=== PATIENT | female | born 1975 | race Two or more races ===

== ENCOUNTER 2019-05-28 14:28 | Inpatient (IN) | payer MEDICAID, OTHER ==
[~2019-05-28] VITALS: Ht 170.2 cm; Wt 103.3 kg
[2019-05-28] MEDS ORDERED: SODIUM CHLORIDE 0.9% 1,000 ML IV ONE (14:50)
[2019-05-28] MEDS ORDERED: HYDROmorphone HCL 2 MG/ML VL IV ONE (15:00)
[2019-05-28] MEDS ORDERED: ONDANSETRON HCL 4 MG/2 ML VIAL IV ONE (15:00)
[2019-05-28 16:02] LABS: Basophils # (auto) 0.1 uL; Basophils % (auto) 0.7 % (0.0-2.0); Eosinophils # (auto) 0.1 uL; Eosinophils % (auto) 1.4 % (0.0-7.0); Hematocrit 46.1 % (36.0-46.0); Hemoglobin 15.2 g/dL (12.2-16.2); Lymphocytes # (auto) 2.7 uL; Mean Corpuscular Hemoglobin 30.5 pg (28.0-32.0); Mean Corpuscular Hgb Conc. 33.1 g/dL (32.0-36.0); Mean Corpuscular Volume 92.2 fL (80.0-100.0); Monocytes # (auto) 0.5 uL; Monocytes % (auto) 5.1 % (0.0-12.0); Neutrophils % (auto) 63.8 % (37.0-80.0); Nucleated Red Blood Cells % 0.1 %; Platelet Count (auto) 233 10^3/uL (140-450); Red Cell Distribution Width 15.7 % (11.8-14.3); White Blood Cell 9.5 10^3/uL (4.4-10.8)
[2019-05-28 16:16] LABS: Albumin 2.9 g/dL (3.4-5.0); Anion Gap 9 (5-15); Blood Urea Nitrogen 8 mg/dL (7-18); Calcium 8.8 mg/dL (8.5-10.1); Carbon Dioxide 26 mmol/L (21-32); Chloride 102 mmol/L (98-107); Glucose 262 mg/dL (74-106); Magnesium 1.4 mg/dL (1.6-2.6); Sodium 137 mmol/L (136-145)
[2019-05-28 16:18] LABS: Alanine Aminotransferase 62 U/L (13-56); Aspartate Aminotransferase 30 U/L (15-37); BUN/Creatinine Ratio 11.9; GFR African American 122 mL/min; GFR Non-African American 101 mL/min
[2019-05-28 16:36] LABS: Alkaline Phosphatase 92 U/L (45-117); Bilirubin, Total 0.5 mg/dL (0.2-1.0); Total Protein 7.3 g/dL (6.4-8.2)
[2019-05-28] MEDS ORDERED: traMADol HCL 50 MG TAB PO PRN (18:30)
[2019-05-28] MEDS ORDERED: DEXTROSE (50%) 50ML SYRG IV PRN (18:30)
[2019-05-28] MEDS ORDERED: LACTULOSE 20Gm/30ML SOLN PO PRN (18:30)
[2019-05-28] MEDS ORDERED: ACETAMINOPHEN 500 MG TAB PO PRN (18:30)
[2019-05-28] MEDS ORDERED: NITROGLYCERIN 0.4 MG SL TAB SL PRN (18:30)
[2019-05-28] MEDS: SODIUM CHLORIDE 0.9% 1,000 ML IV SCH (18:50)
[2019-05-28 21:00] VITALS: BP 95/48
[2019-05-28] MEDS: PROMETHAZINE HCL 25 MG/ML 1ML IV PRN (21:09)
[2019-05-28] MEDS: ATORVASTATIN 20 MG TAB PO SCH (21:58)
[2019-05-28] MEDS: ACCU-CHEK COMFORT CURVE STRIP VI SCH (21:59)
[2019-05-28] MEDS: InsuLIN REG 1unit/0.01ml Soln (100units/ml) SC SCH (21:59)
[2019-05-28] MEDS: FAMOTIDINE 20 MG TAB PO SCH (21:59)
[2019-05-28 22:00] VITALS: BP 95/48
[2019-05-28] MEDS ORDERED: METOPROLOL TARTRATE 25 MG TAB PO SCH (22:00)
[2019-05-29] MEDS: TEMAZEPAM 15 MG CAP PO PRN (00:01)
[2019-05-29] MEDS: SODIUM CHLORIDE 0.9% 1,000 ML IV SCH ×2 (02:13→20:47)
[2019-05-29 05:00] VITALS: BP 103/60
[2019-05-29] MEDS: ACCU-CHEK COMFORT CURVE STRIP VI SCH ×4 (06:35→21:46)
[2019-05-29] MEDS: InsuLIN REG 1unit/0.01ml Soln (100units/ml) SC SCH ×3 (06:36→22:00)
[2019-05-29 06:50] LABS: Cholesterol 137 mg/dL (< 200); HDL Cholesterol 44 mg/dL (40-59); LDL Cholesterol 80 mg/dL (< 100); Triglycerides 99 mg/dL (< 150)
[2019-05-29] MEDS ORDERED: ADENOSINE 84 MG in GIVE UN-DILUTED 0 ML IV STA (08:31)
[2019-05-29 09:19] VITALS: BP 104/68
[2019-05-29] MEDS: METOPROLOL TARTRATE 25 MG TAB PO SCH ×2 (10:00→21:46)
[2019-05-29] MEDS: NITROGLYCERIN 0.2MG/HR TOPICAL PATCH TD SCH (10:06)
[2019-05-29] MEDS: FAMOTIDINE 20 MG TAB PO SCH (10:06)
[2019-05-29] MEDS: PROMETHAZINE HCL 25 MG/ML 1ML IV PRN (10:06)
[2019-05-29] MEDS: ENOXAPARIN SOD 40 MG/0.4 ML SYRINGE SC SCH (10:11)
[2019-05-29] MEDS: ASPirin 81 mg TAB PO SCH (10:12)
[2019-05-29] MEDS ORDERED: PANTOPRAZOLE 40 MG/10 ML VIAL INJ IV ONE (12:15)
[2019-05-29] MEDS ORDERED: DEXTROSE (50%) 50ML SYRG IV PRN (12:15)
[2019-05-29] MEDS: MAGNESIUM SULFATE 1GM/100ML 100 ML IV SCH ×2 (12:24→14:28)
[2019-05-29 13:00] VITALS: BP 146/111
[2019-05-29] MEDS ORDERED: MAGNESIUM SULFATE 1GM/100ML 100 ML IV ONE (14:27)
[2019-05-29] MEDS: ONDANSETRON HCL 4 MG/2 ML VIAL IV PRN ×2 (15:11→23:15)
[2019-05-29] MEDS: HYDROmorphone HCL 2 MG/ML VL IV PRN ×2 (15:11→23:14)
[2019-05-29 16:44] VITALS: BP 88/53
[2019-05-29 16:51] LABS: Alcohol, Urine < 3.0 mg/dL (0-5); Amphetamine Screen, Urine NEGATIVE (NEGATIVE); Barbiturate Scree,Urine NEGATIVE (NEGATIVE); Benzodiazephine Screen, Urine NEGATIVE (NEGATIVE); Cannabinoid Screen, Urine NEGATIVE (NEGATIVE); Cocaine Screen, Urine NEGATIVE (NEGATIVE); Opiate Scree,Urine NEGATIVE (NEGATIVE); Phencyclidine Screen, Urine NEGATIVE (NEGATIVE)
[2019-05-29 20:20] VITALS: BP 119/69
[2019-05-29] MEDS: ATORVASTATIN 20 MG TAB PO SCH (21:45)
[2019-05-29 22:00] VITALS: BP 119/69
[2019-05-30 05:00] VITALS: BP 94/74
[2019-05-30 06:08] LABS: Basophils # (auto) 0.1 uL; Basophils % (auto) 0.6 % (0.0-2.0); Eosinophils # (auto) 0.2 uL; Eosinophils % (auto) 2.5 % (0.0-7.0); Hematocrit 42.6 % (36.0-46.0); Hemoglobin 14.3 g/dL (12.2-16.2); Lymphocytes # (auto) 3.8 uL; Lymphocytes % (auto) 42.8 % (10.0-50.0); Mean Corpuscular Hemoglobin 31.1 pg (28.0-32.0); Mean Corpuscular Hgb Conc. 33.6 g/dL (32.0-36.0); Mean Corpuscular Volume 92.3 fL (80.0-100.0); Monocytes # (auto) 0.5 uL; Monocytes % (auto) 5.1 % (0.0-12.0); Neutrophils # (auto) 4.4 uL; Nucleated Red Blood Cells % 0.1 %; Platelet Count (auto) 239 10^3/uL (140-450); Red Blood Cells 4.62 10^6/uL (4.0-5.20); Red Cell Distribution Width 15.8 % (11.8-14.3); White Blood Cell 8.9 10^3/uL (4.4-10.8)
[2019-05-30] MEDS: ACCU-CHEK COMFORT CURVE STRIP VI SCH ×4 (06:14→21:17)
[2019-05-30] MEDS: InsuLIN REG 1unit/0.01ml Soln (100units/ml) SC SCH ×4 (06:14→22:31)
[2019-05-30 06:17] LABS: Calcium 8.9 mg/dL (8.5-10.1); Potassium 3.4 mmol/L (3.5-5.1)
[2019-05-30 06:19] LABS: BUN/Creatinine Ratio 10.6
[2019-05-30 06:22] LABS: Bilirubin, Total 0.8 mg/dL (0.2-1.0); Total Protein 7.3 g/dL (6.4-8.2)
[2019-05-30 08:12] VITALS: BP 124/67
[2019-05-30 09:40] VITALS: BP 124/67
[2019-05-30] MEDS: NITROGLYCERIN 0.2MG/HR TOPICAL PATCH TD SCH (10:00)
[2019-05-30] MEDS ORDERED: POTASSIUM CHLORIDE 20 MEQ, LIDOCAINE 1% (LOCAL ANESTH.) 2 ML in SODIUM CHL 0.9% 100 ML IV ONE (10:00)
[2019-05-30] MEDS: PANTOPRAZOLE 40 MG/10 ML VIAL INJ IV SCH (10:53)
[2019-05-30] MEDS: ASPirin 81 mg TAB PO SCH (10:53)
[2019-05-30] MEDS: ENOXAPARIN SOD 40 MG/0.4 ML SYRINGE SC SCH (10:54)
[2019-05-30] MEDS: METOPROLOL TARTRATE 25 MG TAB PO SCH ×2 (10:54→22:31)
[2019-05-30] MEDS: HYDROmorphone HCL 2 MG/ML VL IV PRN ×2 (10:57→17:46)
[2019-05-30] MEDS: SODIUM CHLORIDE 0.9% 1,000 ML IV SCH ×2 (12:32→23:39)
[2019-05-30 14:53] VITALS: BP 139/78
[2019-05-30 16:46] VITALS: BP 112/86
[2019-05-30] MEDS: SUCRALFATE 1 GM/10 ML ORAL SUSP PO SCH ×2 (17:06→22:30)
[2019-05-30] MEDS: ONDANSETRON HCL 4 MG/2 ML VIAL IV PRN (17:46)
[2019-05-30 20:15] VITALS: BP 117/77
[2019-05-30] MEDS: METOCLOPRAMIDE HCL 5MG/ml INJ 2ml VIAL IV SCH (22:00)
[2019-05-30] MEDS: ATORVASTATIN 20 MG TAB PO SCH (22:30)
[2019-05-31 05:30] VITALS: BP 121/69
[2019-05-31] MEDS: METOCLOPRAMIDE HCL 5MG/ml INJ 2ml VIAL IV SCH ×3 (06:00→22:00)
[2019-05-31] MEDS: ACCU-CHEK COMFORT CURVE STRIP VI SCH ×4 (06:37→22:00)
[2019-05-31 06:38] LABS: Basophils # (auto) 0 uL; Basophils % (auto) 0.6 % (0.0-2.0); Eosinophils # (auto) 0.2 uL; Eosinophils % (auto) 3.2 % (0.0-7.0); Lymphocytes # (auto) 2.6 uL; Lymphocytes % (auto) 39.2 % (10.0-50.0); Mean Corpuscular Hemoglobin 30.8 pg (28.0-32.0); Mean Corpuscular Hgb Conc. 33.3 g/dL (32.0-36.0); Mean Corpuscular Volume 92.6 fL (80.0-100.0); Monocytes # (auto) 0.4 uL; Monocytes % (auto) 6.6 % (0.0-12.0); Neutrophils # (auto) 3.3 uL; Neutrophils % (auto) 50.4 % (37.0-80.0); Nucleated Red Blood Cells % 0.1 %; Platelet Count (auto) 184 10^3/uL (140-450); Red Blood Cells 4.21 10^6/uL (4.0-5.20); Red Cell Distribution Width 15.4 % (11.8-14.3); White Blood Cell 6.6 10^3/uL (4.4-10.8)
[2019-05-31] MEDS: InsuLIN REG 1unit/0.01ml Soln (100units/ml) SC SCH ×4 (06:38→22:13)
[2019-05-31] MEDS: SUCRALFATE 1 GM/10 ML ORAL SUSP PO SCH ×4 (06:42→22:00)
[2019-05-31 06:54] LABS: Potassium 3.5 mmol/L (3.5-5.1)
[2019-05-31 07:01] LABS: Albumin 2.3 g/dL (3.4-5.0); BUN/Creatinine Ratio 8.2; Bilirubin, Total 0.7 mg/dL (0.2-1.0); Calcium 8.6 mg/dL (8.5-10.1); Total Protein 6.1 g/dL (6.4-8.2)
[2019-05-31 08:15] VITALS: BP 119/79
[2019-05-31 09:00] VITALS: BP 119/79
[2019-05-31] MEDS: ASPirin 81 mg TAB PO SCH (09:34)
[2019-05-31] MEDS: PANTOPRAZOLE 40 MG/10 ML VIAL INJ IV SCH (09:34)
[2019-05-31] MEDS: METOPROLOL TARTRATE 25 MG TAB PO SCH ×2 (09:35→22:13)
[2019-05-31] MEDS: HYDROmorphone HCL 2 MG/ML VL IV PRN ×2 (09:35→18:13)
[2019-05-31] MEDS: ENOXAPARIN SOD 40 MG/0.4 ML SYRINGE SC SCH (09:35)
[2019-05-31] MEDS: NITROGLYCERIN 0.2MG/HR TOPICAL PATCH TD SCH (10:00)
[2019-05-31 13:00] VITALS: BP 116/79
[2019-05-31] MEDS: SODIUM CHLORIDE 0.9% 1,000 ML IV SCH (13:23)
[2019-05-31] MEDS ORDERED: LORazepam 0.5 MG TAB PO PRN (13:45)
[2019-05-31] MEDS: ONDANSETRON HCL 4 MG/2 ML VIAL IV PRN (19:25)
[2019-05-31 22:00] VITALS: BP 109/69
[2019-05-31] MEDS: ATORVASTATIN 20 MG TAB PO SCH (22:00)
[2019-05-31] MEDS: TEMAZEPAM 15 MG CAP PO PRN (22:01)
[2019-06-01] MEDS: SODIUM CHLORIDE 0.9% 1,000 ML IV SCH ×2 (02:19→15:39)
[2019-06-01 05:37] LABS: Potassium 3.7 mmol/L (3.5-5.1)
[2019-06-01 05:47] LABS: BUN/Creatinine Ratio 4.9; Calcium 8.9 mg/dL (8.5-10.1)
[2019-06-01] MEDS: METOCLOPRAMIDE HCL 5MG/ml INJ 2ml VIAL IV SCH ×3 (05:59→22:00)
[2019-06-01] MEDS: ACCU-CHEK COMFORT CURVE STRIP VI SCH ×4 (05:59→22:00)
[2019-06-01 06:00] VITALS: BP 121/74
[2019-06-01] MEDS: InsuLIN REG 1unit/0.01ml Soln (100units/ml) SC SCH ×4 (06:10→22:00)
[2019-06-01] MEDS: SUCRALFATE 1 GM/10 ML ORAL SUSP PO SCH ×4 (06:10→21:55)
[2019-06-01] MEDS ORDERED: LIDOCAINE VISCOUS 2% 15ML UD ONE (08:35)
[2019-06-01] MEDS ORDERED: SODIUM CHLORIDE LOCK 10 ML ONE (08:35)
[2019-06-01] MEDS ORDERED: MIDAZOLAM HCL 5 MG/ML-1ML VIAL ONE (08:36)
[2019-06-01] MEDS ORDERED: diphenhdrAMINE HCL 50 MG/1 ML VL ONE (08:36)
[2019-06-01] MEDS ORDERED: fentaNYL CITRATE 100 MCG/2 ML VL ONE (08:36)
[2019-06-01] MEDS: PANTOPRAZOLE 40 MG/10 ML VIAL INJ IV SCH (09:07)
[2019-06-01] MEDS: METOPROLOL TARTRATE 25 MG TAB PO SCH ×2 (09:07→21:56)
[2019-06-01 09:45] VITALS: BP 148/96
[2019-06-01] MEDS: NITROGLYCERIN 0.2MG/HR TOPICAL PATCH TD SCH (10:00)
[2019-06-01] MEDS: ASPirin 81 mg TAB PO SCH (10:00)
[2019-06-01] MEDS: ENOXAPARIN SOD 40 MG/0.4 ML SYRINGE SC SCH (10:00)
[2019-06-01 10:36] LABS: INR 1.01 (0.9-1.15); Partial Thromboplastin Time 26.4 sec (23.64-32.05)
[2019-06-01 13:00] VITALS: BP 117/80
[2019-06-01 16:49] VITALS: BP 122/90
[2019-06-01] MEDS: HYDROmorphone HCL 2 MG/ML VL IV PRN (19:00)
[2019-06-01] MEDS: ATORVASTATIN 20 MG TAB PO SCH (21:56)
[2019-06-01 22:00] VITALS: BP 125/54
[2019-06-02 05:00] VITALS: BP 116/68
[2019-06-02] MEDS: SODIUM CHLORIDE 0.9% 1,000 ML IV SCH (06:41)
[2019-06-02] MEDS: SUCRALFATE 1 GM/10 ML ORAL SUSP PO SCH ×2 (06:42→10:03)
[2019-06-02] MEDS: METOCLOPRAMIDE HCL 5MG/ml INJ 2ml VIAL IV SCH ×3 (06:42→22:00)
[2019-06-02] MEDS: ACCU-CHEK COMFORT CURVE STRIP VI SCH ×4 (06:43→22:27)
[2019-06-02] MEDS: InsuLIN REG 1unit/0.01ml Soln (100units/ml) SC SCH ×4 (06:43→22:28)
[2019-06-02 09:00] VITALS: BP 110/62
[2019-06-02] MEDS: PANTOPRAZOLE 40 MG/10 ML VIAL INJ IV SCH (10:03)
[2019-06-02] MEDS: NITROGLYCERIN 0.2MG/HR TOPICAL PATCH TD SCH (10:04)
[2019-06-02] MEDS: HYDROmorphone HCL 2 MG/ML VL IV PRN ×2 (10:06→23:01)
[2019-06-02] MEDS: METOPROLOL TARTRATE 25 MG TAB PO SCH ×2 (10:06→22:26)
[2019-06-02] MEDS: ENOXAPARIN SOD 40 MG/0.4 ML SYRINGE SC SCH (10:06)
[2019-06-02] MEDS: ASPirin 81 mg TAB PO SCH (10:06)
[2019-06-02 13:25] VITALS: BP 99/47
[2019-06-02 17:00] VITALS: BP 97/50
[2019-06-02 21:53] VITALS: BP 113/70
[2019-06-02] MEDS: ATORVASTATIN 20 MG TAB PO SCH (22:25)
[2019-06-02] MEDS: PANTOPRAZOLE 40 MG TAB PO SCH (22:27)
[2019-06-03 05:00] VITALS: BP 109/56
[2019-06-03] MEDS: METOCLOPRAMIDE HCL 5MG/ml INJ 2ml VIAL IV SCH (06:00)
[2019-06-03] MEDS: ACCU-CHEK COMFORT CURVE STRIP VI SCH ×2 (06:09→11:30)
[2019-06-03] MEDS: InsuLIN REG 1unit/0.01ml Soln (100units/ml) SC SCH ×2 (06:21→11:30)
[2019-06-03 06:56] LABS: Basophils # (auto) 0 uL; Basophils % (auto) 0.3 % (0.0-2.0); Eosinophils # (auto) 0.3 uL; Eosinophils % (auto) 3.6 % (0.0-7.0); Hematocrit 38.8 % (36.0-46.0); Hemoglobin 13.2 g/dL (12.2-16.2); Lymphocytes % (auto) 28.6 % (10.0-50.0); Mean Corpuscular Hemoglobin 31.3 pg (28.0-32.0); Mean Corpuscular Hgb Conc. 34.1 g/dL (32.0-36.0); Monocytes # (auto) 0.4 uL; Monocytes % (auto) 5.1 % (0.0-12.0); Neutrophils # (auto) 4.5 uL; Neutrophils % (auto) 62.4 % (37.0-80.0); Nucleated Red Blood Cells % 0.1 %; Platelet Count (auto) 198 10^3/uL (140-450); Red Blood Cells 4.22 10^6/uL (4.0-5.20); Red Cell Distribution Width 15.5 % (11.8-14.3); White Blood Cell 7.1 10^3/uL (4.4-10.8)
[2019-06-03] MEDS: SUCRALFATE 1 GM/10 ML ORAL SUSP PO SCH ×2 (07:00→11:30)
[2019-06-03 07:13] LABS: Albumin 2.3 g/dL (3.4-5.0); Calcium 8.6 mg/dL (8.5-10.1); Potassium 3.7 mmol/L (3.5-5.1)
[2019-06-03 07:17] LABS: BUN/Creatinine Ratio 5.6; Bilirubin, Total 0.4 mg/dL (0.2-1.0); Total Protein 6.2 g/dL (6.4-8.2)
[2019-06-03 08:00] VITALS: BP 123/62
[2019-06-03 09:00] VITALS: BP 107/62
[2019-06-03] MEDS ORDERED: SODIUM CHLORIDE LOCK 10 ML ONE (09:12)
[2019-06-03] MEDS ORDERED: diphenhdrAMINE HCL 50 MG/1 ML VL ONE (09:13)
[2019-06-03] MEDS ORDERED: FLUMAZENIL 0.1 MG/ML INJ 10ML MDV IV ONE (09:13)
[2019-06-03] MEDS ORDERED: NALOXONE HCL 0.4 MG/ML VIAL ONE (09:13)
[2019-06-03] MEDS ORDERED: LIDOCAINE VISCOUS 2% 15ML UD ONE (09:13)
[2019-06-03] MEDS: NITROGLYCERIN 0.2MG/HR TOPICAL PATCH TD SCH (10:00)
[2019-06-03] MEDS: ASPirin 81 mg TAB PO SCH (10:00)
[2019-06-03] MEDS: METOPROLOL TARTRATE 25 MG TAB PO SCH (10:00)
[2019-06-03] MEDS: ENOXAPARIN SOD 40 MG/0.4 ML SYRINGE SC SCH (10:00)
[2019-06-03] MEDS: PANTOPRAZOLE 40 MG TAB PO SCH (10:00)
[2019-06-03] MEDS: SODIUM CHLORIDE 0.9% 1,000 ML IV SCH (10:53)
[2019-06-03] MEDS: MIDAZOLAM HCL 5 MG/ML-1ML VIAL ONE ×2 (13:36→13:39)
[2019-06-03] MEDS: fentaNYL CITRATE 100 MCG/2 ML VL ONE ×2 (13:36→13:39)
[2019-06-03 14:16] VITALS: BP 107/62
[2019-06-03 14:18] VITALS: BP 124/74
== END 2019-06-03 15:25 | disposition home or self-care (01) | DRG 241 ==
LOC: ER 14:41 → TELE 14:42 → TELE-EAST 20:18
PROVIDERS: ADMIT Internal Medicine; ATTEND Internal Medicine
PROC: 0DB78ZX Excision of Stomach, Pylorus, Via Natural or Artificial Opening Endoscopic, Diagnostic (ICD-10-PCS; principal; 2019-06-03 13:32)
DX: K29.70 Gastritis, unspecified, without bleeding (principal); E43 Unspecified severe protein-calorie malnutrition; K31.84 Gastroparesis; E11.43 Type 2 diabetes mellitus with diabetic autonomic (poly)neuropathy; E66.01 Morbid (severe) obesity due to excess calories; E83.42 Hypomagnesemia; R07.89 Other chest pain; I10 Essential (primary) hypertension; Z88.6 Allergy status to analgesic agent; Z83.3 Family history of diabetes mellitus; Z90.49 Acquired absence of other specified parts of digestive tract; Z91.19 Patient's noncompliance with other medical treatment and regimen; Z68.35 Body mass index [BMI] 35.0-35.9, adult
CPT/HCPCS: 36415; 43239; 71045; 76705; 78452; 80048; 80053; 80061; 80307; 82550; 82962; 83036; 83690; 83735; 83880; 84484; 84702; 85025; 85379; 85610; 85652; 85730; 86141; 87081; 93017; 96361; 96365; 96375; C9113; G0378; J0153; J1815; J2001; J2250; J2405

== ENCOUNTER 2019-06-12 12:36 | Emergency (ER) | payer MEDICAID ==
[~2019-06-12] VITALS: Ht 170.2 cm; Wt 90.7 kg
[2019-06-12 14:05] LABS: Basophils # (auto) 0.1 uL; Basophils % (auto) 0.8 % (0.0-2.0); Eosinophils # (auto) 0.2 uL; Eosinophils % (auto) 1.9 % (0.0-7.0); Hematocrit 45.4 % (36.0-46.0); Hemoglobin 15.3 g/dL (12.2-16.2); Lymphocytes # (auto) 3.3 uL; Mean Corpuscular Hemoglobin 31.2 pg (28.0-32.0); Mean Corpuscular Hgb Conc. 33.6 g/dL (32.0-36.0); Mean Corpuscular Volume 92.7 fL (80.0-100.0); Monocytes # (auto) 0.7 uL; Monocytes % (auto) 5.4 % (0.0-12.0); Neutrophils % (auto) 64.9 % (37.0-80.0); Platelet Count (auto) 357 10^3/uL (140-450); Red Cell Distribution Width 15.4 % (11.8-14.3); White Blood Cell 12.4 10^3/uL (4.4-10.8)
[2019-06-12 14:23] LABS: Albumin 3.5 g/dL (3.4-5.0); Potassium 3.8 mmol/L (3.5-5.1)
[2019-06-12 14:26] LABS: BUN/Creatinine Ratio 13.4; Bilirubin, Total 0.6 mg/dL (0.2-1.0); Total Protein 8.8 g/dL (6.4-8.2)
[2019-06-12] MEDS ORDERED: SODIUM CHLORIDE 0.9% 1,000 ML IV ONE (20:30)
[2019-06-12] MEDS ORDERED: ONDANSETRON HCL 4 MG/2 ML VIAL IV ONE (20:30)
[2019-06-12] MEDS ORDERED: KETOROLAC TROMETH 15 mg/ml 1ML VL IV ONE (20:45)
[2019-06-12] MEDS ORDERED: LORazepam 2MG/ML-1ML VIAL IV ONE (23:30)
[2019-06-13 00:58] VITALS: BP 153/101
[2019-06-13] MEDS ORDERED: SODIUM CHLORIDE 0.9% 1,000 ML IV ONE (01:00)
== END 2019-06-13 02:49 | disposition home or self-care (01) ==
LOC: ER 12:36
DX: K29.00 Acute gastritis without bleeding (principal); E11.9 Type 2 diabetes mellitus without complications; I10 Essential (primary) hypertension; Z88.5 Allergy status to narcotic agent
CPT/HCPCS: 36415; 74176; 80053; 82010; 82962; 85025; 96361; 96374; 96375; 99284; J1885; J2060; J2405

== ENCOUNTER 2021-10-02 22:35 | Inpatient (IN) | payer MEDICAID ==
[~2021-10-02] VITALS: Ht 170.2 cm; Wt 103.4 kg
[2021-10-02 23:36] LABS: Basophils # (auto) 0.3 10 ^3/uL (0-0.2); Basophils % (auto) 2.4 % (0.0-2.0); Eosinophils # (auto) 0 10 ^3/uL (0-0.8); Eosinophils % (auto) 0.2 % (0.0-7.0); Hematocrit 47.5 % (36.0-46.0); Hemoglobin 15.7 g/dL (12.2-16.2); Lymphocytes # (auto) 1.7 10 ^3/uL (0.4-5.4); Lymphocytes % (auto) 14.6 % (10.0-50.0); Mean Corpuscular Hemoglobin 30.8 pg (28.0-32.0); Mean Corpuscular Hgb Conc. 33.1 g/dL (32.0-36.0); Mean Corpuscular Volume 93.2 fL (80.0-100.0); Monocytes # (auto) 0.5 10 ^3/uL (0-1.3); Monocytes % (auto) 4.2 % (0.0-12.0); Neutrophils # (auto) 9.2 10 ^3/uL (1.6-8.6); Neutrophils % (auto) 78.6 % (37.0-80.0); Nucleated Red Blood Cells % 0.1 %; Red Cell Distribution Width 13.3 % (11.8-14.3); White Blood Cell 11.7 10^3/uL (4.4-10.8)
[2021-10-02 23:55] LABS: Albumin 3.6 g/dL (3.4-5.0); Calcium 9.7 mg/dL (8.5-10.1); Potassium 4.3 mmol/L (3.5-5.1)
[2021-10-02 23:58] LABS: BUN/Creatinine Ratio 32.4; Bilirubin, Total 0.8 mg/dL (0.2-1.0); Total Protein 8.7 g/dL (6.4-8.2)
[2021-10-03] MEDS ORDERED: ONDANSETRON HCL 4 MG/2 ML VIAL IV ONE (02:00)
[2021-10-03] MEDS ORDERED: DEXTROSE (50%) 50ML SYRG IV PRN ×2 (02:00→11:30)
[2021-10-03] MEDS ORDERED: SODIUM CHLORIDE 0.9% 2,000 ML IV ONE (02:00)
[2021-10-03] MEDS: ACCU-CHEK COMFORT CURVE STRIP VI SCH ×6 (04:25→23:57)
[2021-10-03] MEDS: InsuLIN REG 1unit/0.01ml Soln (100units/ml) SC SCH ×6 (04:30→23:57)
[2021-10-03] MEDS ORDERED: ACETAMINOPHEN 325 MG TAB PO ONE (05:00)
[2021-10-03] MEDS ORDERED: METOCLOPRAMIDE HCL 5MG/ml INJ 2ml VIAL IV ONE ×2 (06:30→10:15)
[2021-10-03 06:54] LABS: Calcium 9.9 mg/dL (8.5-10.1); Potassium 4.2 mmol/L (3.5-5.1)
[2021-10-03 06:58] LABS: BUN/Creatinine Ratio 33.6
[2021-10-03] MEDS ORDERED: SODIUM CHLORIDE 0.9% 1,000 ML IV ONE (08:15)
[2021-10-03] MEDS ORDERED: InsuLIN REG 1unit/0.01ml Soln (100units/ml) IV ONE (10:30)
[2021-10-03] MEDS ORDERED: LACTATED RINGER'S 1,000 ML IV ONE ×2 (11:15→11:30)
[2021-10-03] MEDS ORDERED: ONDANSETRON HCL 4 MG/2 ML VIAL IV PRN (11:30)
[2021-10-03] MEDS ORDERED: INSULIN LANTUS (GLARGINE) 1 /0.01ml (100units/ml) SC ONE (11:30)
[2021-10-03] MEDS ORDERED: DOCUSATE SOD 100 MG CAP PO PRN (11:30)
[2021-10-03] MEDS ORDERED: METOCLOPRAMIDE HCL 5MG/ml INJ 2ml VIAL IV PRN (11:30)
[2021-10-03] MEDS ORDERED: HYDROcodone-ACET 5/325MG TAB PO PRN (11:30)
[2021-10-03] MEDS ORDERED: ACETAMINOPHEN 325 MG TAB PO PRN (11:30)
[2021-10-03 15:06] LABS: BUN/Creatinine Ratio 40.8; Calcium 8.9 mg/dL (8.5-10.1); Potassium 3.8 mmol/L (3.5-5.1)
[2021-10-03 18:49] LABS: BUN/Creatinine Ratio 35.5
[2021-10-03 22:39] LABS: BUN/Creatinine Ratio 30.4; Calcium 8.6 mg/dL (8.5-10.1); Potassium 3.8 mmol/L (3.5-5.1)
[2021-10-04 00:35] VITALS: BP 166/84
[2021-10-04] MEDS ORDERED: dilTIAZem 25 MG/5 ML VIAL IV ONE (01:00)
[2021-10-04] MEDS ORDERED: PIOG1TAB37 PO (01:09)
[2021-10-04] MEDS ORDERED: ATOR-47 PO (01:09)
[2021-10-04] MEDS ORDERED: GLIP5TAB12 PO (01:09)
[2021-10-04] MEDS ORDERED: FURO40TA4 PO (01:09)
[2021-10-04 02:09] LABS: BUN/Creatinine Ratio 29.2; Calcium 9.1 mg/dL (8.5-10.1); Potassium 3.6 mmol/L (3.5-5.1)
[2021-10-04] MEDS: InsuLIN REG 1unit/0.01ml Soln (100units/ml) SC SCH ×4 (04:00→17:19)
[2021-10-04] MEDS: ACCU-CHEK COMFORT CURVE STRIP VI SCH ×5 (04:00→16:59)
[2021-10-04 05:00] VITALS: BP 135/71
[2021-10-04 06:29] LABS: BUN/Creatinine Ratio 32.7; Potassium 3.5 mmol/L (3.5-5.1)
[2021-10-04 09:00] VITALS: BP 134/92
[2021-10-04] MEDS ORDERED: PANTOPRAZOLE 40 MG/10 ML VIAL INJ IV ONE (10:45)
[2021-10-04 13:00] VITALS: BP 147/101
[2021-10-04] MEDS ORDERED: SODIUM CHLORIDE 0.9% 1,000 ML IV SCH (14:45)
[2021-10-04] MEDS ORDERED: DEXTROSE (50%) 50ML SYRG IV PRN (14:45)
[2021-10-04] MEDS ORDERED: LABETALOL HCL 5 MG/ML 4ML SYRINGE IV PRN (14:45)
[2021-10-04] MEDS ORDERED: CHOL20007 PO (16:05)
[2021-10-04] MEDS ORDERED: METF-490 PO (16:05)
[2021-10-04] MEDS ORDERED: INSU300I SC (16:05)
[2021-10-04] MEDS ORDERED: SERT25TA14 PO (16:05)
[2021-10-04] MEDS ORDERED: MONT-8 PO (16:05)
[2021-10-04] MEDS ORDERED: POLY33504 PO (16:05)
[2021-10-04] MEDS ORDERED: SEMA14TA PO (16:05)
[2021-10-04] MEDS ORDERED: SERT50TA19 PO (16:05)
[2021-10-04] MEDS ORDERED: SITA100T7 PO (16:05)
[2021-10-04] MEDS ORDERED: ASPI-543 PO (16:05)
[2021-10-04] MEDS: SUCRALFATE 1 GM TAB PO SCH ×2 (16:59→22:00)
[2021-10-04 17:00] VITALS: BP 163/97
[2021-10-04] MEDS: METOCLOPRAMIDE HCL 5MG/ml INJ 2ml VIAL IV SCH (17:01)
[2021-10-04 22:00] VITALS: BP 152/90
[2021-10-04] MEDS ORDERED: INSULIN LANTUS (GLARGINE) 1 /0.01ml (100units/ml) SC SCH (22:00)
[2021-10-04] MEDS ORDERED: PANTOPRAZOLE 40 MG TAB PO SCH (22:00)
[2021-10-04] MEDS: KETOROLAC TROMETH 30 MG/ML 1ML VIAL IV PRN (22:50)
[2021-10-04] MEDS: PANTOPRAZOLE 40 MG/10 ML VIAL INJ IV SCH (23:34)
[2021-10-05] MEDS: METOCLOPRAMIDE HCL 5MG/ml INJ 2ml VIAL IV SCH ×4 (01:48→17:43)
[2021-10-05 05:00] VITALS: BP 105/70
[2021-10-05] MEDS: ACCU-CHEK COMFORT CURVE STRIP VI SCH ×4 (06:00→17:43)
[2021-10-05] MEDS: InsuLIN REG 1unit/0.01ml Soln (100units/ml) SC SCH ×4 (06:00→18:08)
[2021-10-05 06:38] LABS: Albumin 2.6 g/dL (3.4-5.0); Calcium 8.4 mg/dL (8.5-10.1)
[2021-10-05 06:41] LABS: BUN/Creatinine Ratio 27.6; Bilirubin, Total 0.8 mg/dL (0.2-1.0); Total Protein 6.5 g/dL (6.4-8.2)
[2021-10-05 06:47] LABS: Basophils # (auto) 0.1 10 ^3/uL (0-0.2); Basophils % (auto) 0.9 % (0.0-2.0); Eosinophils # (auto) 0.1 10 ^3/uL (0-0.8); Eosinophils % (auto) 0.9 % (0.0-7.0); Hematocrit 40.9 % (36.0-46.0); Hemoglobin 13.8 g/dL (12.2-16.2); Lymphocytes # (auto) 3.8 10 ^3/uL (0.4-5.4); Lymphocytes % (auto) 45.9 % (10.0-50.0); Mean Corpuscular Hemoglobin 31.3 pg (28.0-32.0); Mean Corpuscular Hgb Conc. 33.8 g/dL (32.0-36.0); Mean Corpuscular Volume 92.8 fL (80.0-100.0); Monocytes # (auto) 0.6 10 ^3/uL (0-1.3); Monocytes % (auto) 6.9 % (0.0-12.0); Neutrophils # (auto) 3.8 10 ^3/uL (1.6-8.6); Neutrophils % (auto) 45.4 % (37.0-80.0); Nucleated Red Blood Cells % 0.1 %; Red Blood Cells 4.41 10^6/uL (4.0-5.20); Red Cell Distribution Width 12.9 % (11.8-14.3); White Blood Cell 8.3 10^3/uL (4.4-10.8)
[2021-10-05] MEDS: KETOROLAC TROMETH 30 MG/ML 1ML VIAL IV PRN (06:58)
[2021-10-05] MEDS: SUCRALFATE 1 GM TAB PO SCH ×4 (07:00→21:20)
[2021-10-05 09:00] VITALS: BP 128/77
[2021-10-05] MEDS: PANTOPRAZOLE 40 MG/10 ML VIAL INJ IV SCH ×2 (09:43→21:28)
[2021-10-05] MEDS: LISINOPRIL 20 MG TAB PO SCH (09:43)
[2021-10-05] MEDS: POTASSIUM CHL 20MEQ/100ML 100 ML IV SCH ×2 (12:38→14:49)
[2021-10-05 13:00] VITALS: BP 109/58
[2021-10-05] MEDS: SODIUM CHLORIDE 0.9% 1,000 ML IV SCH (14:50)
[2021-10-05 16:45] VITALS: BP 114/73
[2021-10-05 22:00] VITALS: BP 127/78
[2021-10-05] MEDS ORDERED: INSULIN LANTUS (GLARGINE) 1 /0.01ml (100units/ml) SC SCH (22:00)
[2021-10-05 23:14] LABS: Urine Bacteria NONE SEEN /hpf (None Seen); Urine Blood Negative /uL (Negative); Urine Hyaline Cast FEW /lpf (0 - 2); Urine Specific Gravity 1.026 (1.001-1.035); Urine WBC 5 /hpf (0 - 5)
[2021-10-06] MEDS: ACCU-CHEK COMFORT CURVE STRIP VI SCH ×4 (00:53→17:19)
[2021-10-06] MEDS: METOCLOPRAMIDE HCL 5MG/ml INJ 2ml VIAL IV SCH ×4 (00:53→17:18)
[2021-10-06] MEDS: InsuLIN REG 1unit/0.01ml Soln (100units/ml) SC SCH ×4 (01:10→18:14)
[2021-10-06 05:00] VITALS: BP 112/64
[2021-10-06 05:43] LABS: Potassium 3.8 mmol/L (3.5-5.1)
[2021-10-06 05:51] LABS: BUN/Creatinine Ratio 21.7; Calcium 8.5 mg/dL (8.5-10.1); Magnesium 2.3 mg/dL (1.6-2.6)
[2021-10-06] MEDS: SODIUM CHLORIDE 0.9% 1,000 ML IV SCH (06:40)
[2021-10-06] MEDS: SUCRALFATE 1 GM TAB PO SCH ×3 (07:23→17:18)
[2021-10-06 09:05] VITALS: BP 120/70
[2021-10-06] MEDS: LISINOPRIL 20 MG TAB PO SCH (09:38)
[2021-10-06] MEDS: PANTOPRAZOLE 40 MG/10 ML VIAL INJ IV SCH (09:38)
[2021-10-06 12:49] VITALS: BP 120/74
[2021-10-06] MEDS ORDERED: METO5TAB67 PO (13:23)
[2021-10-06] MEDS ORDERED: PANT40TA2 PO (13:23)
[2021-10-06] MEDS ORDERED: SUCR1TAB22 PO (13:23)
[2021-10-06 16:45] VITALS: BP 112/72
[2021-10-06 17:20] VITALS: BP 120/70
== END 2021-10-06 18:54 | disposition home or self-care (01) | DRG 241 ==
LOC: ER 22:35 → TELE 10-03 11:27 → TELE-WESTW 10-03 22:50
PROVIDERS: ADMIT Internal Medicine; ATTEND Internal Medicine
DX: K29.70 Gastritis, unspecified, without bleeding (principal); N17.0 Acute kidney failure with tubular necrosis; N18.9 Chronic kidney disease, unspecified; E11.21 Type 2 diabetes mellitus with diabetic nephropathy; E11.22 Type 2 diabetes mellitus with diabetic chronic kidney disease; E87.6 Hypokalemia; E11.43 Type 2 diabetes mellitus with diabetic autonomic (poly)neuropathy; K31.84 Gastroparesis; E78.5 Hyperlipidemia, unspecified; Z20.822 Contact with and (suspected) exposure to COVID-19; E66.9 Obesity, unspecified; I12.9 Hypertensive chronic kidney disease with stage 1 through stage 4 chronic kidney disease, or unspecified chronic kidney disease; Z79.899 Other long term (current) drug therapy; Z83.3 Family history of diabetes mellitus; Z87.891 Personal history of nicotine dependence; Z90.49 Acquired absence of other specified parts of digestive tract; Z79.84 Long term (current) use of oral hypoglycemic drugs; Z79.4 Long term (current) use of insulin
CPT/HCPCS: 36415; 74176; 76775; 80048; 80053; 80061; 81001; 82010; 82150; 82306; 82962; 83036; 83605; 83690; 83735; 84443; 84702; 85025; 93005; 96361; 96372; 96374; 96375; C9113; G0378; J1815; J1885; J2405; J3480; J3490

== ENCOUNTER 2023-05-20 11:57 | Inpatient (IN) | payer MEDICAID ==
[~2023-05-20] VITALS: Ht 170.2 cm; Wt 110.0 kg
[~2023-05-20 11:57] MED LIST: ASPI-543 PO; ATOR-47 PO; CHOL20007 PO; FURO40TA4 PO; GLIP5TAB12 PO; INSU300I SC; METF-490 PO; METO-281 PO; METO5TAB67 PO; MONT-8 PO; PANT40TA2 PO; PIOG1TAB37 PO; POLY33504 PO; SEMA14TA2 PO; SERT25TA28 PO; SITA100T7 PO; SUCR1TAB22 PO; ZOFR4T PO
[2023-05-20 13:38] LABS: Basophils # (auto) 0.1 10 ^3/uL (0-0.2); Basophils % (auto) 0.9 % (0.0-2.0); Eosinophils # (auto) 0 10 ^3/uL (0-0.8); Eosinophils % (auto) 0.1 % (0.0-7.0); Hematocrit 50.6 % (36.0-46.0); Hemoglobin 16.5 g/dL (12.2-16.2); Lymphocytes # (auto) 1.7 10 ^3/uL (0.4-5.4); Lymphocytes % (auto) 10.1 % (10.0-50.0); Mean Corpuscular Hemoglobin 29.7 pg (28.0-32.0); Mean Corpuscular Hgb Conc. 32.6 g/dL (32.0-36.0); Mean Corpuscular Volume 91.1 fL (80.0-100.0); Monocytes # (auto) 0.5 10 ^3/uL (0-1.3); Monocytes % (auto) 2.9 % (0.0-12.0); Neutrophils # (auto) 14.6 10 ^3/uL (1.6-8.6); Red Blood Cells 5.55 10^6/uL (4.0-5.20); Red Cell Distribution Width 13.1 % (11.8-14.3)
[2023-05-20] MEDS: MORPHINE SULFATE 4 MG/ML SYR/VIAL IV ONE (13:45)
[2023-05-20] MEDS: SODIUM CHLORIDE 0.9% 1,000 ML IVB ONE (13:45)
[2023-05-20 13:57] LABS: Alanine Aminotransferase 16 U/L (7-40); Albumin 4.4 g/dL (3.2-4.8); Alkaline Phosphatase 120 U/L (46-116); Anion Gap 19 (5-15); Aspartate Aminotransferase 15 U/L (13-40); Bilirubin, Total 0.5 mg/dL (0.2-1.0); Blood Urea Nitrogen 17 mg/dL (9-23); Calcium 10.4 mg/dL (8.5-10.1); Carbon Dioxide 21 mmol/L (20-30); Chloride 94 mmol/L (98-107); Potassium 4.9 mmol/L (3.5-5.1); Sodium 134 mmol/L (136-145)
[2023-05-20 14:06] LABS: Glucose 531 mg/dL (74-106)
[2023-05-20] MEDS: SODIUM CHLORIDE 0.9% 1,000 ML IV ONE ×2 (15:00→18:32)
[2023-05-20] MEDS ORDERED: DEXTROSE (50%) 50ML SYRG IV PRN ×2 (16:45→18:15)
[2023-05-20] MEDS ORDERED: NITROGLYCERIN 0.4 MG SL TAB SL PRN (16:45)
[2023-05-20] MEDS ORDERED: DOCUSATE SOD 100 MG CAP PO PRN (16:45)
[2023-05-20] MEDS ORDERED: ATOR20TA50 PO (17:02)
[2023-05-20] MEDS ORDERED: METO-517 PO (17:02)
[2023-05-20] MEDS: ACCU-CHEK COMFORT CURVE STRIP VI SCH ×2 (17:09→19:49)
[2023-05-20] MEDS: PROCHLORPERAZINE EDISYLATE 5 MG/ML 2ML VIAL IV ONE (17:19)
[2023-05-20] MEDS: PANTOPRAZOLE 40 MG/10 ML VIAL INJ IV ONE (17:20)
[2023-05-20 17:42] LABS: Chloride 95 mmol/L (98-107); Potassium 5.1 mmol/L (3.5-5.1); Sodium 136 mmol/L (136-145)
[2023-05-20 17:43] LABS: Anion Gap 19 (5-15); Carbon Dioxide 22 mmol/L (20-30)
[2023-05-20 17:44] LABS: Calcium 10.2 mg/dL (8.5-10.1)
[2023-05-20 17:48] LABS: BUN/Creatinine Ratio 15.6 (10.0-20.0); Blood Urea Nitrogen 19 mg/dL (9-23)
[2023-05-20 17:52] LABS: Glucose 558 mg/dL (74-106)
[2023-05-20] MEDS: cefTRIAXone 1GM/50ML D5W 50 ML IV ONE (18:30)
[2023-05-20 18:34] LABS: Phosphorus 5.3 mg/dL (2.4-5.1)
[2023-05-20 18:47] LABS: Base Excess -7.6 mmol/L (-2.0-2.0)
[2023-05-20] MEDS: InsuLIN REG 1unit/0.01ml Soln (100units/ml) IV ONE (19:46)
[2023-05-20] MEDS: INSULIN LANTUS (GLARGINE) 1 /0.01ml (100units/ml) SC ONE (19:47)
[2023-05-20] MEDS: INSULIN DRIP 100 UNIT/100ML 100 ML IV SCH (19:49)
[2023-05-20] MEDS: SODIUM CHLORIDE 0.9% 1,000 ML IV SCH (19:57)
[2023-05-20 20:00] VITALS: PULSE 129; RESP 26; O2SAT 97
[2023-05-20] MEDS ORDERED: InsuLIN REG 1unit/0.01ml Soln (100units/ml) SC SCH (20:00)
[2023-05-20 20:35] LABS: COVID19 ANTIGEN SOFIA FIA NEGATIVE (NEGATIVE)
[2023-05-20] MEDS: ONDANSETRON HCL 4 MG/2 ML VIAL IV PRN (21:57)
[2023-05-20] MEDS: ATORVASTATIN 20 MG TAB PO SCH (22:00)
[2023-05-20 22:58] LABS: Chloride 103 mmol/L (98-107); Potassium 3.9 mmol/L (3.5-5.1); Sodium 139 mmol/L (136-145)
[2023-05-20 22:59] LABS: Anion Gap 16 (5-15); Carbon Dioxide 20 mmol/L (20-30)
[2023-05-20 23:00] LABS: Calcium 9.1 mg/dL (8.7-10.4)
[2023-05-20 23:04] LABS: Blood Urea Nitrogen 14 mg/dL (9-23); Glucose 379 mg/dL (74-106)
[2023-05-20 23:52] LABS: BUN/Creatinine Ratio 12.7 (10.0-20.0)
[2023-05-20] MEDS: traMADol HCL 50 MG TAB PO ONE (23:57)
[2023-05-21] MEDS: D5W/SOD CHLO 0.9% 1,000 ML IV SCH (03:35)
[2023-05-21 04:05] LABS: Urine Bacteria FEW /hpf (None Seen); Urine Blood Negative /uL (Negative); Urine Clarity Clear (Clear); Urine Color Yellow (Yellow); Urine Hyaline Cast FEW /lpf (0 - 2); Urine Protein, UAD 2+ (Negative); Urine Specific Gravity 1.031 (1.001-1.035); Urine Urobilinogen Normal (Negative); Urine WBC 2 /hpf (0 - 5); Urine pH 5.5 (5.0-8.0)
[2023-05-21 04:13] LABS: Amphetamine Screen, Urine Neg (NEGATIVE); Barbiturate Scree,Urine Neg (NEGATIVE); Benzodiazephine Screen, Urine Neg (NEGATIVE); Cocaine Screen, Urine Neg (NEGATIVE)
[2023-05-21 04:14] LABS: Cannabinoid Screen, Urine Neg (NEGATIVE); Opiate Scree,Urine Neg (NEGATIVE); Phencyclidine Screen, Urine Neg (NEGATIVE)
[2023-05-21 05:33] LABS: Alanine Aminotransferase 13 U/L (7-40); Albumin 3.4 g/dL (3.2-4.8); Alkaline Phosphatase 86 U/L (46-116); Anion Gap 8 (5-15); Aspartate Aminotransferase < 8 U/L (13-40); BUN/Creatinine Ratio 25.6 (10.0-20.0); Bilirubin, Total 0.5 mg/dL (0.2-1.0); Blood Urea Nitrogen 22 mg/dL (9-23); Calcium 8.4 mg/dL (8.7-10.4); Carbon Dioxide 26 mmol/L (20-30); Chloride 107 mmol/L (98-107); Glucose 262 mg/dL (74-106); Potassium 3.6 mmol/L (3.5-5.1); Sodium 141 mmol/L (136-145); Total Protein 6.2 g/dL (5.7-8.2)
[2023-05-21 05:41] LABS: Basophils # (auto) 0.1 10 ^3/uL (0-0.2); Basophils % (auto) 0.6 % (0.0-2.0); Eosinophils # (auto) 0 10 ^3/uL (0-0.8); Eosinophils % (auto) 0.1 % (0.0-7.0); Hematocrit 40.9 % (36.0-46.0); Hemoglobin 13.6 g/dL (12.2-16.2); Lymphocytes # (auto) 2.7 10 ^3/uL (0.4-5.4); Lymphocytes % (auto) 17.7 % (10.0-50.0); Mean Corpuscular Hemoglobin 29.9 pg (28.0-32.0); Mean Corpuscular Hgb Conc. 33.2 g/dL (32.0-36.0); Mean Corpuscular Volume 90.1 fL (80.0-100.0); Monocytes # (auto) 1.3 10 ^3/uL (0-1.3); Monocytes % (auto) 8.7 % (0.0-12.0); Neutrophils # (auto) 11.2 10 ^3/uL (1.6-8.6); Neutrophils % (auto) 72.9 % (37.0-80.0); Red Blood Cells 4.54 10^6/uL (4.0-5.20); Red Cell Distribution Width 13.8 % (11.8-14.3); White Blood Cell 15.4 10^3/uL (4.4-10.8)
[2023-05-21 07:25] VITALS: O2SAT 97
[2023-05-21] MEDS: INSULIN DRIP 100 UNIT/100ML 100 ML IV SCH (09:00)
[2023-05-21] MEDS: cefTRIAXone 1GM/50ML D5W 50 ML IV SCH (09:43)
[2023-05-21] MEDS ORDERED: INSULIN LANTUS (GLARGINE) 1 /0.01ml (100units/ml) SC SCH (10:00)
[2023-05-21] MEDS: ASPirin 81 mg TAB PO ONE (10:15)
[2023-05-21] MEDS: SODIUM CHLORIDE 0.9% 1,000 ML IV SCH (10:39)
[2023-05-21] MEDS: PANTOPRAZOLE 40 MG/10 ML VIAL INJ IV SCH (10:48)
[2023-05-21] MEDS: MONTELUKAST SODIUM 10 MG TAB PO SCH (10:48)
[2023-05-21] MEDS: METOCLOPRAMIDE HCL 10 MG TAB PO SCH (10:48)
[2023-05-21] MEDS: SERTRALINE HCL 50 MG TAB PO SCH (10:48)
[2023-05-21] MEDS: LISINOPRIL 5 MG TAB PO ONE (10:49)
[2023-05-21] MEDS: POTASSIUM EFFERVESENT TAB 25 MEQ PO ONE (10:49)
[2023-05-21] MEDS: INSULIN LANTUS (GLARGINE) 1 /0.01ml (100units/ml) SC SCH (10:50)
[2023-05-21 11:01] LABS: Chloride 106 mmol/L (98-107); Potassium 3.8 mmol/L (3.5-5.1); Sodium 139 mmol/L (136-145)
[2023-05-21 11:02] LABS: Anion Gap 7 (5-15); Carbon Dioxide 26 mmol/L (20-30)
[2023-05-21 11:03] LABS: Calcium 8.6 mg/dL (8.5-10.1)
[2023-05-21 11:07] LABS: Glucose 192 mg/dL (74-106)
[2023-05-21 11:08] LABS: BUN/Creatinine Ratio 17.1 (10.0-20.0); Blood Urea Nitrogen 13 mg/dL (9-23)
[2023-05-21] MEDS ORDERED: DEXTROSE (50%) 50ML SYRG IV PRN (13:00)
[2023-05-21] MEDS: HYDROmorphone HCL 2 MG/ML VL/or syr IV ONE (14:27)
[2023-05-21] MEDS: METOCLOPRAMIDE HCL 5MG/ml INJ 2ml VIAL IV SCH (14:28)
[2023-05-21] MEDS ORDERED: GLIP10TA9 PO (16:36)
[2023-05-21] MEDS ORDERED: INSU300I SC (16:38)
[2023-05-21] MEDS: ACCU-CHEK COMFORT CURVE STRIP VI SCH (17:08)
[2023-05-21] MEDS: InsuLIN REG 1unit/0.01ml Soln (100units/ml) SC SCH ×2 (17:29→21:54)
[2023-05-21 19:35] VITALS: PULSE 119; RESP 21; O2SAT 90
[2023-05-21 22:00] VITALS: BP 167/81; PULSE 110; RESP 22; TEMP 97.5; O2SAT 99
[2023-05-21 23:36] VITALS: PULSE 110; RESP 22; O2SAT 99
[2023-05-22] VITALS (7 sets, daily range): BP systolic 113–159; BP diastolic 70–110; PULSE 101–127; RESP 20–22; TEMP 98–99.1; O2SAT 95–99
[2023-05-22] MEDS: traMADol HCL 50 MG TAB PO PRN (00:28)
[2023-05-22] MEDS: hydrALAZINE HCL 20 MG/ML VL IV PRN (00:28)
[2023-05-22] MEDS: PROMETHAZINE HCL 25 MG/ML 1ML IM ONE (01:00)
[2023-05-22] MEDS: PROMETHAZINE HCL 25 MG/ML 1ML IV ONE (01:38)
[2023-05-22 06:00] LABS: Anion Gap 11 (5-15); Carbon Dioxide 22 mmol/L (20-30); Chloride 99 mmol/L (98-107); Potassium 3.5 mmol/L (3.5-5.1)
[2023-05-22 06:01] LABS: Calcium 8.8 mg/dL (8.5-10.1)
[2023-05-22 06:06] LABS: BUN/Creatinine Ratio 10.8 (10.0-20.0); Blood Urea Nitrogen 7 mg/dL (9-23); Glucose 229 mg/dL (74-106)
[2023-05-22 06:13] LABS: Basophils # (auto) 0.1 10 ^3/uL (0-0.2); Basophils % (auto) 0.8 % (0.0-2.0); Eosinophils # (auto) 0 10 ^3/uL (0-0.8); Eosinophils % (auto) 0.2 % (0.0-7.0); Hematocrit 43.5 % (36.0-46.0); Hemoglobin 14.1 g/dL (12.2-16.2); Lymphocytes # (auto) 3.2 10 ^3/uL (0.4-5.4); Lymphocytes % (auto) 25.7 % (10.0-50.0); Mean Corpuscular Hemoglobin 29.9 pg (28.0-32.0); Mean Corpuscular Hgb Conc. 32.4 g/dL (32.0-36.0); Mean Corpuscular Volume 92.3 fL (80.0-100.0); Monocytes # (auto) 0.9 10 ^3/uL (0-1.3); Monocytes % (auto) 6.8 % (0.0-12.0); Neutrophils # (auto) 8.3 10 ^3/uL (1.6-8.6); Neutrophils % (auto) 66.5 % (37.0-80.0); Nucleated Red Blood Cells % 0.1 %; Red Blood Cells 4.72 10^6/uL (4.0-5.20); Red Cell Distribution Width 13.5 % (11.8-14.3); White Blood Cell 12.5 10^3/uL (4.4-10.8)
[2023-05-22 06:18] LABS: Sodium 132 mmol/L (136-145)
[2023-05-22] MEDS ORDERED: PROMETHAZINE HCL 25 MG/ML 1ML IM ONE (09:00)
[2023-05-22] MEDS: PROMETHAZINE HCL 25 MG/ML 1ML IV PRN (09:26)
[2023-05-22] MEDS: PROMETHAZINE HCL 25 MG/ML 1ML ONE (09:26)
[2023-05-22] MEDS: ASPirin 81 mg TAB PO SCH (10:00)
[2023-05-22] MEDS: LISINOPRIL 5 MG TAB PO SCH (11:14)
[2023-05-22] MEDS: INSULIN LANTUS (GLARGINE) 1 /0.01ml (100units/ml) SC SCH (11:16)
[2023-05-23 05:00] VITALS: BP 157/81; PULSE 107; RESP 18; TEMP 98.5; O2SAT 96
[2023-05-23 05:07] LABS: Basophils # (auto) 0.1 10 ^3/uL (0-0.2); Basophils % (auto) 0.7 % (0.0-2.0); Eosinophils # (auto) 0 10 ^3/uL (0-0.8); Eosinophils % (auto) 0.3 % (0.0-7.0); Hematocrit 41.8 % (36.0-46.0); Hemoglobin 13.9 g/dL (12.2-16.2); Lymphocytes # (auto) 2.3 10 ^3/uL (0.4-5.4); Lymphocytes % (auto) 25.3 % (10.0-50.0); Mean Corpuscular Hemoglobin 29.9 pg (28.0-32.0); Mean Corpuscular Hgb Conc. 33.2 g/dL (32.0-36.0); Mean Corpuscular Volume 90.2 fL (80.0-100.0); Monocytes # (auto) 0.7 10 ^3/uL (0-1.3); Monocytes % (auto) 7.3 % (0.0-12.0); Neutrophils % (auto) 66.4 % (37.0-80.0); Nucleated Red Blood Cells % 0.1 %; Red Blood Cells 4.64 10^6/uL (4.0-5.20); Red Cell Distribution Width 13.6 % (11.8-14.3)
[2023-05-23 05:12] LABS: Anion Gap 9 (5-15); Carbon Dioxide 23 mmol/L (20-30); Chloride 102 mmol/L (98-107); Potassium 3.5 mmol/L (3.5-5.1); Sodium 134 mmol/L (136-145)
[2023-05-23 05:14] LABS: Calcium 8.4 mg/dL (8.7-10.4)
[2023-05-23 05:18] LABS: BUN/Creatinine Ratio 11.3 (10.0-20.0); Blood Urea Nitrogen 6 mg/dL (9-23); Glucose 212 mg/dL (74-106)
[2023-05-23 08:00] VITALS: PULSE 98; RESP 20; O2SAT 95
[2023-05-23 09:00] VITALS: BP 133/87; PULSE 104; RESP 17; TEMP 98.9; O2SAT 97
[2023-05-23] MEDS ORDERED: INSLANTI SC (11:40)
[2023-05-23] MEDS ORDERED: INSREGI SC (11:40)
[2023-05-23] MEDS ORDERED: LISI-275 PO (11:40)
[2023-05-23] MEDS ORDERED: INSU300I SC (12:02)
[2023-05-23] MEDS ORDERED: [UNRECOGNIZED DRUG - CODE] BC (12:02)
[2023-05-23] MEDS ORDERED: INSU-450 XX (12:04)
[2023-05-23 12:09] VITALS: BP 152/78
[2023-05-23 12:42] VITALS: BP 159/89; PULSE 104; RESP 16; TEMP 98; O2SAT 96
[2023-05-24] MEDS ORDERED: FLUC200T PO (17:32)
== END 2023-05-23 14:40 | disposition home or self-care (01) | DRG 48 ==
LOC: ER 11:57 → TELE 16:53 → TELE-WESTW 05-21 23:03 → WEST WING 05-22 14:44
PROVIDERS: ADMIT Internal Medicine; ATTEND Internal Medicine
DX: E11.43 Type 2 diabetes mellitus with diabetic autonomic (poly)neuropathy (principal); N17.0 Acute kidney failure with tubular necrosis; E11.10 Type 2 diabetes mellitus with ketoacidosis without coma; K31.84 Gastroparesis; I10 Essential (primary) hypertension; Z20.822 Contact with and (suspected) exposure to COVID-19; D72.829 Elevated white blood cell count, unspecified; Z83.3 Family history of diabetes mellitus; R65.10 Systemic inflammatory response syndrome (SIRS) of non-infectious origin without acute organ dysfunction
CPT/HCPCS: 36415; 36600; 74176; 80048; 80053; 80307; 81001; 82010; 82805; 82962; 83036; 83690; 83735; 83880; 83930; 84100; 84484; 85025; 87081; 87086; 87426; 93306; 96361; 96374; 96375; 99291; C9113; G0378; J1815; J2405

== ENCOUNTER 2023-07-02 14:38 | Emergency (ER) | payer MEDICAID ==
[~2023-07-02] VITALS: Ht 170.2 cm; Wt 93.6 kg
[~2023-07-02 14:38] MED LIST changes: -ATOR-47 PO; +ATOR20TA50 PO; +FLUC200T PO; +GLIP10TA9 PO; -GLIP5TAB12 PO; +INSREGI SC; +INSU-450 XX; +LISI-275 PO; -METF-490 PO; -METO-281 PO; +METO-517 PO; -METO5TAB67 PO; +[UNRECOGNIZED DRUG - CODE] BC
[2023-07-02] MEDS: PANTOPRAZOLE 40 MG/10 ML VIAL INJ IV ONE (15:15)
[2023-07-02] MEDS: MORPHINE SULFATE 4 MG/ML SYR/VIAL IV ONE (15:15)
[2023-07-02] MEDS: ONDANSETRON HCL 4 MG/2 ML VIAL IV ONE (15:15)
[2023-07-02 15:41] LABS: Basophils # (auto) 0.1 10 ^3/uL (0-0.2); Basophils % (auto) 0.6 % (0.0-2.0); Eosinophils # (auto) 0.1 10 ^3/uL (0-0.8); Eosinophils % (auto) 0.9 % (0.0-7.0); Hematocrit 47.2 % (36.0-46.0); Hemoglobin 15.9 g/dL (12.2-16.2); Lymphocytes # (auto) 3.6 10 ^3/uL (0.4-5.4); Lymphocytes % (auto) 26.5 % (10.0-50.0); Mean Corpuscular Hemoglobin 30.8 pg (28.0-32.0); Mean Corpuscular Hgb Conc. 33.6 g/dL (32.0-36.0); Mean Corpuscular Volume 91.8 fL (80.0-100.0); Monocytes # (auto) 0.7 10 ^3/uL (0-1.3); Monocytes % (auto) 5.3 % (0.0-12.0); Neutrophils % (auto) 66.7 % (37.0-80.0); Red Blood Cells 5.15 10^6/uL (4.0-5.20); Red Cell Distribution Width 14.6 % (11.8-14.3); White Blood Cell 13.5 10^3/uL (4.4-10.8)
[2023-07-02 16:00] LABS: Alanine Aminotransferase 35 U/L (7-40); Albumin 4.1 g/dL (3.2-4.8); Alkaline Phosphatase 103 U/L (46-116); Anion Gap 8 (5-15); Aspartate Aminotransferase 22 U/L (13-40); Bilirubin, Total 0.6 mg/dL (0.2-1.0); Calcium 10.4 mg/dL (8.7-10.4); Carbon Dioxide 30 mmol/L (20-30); Chloride 96 mmol/L (98-107); Glucose 224 mg/dL (74-106); Potassium 3.2 mmol/L (3.5-5.1); Sodium 134 mmol/L (136-145); Total Protein 7.4 g/dL (5.7-8.2)
[2023-07-02 16:07] LABS: BUN/Creatinine Ratio 6.9 (10.0-20.0); Blood Urea Nitrogen < 5 mg/dL (9-23)
[2023-07-02 18:55] VITALS: BP 133/73; PULSE 105; RESP 18; O2SAT 99
== END 2023-07-02 19:02 | disposition home or self-care (01) ==
LOC: EDBD 14:38 → ER 14:38
DX: R10.13 Epigastric pain (principal); E11.9 Type 2 diabetes mellitus without complications; E78.5 Hyperlipidemia, unspecified; I10 Essential (primary) hypertension; Z88.6 Allergy status to analgesic agent; Z90.49 Acquired absence of other specified parts of digestive tract
CPT/HCPCS: 36415; 74176; 80053; 85025; 93005

== ENCOUNTER 2023-07-10 08:44 | Emergency (ER) | payer MEDICAID ==
[~2023-07-10] VITALS: Ht 170.2 cm; Wt 91.5 kg
[~2023-07-10 08:44] MED LIST changes: -METO-517 PO; +METO10TA4 PO; -SUCR1TAB22 PO; +SUCR1TAB31 PO
[2023-07-10 11:00] VITALS: PULSE 123; RESP 21; O2SAT 97
[2023-07-10 11:34] LABS: Basophils # (auto) 0.1 10 ^3/uL (0-0.2); Basophils % (auto) 0.6 % (0.0-2.0); Eosinophils # (auto) 0.1 10 ^3/uL (0-0.8); Eosinophils % (auto) 0.5 % (0.0-7.0); Hematocrit 46.5 % (36.0-46.0); Hemoglobin 15.4 g/dL (12.2-16.2); Lymphocytes # (auto) 2.9 10 ^3/uL (0.4-5.4); Lymphocytes % (auto) 21.6 % (10.0-50.0); Mean Corpuscular Hemoglobin 30.9 pg (28.0-32.0); Mean Corpuscular Volume 93.4 fL (80.0-100.0); Monocytes # (auto) 0.8 10 ^3/uL (0-1.3); Monocytes % (auto) 5.7 % (0.0-12.0); Neutrophils # (auto) 9.6 10 ^3/uL (1.6-8.6); Neutrophils % (auto) 71.6 % (37.0-80.0); Nucleated Red Blood Cells % 0.2 %; Red Blood Cells 4.98 10^6/uL (4.0-5.20); Red Cell Distribution Width 14.5 % (11.8-14.3); White Blood Cell 13.4 10^3/uL (4.4-10.8)
[2023-07-10 11:47] LABS: Alanine Aminotransferase 34 U/L (7-40); Albumin 4.2 g/dL (3.2-4.8); Alkaline Phosphatase 117 U/L (46-116); Anion Gap 5 (5-15); Aspartate Aminotransferase 17 U/L (13-40); BUN/Creatinine Ratio 14.3 (10.0-20.0); Blood Urea Nitrogen 15 mg/dL (9-23); Calcium 10.1 mg/dL (8.7-10.4); Carbon Dioxide 29 mmol/L (20-30); Chloride 92 mmol/L (98-107); Lipase 34 U/L (12-53); Magnesium 2.1 mg/dL (1.6-2.6); Potassium 5.2 mmol/L (3.5-5.1); Sodium 126 mmol/L (136-145)
[2023-07-10 11:48] LABS: Bilirubin, Total 0.9 mg/dL (0.2-1.0); Total Protein 7.8 g/dL (5.7-8.2)
[2023-07-10 11:51] LABS: Glucose 491 mg/dL (74-106)
[2023-07-10] MEDS: HYDROmorphone HCL 2 MG/ML VL/or syr IM ONE (12:15)
[2023-07-10] MEDS: MORPHINE SULFATE 4 MG/ML SYR/VIAL IV ONE (13:21)
[2023-07-10] MEDS: SODIUM CHLORIDE 0.9% 1,000 ML IVB ONE (13:24)
[2023-07-10] MEDS: ONDANSETRON HCL 4 MG/2 ML VIAL IV ONE (13:24)
[2023-07-10 14:02] LABS: Urine Bacteria MOD /hpf (None Seen); Urine Blood Negative /uL (Negative); Urine Clarity HAZY (Clear); Urine Color Yellow (Yellow); Urine Mucus FEW (None Seen); Urine Protein, UAD 2+ (Negative); Urine Specific Gravity 1.044 (1.001-1.035); Urine Urobilinogen Normal (Negative); Urine WBC 12 /hpf (0 - 5); Urine pH 5.5 (5.0-8.0)
[2023-07-10] MEDS: InsuLIN REG 1unit/0.01ml Soln (100units/ml) IV ONE ×2 (14:02→15:55)
[2023-07-10] MEDS: HYDROmorphone HCL 2 MG/ML VL/or syr IV ONE (15:35)
[2023-07-10] MEDS ORDERED: HYDR-4902 PO (18:44)
[2023-07-10] MEDS ORDERED: BACDST PO (18:44)
[2023-07-10 19:02] VITALS: BP 133/94; PULSE 106; RESP 13; O2SAT 99
== END 2023-07-10 19:28 | disposition home or self-care (01) ==
LOC: ER 08:44
DX: E11.65 Type 2 diabetes mellitus with hyperglycemia (principal); K31.84 Gastroparesis; I10 Essential (primary) hypertension; R82.71 Bacteriuria; N30.20 Other chronic cystitis without hematuria; D35.01 Benign neoplasm of right adrenal gland; K76.0 Fatty (change of) liver, not elsewhere classified; E78.5 Hyperlipidemia, unspecified; Z90.49 Acquired absence of other specified parts of digestive tract
CPT/HCPCS: 36415; 71045; 74176; 80053; 81001; 82962; 83690; 83735; 85025; 96361; 96372; 96374; 96375; 96376; 99285; J1170; J1815; J2405; J7030; 93005

== ENCOUNTER 2024-09-22 17:04 | Inpatient (IN) | payer MEDICAID ==
[~2024-09-22] VITALS: Ht 170.2 cm; Wt 85.8 kg
[~2024-09-22 17:04] MED LIST changes: +BACDST PO; +HYDR-4902 PO
--- NOTE | 2024-09-22 17:55 | ED.PDOC ---
GI ASSESSMENT HPI Comments 49 y/o F, with PMHx of gastroparesis, HTN, HLD, and DM presents to the ED for CC of abdominal pain. Patient states, she has been experiencing diffuse abdominal pain with associated symptoms of nausea and vomiting [id number]. Patient reports, new symptoms of dizziness and headache onset, today (09/22/24). Patient endorses, being seen at [facility] and being relayed to the ED d/t hyperglycemia. Upon arrival to the ED, patient's blood sugar read at 484 x2. Patient relays, being non-complainant with medications for years using only homeopathic remedies. Patient denies frequency, urgency, increased thirst, fever, or chills. No other symptoms or modifying factors present at this time. Chief Complaint: Abdominal Pain Time Seen by MD: 17:40 Primary Care Provider: TIAN Reviewed Notes: Nurses Notes, Medications, Allergies Allergies: Coded Allergies: Morphine (Verified Allergy, Unknown, 05/28/19) Peanut Oil (Verified Allergy, Unknown, 09/22/24) Home Meds Active Scripts Hydrocodone-Acetaminophen (Hydrocodone Bitartrate/AC 5-325 mg) 1 Tab Tab, 1 TAB PO BID for 10 Days, #20 TAB Prov:LEATHA KABA MD 07/10/23 Sulfamethoxazole W/Trimethopri (Bactrim Ds Tablet) 1 Tab Tb, 1 TAB PO BID for 10 Days, #20 TAB Prov:LEATHA KABA MD 07/10/23 Fluconazole (Diflucan) 200 Mg Tab, 1 TAB PO DAILY, #7 TAB Prov:SHAILA GATICA MD 05/24/23 Insulin Pen Needle (FIFTY50 PEN NEEDLES 31G X) 31GX3/16 Mis, 16 XX BID PRN, #100 5 Refills USE PER LANTUS USE INSTRUCTION Prov:PHILL FISCHER 05/23/23 Insulin Syringe/Needle U-100 (ADVOCATE INSULIN SYRINGE/) 1 Ml/31 G Mis, ML BC 5XD PRN, #60 5 Refills ACHS BEFORE MEAL AND NIGHT TIME Prov:PHILL FISCHER RESIDENT 05/23/23 Insulin Glargine (Toujeo Max Solostar) 300 Unit/Ml Inj, 40 UNIT SC HS for 20 Days, #5 5 Refills Administer 80 units under the skin every night at bedtime Prov:PHILL FISCHER RESIDENT 05/23/23 Insulin Regular (Human) (Novolin R) 100 Unit/Ml Inj, 0 UNITS SC HS for 20 Days, #5 INJ 5 Refills Prov:PHILL FISCHER RESIDENT 05/23/23 Lisinopril (Lisinopril) 5 Mg Tab, 5 MG PO DAILY for 30 Days, #30 TAB Prov:PHILL FISCHER RESIDENT 05/23/23 Ondansetron Odt 4MG Tab (ZOFRAN PO) 4 Mg Tb, 4 MG PO QID PRN, #30 TAB ODT TAB-DISSOLVE IN MOUTH, THEN SWALLOW Prov:LAZARUS CARMONA MD 05/11/23 Sucralfate (CARAFATE) 1 Gm Tab, 1 GM PO ACHS for 30 Days, #120 TAB Prov:EMA MORRISON MD 10/06/21 Pantoprazole Sodium Sesquihydr (Protonix) 40 Mg Tab, 40 MG PO BID for 30 Days, #60 TAB Prov:EMA MORRISON MD 10/06/21 Reported Medications Glipizide (Glipizide) 10 Mg Tab, 1 TAB PO DAILY 05/21/23 Atorvastatin Calcium (ATORVASTATIN CALCIUM) 20 Mg Tab, 1 TAB PO HS 05/20/23 Metoclopramide HCl (Metoclopramide Hydrochlor) 10 Mg Tab, 1 PO DAILY 05/20/23 Semaglutide (Rybelsus) 14 Mg Tab, 14 MG PO HS, TAB 10/04/21 Cholecalciferol (VITAMIN D3) 2,000 Unit Tab, 1 TAB PO DAILY, #30 TAB 5 Refills 10/04/21 Sertraline Hcl (Sertraline Hcl) 25 Mg Tab, 1 TAB PO DAILY, #30 TAB 2 Refills 10/04/21 Insulin Glargine (Toujeo Max Solostar) 300 Unit/Ml Inj, 80 UNIT SC HS, INJ 10/04/21 Polyethylene Glycol (MIRALAX 17GM PWD) 17 Gm Pw, 17 GRAMS PO DAILY, #527 GRAMS 10/04/21 Aspirin (Aspir-Low) 81 Mg Tab, 81 MG PO HS, MG 10/04/21 Montelukast Sodium (MONTELUKAST SODIUM) 10 Mg Tab, 1 TAB PO DAILY, #30 TAB 5 Refills 10/04/21 Sitagliptin Phosphate (Januvia) 100 Mg Tab, 1 TAB PO DAILY, #30 TAB 5 Refills 10/04/21 Furosemide (Furosemide) 40 Mg Tab, 1 TAB PO DAILY 10/04/21 Pioglitazone Hydrochloride (PIOGLITAZONE HCL) 30 Mg Tab, 1 TAB PO DAILY 10/04/21 Information Source: Patient Mode of Arrival: Wheelchair Timing: Weeks Duration: Since onset Prehospital treatment: None Quality: None Vomitus: Watery Stool: Normal Severity: Moderate Recent: None Recent Hx of: None Pain Location: Diffuse Associated sign and symptoms: Nausea, Vomiting, Abdominal Pain Past Medical History PAST MEDICAL HISTORY: DM, High Lipids, HTN Surgical History: Cholecystectomy [employer]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 Family History Family History: Family hx of DM Family History (Other): Gastroparesis Social History Smoker: Non-Smoker Alcohol: Denies ETOH Use Drugs: Denies Drug Use Lives In: Home Constitutional: denies: chills, diaphoresis, fatigue, fever, malaise, sweats, weakness, others EENTM: denies: blurred vision, double vision, ear bleeding, ear discharge, ear drainage, ear pain, ear ringing, eye pain, eye redness, hearing loss, mouth pain, mouth swelling, nasal discharge, nose bleeding, nose congestion, nose pain, photophobia, tearing, throat pain, throat swelling, voice changes, others Respiratory: denies: cough, hemoptysis, orthopnea, SOB at rest, shortness of breath, SOB with excertion, stridor, wheezing, others Cardiovascular: denies: chest pain, dizzy spells, diaphoresis, Dyspnea on exertion, edema, irregular heart beat, left arm pain, lightheadedness, palpitations, PND, syncope, others Gastrointestinal: reports: abdominal pain, nausea, vomiting Genitourinary: denies: abnormal vagina bleeding, burning, dyspareunia, dysuria, flank pain, frequency, hematuria, incontinence, pain, , vagina discharge, urgency, others Neurological: reports: dizziness, headache; denies: fainting, left sided numbness, left sided weakness, numbness, paresthesia, pre-existing deficit, right sided numbness, right sided weakness, seizure, speech problems, tingling, tremors, weakness, others Musculoskeletal: denies: back pain, gout, joint pain, joint swelling, muscle pain, muscle stiffness, neck pain, others Integumetry: denies: bruises, change in color, change in hair/nails, dryness, laceration, lesions, lumps, rash, wounds, others Allergic/Immunocompromised: denies: Difficulty Healing, Frequent Infections, Hives, Itching, others Hematologic/Lymphatic: denies: anemia, blood clots, easy bleeding, easy bruising, swollen glands, others Endocrine: denies: excessive hunger, excessive sweating, excessive thirst, excessive urination, flushing, intolerance to cold, intolerance to heat, unexplained weight gain, unexplained weight loss, others Psychiatric: denies: anxiety, bipolar disorder, depression, hopeless, panic disorder, schizophrenia, sleepless, suicidal, others All Other Systems: Reviewed and Negative Physical Exam General Appearance: No Apparent Distress, Normal HEENT: Normal ENT Inspection, Pharynx Normal, TMs Normal Neck: Full Range of Motion, Non-Tender, Normal, Normal Inspection Respiratory: Chest Non-Tender, Lungs Clear, No Accessory Muscle Use, No Respiratory Distress, Normal Breath Sounds Cardiovascular: No Edema, No JVD, No Murmur, No Gallop, Normal Peripheral Pulses, Tachycardia Breast Exam: Deferred Gastrointestinal: Diffuse (tenderness), No Organomegaly, No Pulsatile Mass, Normal Bowel Sounds Genitalia: Deferred Pelvic: Deferred Rectal: Deferred Extremities: No calf tenderness, Normal capillary refill, Normal inspection, Normal range of motion, Non-tender, No pedal edema Musculoskeletal : Apperance: Normal Neurologic: Alert, plater barrel II-XII nml as Tested, No Motor Deficits, Normal Affect, Normal Mood, No Sensory Deficits Cerebellar Function: Normal Reflexes: Normal Skin: Dry, Normal Color, Warm Lymphatic: No Adenopathy Was a procedure done? Was a procedure done?: No GI differential Dx Differential Diagnosis: Constipation, Diverticular disease, Gastritis/PUD, Gastroenteritis, Inflammatory BD, Pancreatitis, Electrolyte Imbalance, Food Poisoning, Bacterial, Viral X-Ray, Labs, Meds, VS Vital Signs Date Time Temp Pulse Resp B/P (MAP) Pulse Ox O2 Delivery O2 Flow Rate FiO2 09/22/24 21:14 98 20 120/73 09/22/24 20:56 98.1 117 20 144/99 (114) 97 98.1 09/22/24 20:53 122 20 97 Room Air* 0 21 09/22/24 19:45 122 14 144/99 09/22/24 18:55 Room Air* 0 21 09/22/24 18:55 98.2 117 18 138/99 (112) 97 98.2 09/22/24 17:31 118 09/22/24 17:26 98.3 121 20 121/85 (97) 96 98.3 Lab Test 09/22/24 18:49 09/22/24 17:41 Range/Units Sodium Level 132 L 133 L 136-145 mmol/L Potassium Level 4.7 4.5 3.5-5.1 mmol/L Chloride Level 94 L 94 L 98-107 mmol/L Carbon Dioxide Level 24 25 20-31 mmol/L Anion Gap 14 14 5-15 Blood Urea Nitrogen 21 22 9-23 mg/dL Creatinine 1.04 H 1.02 0.550-1.02 mg/dL Glomerular Filtration Rate Calc 65 67 >90 mL/min BUN/Creatinine Ratio 20.2 H 21.6 H 10.0-20.0 Serum Glucose 489 *H 477 *H 74-106 mg/dL Calcium Level 11.0 H 11.1 H 8.7-10.4 mg/dL Total Bilirubin 0.7 0.2-1.0 mg/dL Aspartate Amino Transferase (AST) 13 13-40 U/L Alanine Aminotransferase (ALT) 23 7-40 U/L Alkaline Phosphatase 111 46-116 U/L Total Protein 7.7 5.7-8.2 g/dL Albumin 4.3 3.2-4.8 g/dL White Blood Count 10.8 4.4-10.8 10^3/uL Red Blood Count 5.13 4.0-5.20 10^6/uL Hemoglobin 16.1 12.2-16.2 g/dL Hematocrit 47.2 H 36.0-46.0 % Mean Corpuscular Volume 92.0 80.0-100.0 fL Mean Corpuscular Hemoglobin 31.3 28.0-32.0 pg Mean Corpuscular Hemoglobin Concent 34.1 32.0-36.0 g/dL Red Cell Distribution Width 12.5 11.8-14.3 % Platelet Count 282 140-450 10^3/uL Mean Platelet Volume 8.3 6.9-10.8 fL Neutrophils (%) (Auto) 62.1 37.0-80.0 % Lymphocytes (%) (Auto) 29.4 10.0-50.0 % Monocytes (%) (Auto) 6.4 0.0-12.0 % Eosinophils (%) (Auto) 1.3 0.0-7.0 % Basophils (%) (Auto) 0.8 0.0-2.0 % Neutrophils # (Auto) 6.7 1.6-8.6 10 ^3/uL Lymphocytes # (Auto) 3.2 0.4-5.4 10 ^3/uL Monocytes # (Auto) 0.7 0-1.3 10 ^3/uL Eosinophils # (Auto) 0.1 0-0.8 10 ^3/uL Basophils # (Auto) 0.1 0-0.2 10 ^3/uL Nucleated Red Blood Cells 0.0 % Lipase 40 12-53 U/L Current Medications Medications (Trade) Dose Ordered Sig/Roel Route Start Time Stop Time Status Last Admin Hydromorphone HCl (Dilaudid Injection) 0.5 mg ONCE ONCE IV 09/22/24 17:45 09/22/24 17:46 DC 09/22/24 19:45 Sodium Chloride 1,000 ml @ 1,000 mls/hr Q1H ONCE IV 09/22/24 20:00 09/22/24 20:59 DC 09/22/24 20:28 Insulin Human Regular (InsuLIN R) 10 units ONCE ONCE IV 09/22/24 20:00 09/22/24 20:01 DC 09/22/24 20:33 X-Ray, Labs, Meds, VS Comment Imaging: X-rays and CT scans were reviewed and interpreted by this provider, imaging shows no fractures and no pathological disease. Pending radiology review. Laboratory: Labs reviewed and interpreted by this provider. Patient has significantly high blood sugar but no signs of DKA Patient will be admitted for diabetic type 2 hyperglycemia uncontrolled Patient will be admitted for a retractable abdominal pain Patient has prior medical visits reviewed. Med reconciliation performed Vital signs reviewed Time of 1ST Reevaluation: 18:10 Reevaluation 1ST: Unchanged Patient Education/Counseling: Diagnosis, Treatment Family Education/Counseling: No Family Present Departure 1 Departure Time of Disposition: 21:46 Impression: Primary Impression: Hyperglycemia Additional Impressions: Intractable vomiting with nausea Epigastric pain Gastroparesis Disposition: ADMITTED INPATIENT Condition: Stable Critical Care Note Critical Care Time?: No Stability Stability form required: No Heart Score Heart Score: Heart Score Response (Comments) Value History N/A 0 EKG N/A 0 Age N/A 0 Risk Factors N/A 0 Troponin N/A 0 Total 0 I personally scribed for EILEEN DE LEÓN ([email or web address]) on 09/22/24 at 17:55. Electronically submitted by Jolene Rudd ([email or web address]). EILEEN DE LEÓN Sep 22, 2024 17:55
[2024-09-22 18:03] LABS: Basophils # (auto) 0.1 10 ^3/uL (0-0.2); Basophils % (auto) 0.8 % (0.0-2.0); Eosinophils # (auto) 0.1 10 ^3/uL (0-0.8); Eosinophils % (auto) 1.3 % (0.0-7.0); Hematocrit 47.2 % (36.0-46.0); Hemoglobin 16.1 g/dL (12.2-16.2); Lymphocytes # (auto) 3.2 10 ^3/uL (0.4-5.4); Lymphocytes % (auto) 29.4 % (10.0-50.0); Mean Corpuscular Hemoglobin 31.3 pg (28.0-32.0); Mean Corpuscular Hgb Conc. 34.1 g/dL (32.0-36.0); Monocytes # (auto) 0.7 10 ^3/uL (0-1.3); Monocytes % (auto) 6.4 % (0.0-12.0); Neutrophils # (auto) 6.7 10 ^3/uL (1.6-8.6); Neutrophils % (auto) 62.1 % (37.0-80.0); Platelet Count (auto) 282 10^3/uL (140-450); Red Blood Cells 5.13 10^6/uL (4.0-5.20); Red Cell Distribution Width 12.5 % (11.8-14.3); White Blood Cell 10.8 10^3/uL (4.4-10.8)
[2024-09-22 18:11] LABS: Potassium 4.5 mmol/L (3.5-5.1)
[2024-09-22 18:12] LABS: Anion Gap 14 (5-15); Carbon Dioxide 25 mmol/L (20-31)
[2024-09-22 18:17] LABS: BUN/Creatinine Ratio 21.6 (10.0-20.0); Blood Urea Nitrogen 22 mg/dL (9-23)
[2024-09-22 18:21] LABS: Calcium 11.1 mg/dL (8.7-10.4); Chloride 94 mmol/L (98-107); Sodium 133 mmol/L (136-145)
[2024-09-22 18:22] LABS: Glucose 477 mg/dL (74-106)
[2024-09-22 19:41] LABS: Alanine Aminotransferase 23 U/L (7-40); Albumin 4.3 g/dL (3.2-4.8); Alkaline Phosphatase 111 U/L (46-116); Anion Gap 14 (5-15); BUN/Creatinine Ratio 20.2 (10.0-20.0); Bilirubin, Total 0.7 mg/dL (0.2-1.0); Blood Urea Nitrogen 21 mg/dL (9-23); Carbon Dioxide 24 mmol/L (20-31); Potassium 4.7 mmol/L (3.5-5.1); Total Protein 7.7 g/dL (5.7-8.2)
[2024-09-22 19:43] LABS: Lipase 40 U/L (12-53)
[2024-09-22 19:45] LABS: Aspartate Aminotransferase 13 U/L (13-40); Chloride 94 mmol/L (98-107); Sodium 132 mmol/L (136-145)
[2024-09-22] MEDS: HYDROmorphone HCL 2 MG/ML VL/or syr IV ONE ×2 (19:45→22:15)
--- NOTE | 2024-09-22 19:46 | DVH ---
Indication: abd pain Technique: CT axial images of the abdomen and pelvis are obtained without contrast. Coronal and sagit trey reformats were obtained. Radiation Dose Information: CTDI volume is 16.51 mGy. Dose-length product is 918.98 mGy*cm Comparison: CT CT AB PEL WO CON-NO ORAL OR IV on DOS: 07/10/23, FINDINGS: There is limited interpretation of the abdomen and pelvis without administration of intravenous contr ast. The lung bases demonstrate no pleural effusion. 3 mm left lower lobe subpleural nodule. Small perica rdial effusion. Coronary artery calcification disease. Adrenal glands, spleen unremarkable in shape. Fatty infiltration pancreas. Cholecystectomy. Liver u nremarkable in shape. No hydronephrosis, nephrolithiasis. Stomach partially distended. Small bowel loops are normal in caliber. Moderate volume stool in the colon. Normal appendix. Abdominal aorta normal in caliber. Atherosclerotic disease. Bladder partially distended. No free pe lvic fluid. No inguinal lymphadenopathy. Mild thoracolumbar degenerative disc disease. IMPRESSION: 1. 3 mm left lower lobe subpleural nodule, unchanged. 2. Small pericardial effusion. Coronary artery calcification. 3. Status Post-cholecystectomy.
[2024-09-22 19:47] LABS: Glucose 489 mg/dL (74-106)
[2024-09-22] MEDS: SODIUM CHLORIDE 0.9% 1,000 ML IV ONE (20:28)
[2024-09-22] MEDS: InsuLIN REG 1unit/0.01ml Soln (100units/ml) IV ONE (20:33)
[2024-09-22 20:53] VITALS: PULSE 122; RESP 20; O2SAT 97
[2024-09-22] MEDS ORDERED: MORPHINE SULFATE INJ 2 MG/ml SYRG IV PRN ×3 (23:00→23:15)
[2024-09-22] MEDS ORDERED: DOCUSATE SOD 100 MG CAP PO PRN (23:00)
[2024-09-22] MEDS ORDERED: ONDANSETRON HCL 4 MG/2 ML VIAL IV PRN (23:00)
[2024-09-22] MEDS ORDERED: NITROGLYCERIN 0.4 MG SL TAB SL PRN (23:00)
[2024-09-22] MEDS ORDERED: ACETAMINOPHEN 325 MG TAB PO PRN (23:00)
[2024-09-22] MEDS ORDERED: DEXTROSE (50%) 50ML SYRG IV PRN (23:15)
[2024-09-22 23:32] LABS: Blood Alcohol 3.3 mg/dL (<10); Magnesium 2.2 mg/dL (1.6-2.6)
[2024-09-22 23:33] LABS: CRP High Sensitivity 0.69 mg/dL (<1.0)
--- NOTE | 2024-09-22 23:39 | DVH ---
CHEST RADIOGRAPH Indication: Rule out thoracic disease or infection Technique: Single frontal view of the chest was obtained COMPARISON: XY CHEST PORTABLE on DOS: 07/10/23, CHEST PORTABLE on DOS: 05/28/19 FINDINGS: Lines and Tubes: None Lungs: Clear Pleura: No effusion. No pneumothorax. Cardiomediastinal contours: Unremarkable Bones: Unremarkable IMPRESSION: 1. No acute disease.
[2024-09-23] MEDS: ACCU-CHEK COMFORT CURVE STRIP VI SCH ×2 (00:09→16:51)
[2024-09-23] MEDS: ATORVASTATIN 20 MG TAB PO SCH ×2 (00:16→21:43)
[2024-09-23] MEDS: PANTOPRAZOLE 40 MG/10 ML VIAL INJ IV SCH ×2 (00:16→10:08)
[2024-09-23] MEDS: InsuLIN REG 1unit/0.01ml Soln (100units/ml) SC SCH ×2 (00:18→16:55)
[2024-09-23] MEDS: SODIUM CHLORIDE 0.9% 1,000 ML IV SCH (00:46)
[2024-09-23 02:09] LABS: Erythrocyte Sedimentation Rate 64 mm/hr (0-20)
[2024-09-23 04:10] LABS: Urine Bacteria MOD /hpf (None Seen); Urine Blood Negative /uL (Negative); Urine Clarity Turbid (Clear); Urine Color Yellow (Yellow); Urine Hyaline Cast FEW /lpf (0 - 2); Urine Protein, UAD 1+ (Negative); Urine Specific Gravity 1.038 (1.001-1.035); Urine Squamous Epithelial Cell MOD /hpf (<5); Urine Urobilinogen Normal (Negative); Urine WBC 14 /HPF (0-5); Urine pH 5.5 (5.0-9.0)
[2024-09-23 04:30] LABS: Opiate Scree,Urine Neg (NEGATIVE)
[2024-09-23 04:31] LABS: Amphetamine Screen, Urine Neg (NEGATIVE); Barbiturate Scree,Urine Neg (NEGATIVE); Benzodiazephine Screen, Urine Neg (NEGATIVE); Cannabinoid Screen, Urine Neg (NEGATIVE); Cocaine Screen, Urine Neg (NEGATIVE); Phencyclidine Screen, Urine Neg (NEGATIVE)
[2024-09-23 05:38] LABS: Basophils # (auto) 0.1 10 ^3/uL (0-0.2); Basophils % (auto) 0.5 % (0.0-2.0); Eosinophils # (auto) 0.1 10 ^3/uL (0-0.8); Hematocrit 44.8 % (36.0-46.0); Hemoglobin 15.3 g/dL (12.2-16.2); Lymphocytes # (auto) 2.7 10 ^3/uL (0.4-5.4); Lymphocytes % (auto) 24.9 % (10.0-50.0); Mean Corpuscular Hemoglobin 31.4 pg (28.0-32.0); Mean Corpuscular Volume 92.3 fL (80.0-100.0); Monocytes # (auto) 0.8 10 ^3/uL (0-1.3); Monocytes % (auto) 7.2 % (0.0-12.0); Neutrophils # (auto) 7.2 10 ^3/uL (1.6-8.6); Neutrophils % (auto) 66.4 % (37.0-80.0); Nucleated Red Blood Cells % 0.1 %; Platelet Count (auto) 227 10^3/uL (140-450); Red Blood Cells 4.86 10^6/uL (4.0-5.20); Red Cell Distribution Width 12.8 % (11.8-14.3); White Blood Cell 10.9 10^3/uL (4.4-10.8)
[2024-09-23 05:59] LABS: Alanine Aminotransferase 25 U/L (7-40); Albumin 3.9 g/dL (3.2-4.8); Alkaline Phosphatase 109 U/L (46-116); Anion Gap 11 (5-15); Aspartate Aminotransferase 19 U/L (13-40); BUN/Creatinine Ratio 23.4 (10.0-20.0); Blood Urea Nitrogen 18 mg/dL (9-23); Carbon Dioxide 24 mmol/L (20-31); Chloride 103 mmol/L (98-107); Sodium 138 mmol/L (136-145); Total Protein 7.1 g/dL (5.7-8.2)
[2024-09-23 06:00] LABS: Bilirubin, Total 0.6 mg/dL (0.2-1.0)
--- NOTE | 2024-09-23 06:02 | DVHHPRES ---
History of Present Illness Resident Creating Document: NINA REYNOLDS RESIDENT History of Present Illness Ms. Hand, a 49-year-old female with a history of gastroparesis, hypertension, hyperlipidemia, obesity, diabetes mellitus, seasonal allergies, cholecystectomy, and chronic medical noncompliance, presents to the ED via wheelchair with a two- week history of diffuse, moderate abdominal pain accompanied by nausea and watery vomiting, without prehospital treatment, recent illness, stool changes, or identifiable triggers. On the day of presentation (09/22/24), she developed new symptoms of dizziness and headache. She was evaluated at [facility] and referred to the ED due to hyperglycemia, with blood glucose readings of 400s on two occasions. The patient admits to long-term non-compliance with prescribed medications, relying instead on homeopathic remedies. She denies urinary symptoms, polydipsia, fever, or chills. Her primary care provider is Dr. Javier. Past Medical History gastroparesis, hypertension, hyperlipidemia, obesity, diabetes mellitus, seasonal allergies, and chronic medical noncompliance Past Surgical History Cholecystectomy. No Pertinent OBGYN History Family History: DM Family History non contributory to admission Smoke: No ALCOHOL: none Drugs: None Lives: with Family (with mother ) Domestic Violence: Neg Review of Systems Constitutional: Yes: Malaise; No: Fever, Chills, Sweats, Weakness, Other Eyes: No: Pain, Vision change, Conjunctivae inflammation, Eyelid inflammation, Other, Redness ENT: No: Ear pain, Ear discharge, Nose pain, Nose discharge, Nose congestion, Mouth pain, Mouth swelling, Throat pain, Throat swelling, Other Respiratory: No: Cough, Dry, Shortness of breath, SOB with excertion, Wheezing, Hemoptysis, Pleuritic Pain, Sputum, Wheezing, Other Cardiovascular: Chest Pain; No: Palpitations, Orthopnea, Paroxysmal Noc. Dyspnea, Edema, Lt Headedness, Other Gastrointestinal: Nausea, Vomiting (watery, nonbloody), Abdominal Pain, Diarrhea; No: Constipation, Melena, Hematochezia, Other Genitourinary: No Dysuria; Frequency; No Incontinence, No Hematuria, No Retention, No Other Musculoskeletal: No: other, neck pain, shoulder pain, arm pain, back pain, hand pain, leg pain, foot pain Skin: No: Rash, Lesions, Jaundice, Bruising, Other Neurological: No: Weakness, Numbness, Incoordination, Change in speech, Confusion, Seizures, Other Allergies: Coded Allergies: Morphine (Verified Allergy, Unknown, 05/28/19) Peanut Oil (Verified Allergy, Unknown, 09/22/24) Medications Current Medications Medications Dose Ordered Sig/Roel Route Start Time Stop Time Status Last Admin Dose Admin Sodium Chloride 1,000 ml @ 120 mls/hr Q8H20M IV 09/22/24 23:00 09/23/24 00:46 120 MLS/HR Docusate Sodium 100 mg BIDPRN PRN PO 09/22/24 23:00 Enoxaparin Sodium 40 mg DAILY SC 09/23/24 10:00 Acetaminophen 650 mg Q6HP PRN PO 09/22/24 23:00 Nitroglycerin 0.4 mg Q5MINP PRN SL 09/22/24 23:00 Pantoprazole Sodium 40 mg DAILY IV 09/22/24 23:00 09/23/24 00:16 40 MG Diagnostic Test (Pha) 1 strip Q6HR 09/23/24 00:00 09/23/24 00:09 1 STRIP Insulin Human Regular Q6HR SC 09/23/24 00:00 09/23/24 00:18 8 UNITS Dextrose 50 ml UD PRN IV 09/22/24 23:15 Ondansetron HCl 4 mg Q6HPRN PRN IV 09/22/24 23:15 Atorvastatin Calcium 20 mg HS PO 09/22/24 23:15 09/23/24 00:16 20 MG Hydromorphone HCl 0.5 mg Q4HPRN PRN IV 09/23/24 00:00 Ceftriaxone Sodium 50 ml @ 100 mls/hr DAILY@LUNCH IV 09/23/24 12:00 UNV Exam Vital Signs Vital Signs Date Time Temp Pulse Resp B/P (MAP) Pulse Ox O2 Delivery O2 Flow Rate FiO2 09/23/24 03:00 109 20 100/67 (78) 97 09/22/24 20:56 98.1 98.1 09/22/24 20:53 Room Air* 0 21 General Appearance: Alert, Oriented X3, Cooperative, moderate distress (actively nauseus) HEENT: Atraumatic, PERRLA, EOMI, Other (dry mucosa) Respiratory: Clear to auscultation, Normal air movement Cardiovascular: Regular rate, Normal S1, Normal S2, No murmurs, Gallops, Rubs, Other (no reproducible pain on chest intercostally or parasternally ) Abdominal: Soft, No hepatospenomegaly, No masses, Other (epigastric tenderness, hyperdynamic bowel sound. ) Extremities: No clubbing, No cyanosis, No edema, Normal pulses, No tenderness/swelling, Other Skin: No rashes, No breakdown, No significant lesion Neuro: Normal speech, Normal tone, Other (deferred ) Psych/Mental Status: Mental status NL, Mood NL, Other Labs/Xrays Labs Test 09/23/24 05:13 09/23/24 03:30 09/23/24 00:07 09/22/24 23:28 Range/Units White Blood Count 10.9 H 4.4-10.8 10^3/uL Red Blood Count 4.86 4.0-5.20 10^6/uL Hemoglobin 15.3 12.2-16.2 g/dL Hematocrit 44.8 36.0-46.0 % Mean Corpuscular Volume 92.3 80.0-100.0 fL Mean Corpuscular Hemoglobin 31.4 28.0-32.0 pg Mean Corpuscular Hemoglobin Concent 34.0 32.0-36.0 g/dL Red Cell Distribution Width 12.8 11.8-14.3 % Platelet Count 227 140-450 10^3/uL Mean Platelet Volume 7.8 6.9-10.8 fL Neutrophils (%) (Auto) 66.4 37.0-80.0 % Lymphocytes (%) (Auto) 24.9 10.0-50.0 % Monocytes (%) (Auto) 7.2 0.0-12.0 % Eosinophils (%) (Auto) 1.0 0.0-7.0 % Basophils (%) (Auto) 0.5 0.0-2.0 % Neutrophils # (Auto) 7.2 1.6-8.6 10 ^3/uL Lymphocytes # (Auto) 2.7 0.4-5.4 10 ^3/uL Monocytes # (Auto) 0.8 0-1.3 10 ^3/uL Eosinophils # (Auto) 0.1 0-0.8 10 ^3/uL Basophils # (Auto) 0.1 0-0.2 10 ^3/uL Nucleated Red Blood Cells 0.1 % Urine Color Yellow Yellow Urine Clarity Turbid H Clear Urine pH 5.5 5.0-9.0 Urine Specific [place] 1.038 H 1.001-1.035 Urine Protein 1+ H Negative Urine Ketones 2+ H Negative Urine Blood Negative Negative /uL Urine Nitrite Negative Negative Urine Bilirubin Negative Negative Urine Urobilinogen Normal Negative mg/dL Urine Leukocyte Esterase 1+ Negative /uL Urine RBC 14 0 - 4 /hpf Urine Microscopic WBC 14 H 0-5 /HPF Urine Squamous Epithelial Cells Mod <5 /hpf Urine Bacteria Mod H None Seen /hpf Urine Hyaline Casts Few 0 - 2 /lpf Urine Glucose 4+ H Normal mg/dL Urine Opiates Screen Neg NEGATIVE Urine Fentanyl Screen Neg NEGATIVE Urine Barbiturates Screen Neg NEGATIVE Urine Phencyclidine Screen Neg NEGATIVE Urine Amphetamines Screen Neg NEGATIVE Urine Benzodiazepines Screen Neg NEGATIVE Urine Cocaine Screen Neg NEGATIVE Urine Cannabinoids Screen Neg NEGATIVE POC Glucose 329 H 70-106 mg/dl Lactic Acid Level 1.6 0.4-2.0 mmol/L Troponin I High Sensitivity 5 </=34 ng/L Test 09/22/24 18:49 09/22/24 18:41 09/22/24 17:41 Range/Units Magnesium Level 2.2 1.6-2.6 mg/dL C-Reactive Protein High Sensitivity 0.69 <1.0 mg/dL Beta-Hydroxybutyric Acid 3.703 H < 0.4 mmol/L Plasma/Serum Blood Alcohol 3.3 <10 mg/dL Hemoglobin A1c > 14.0 H <5.7 % A1C Erythrocyte Sedimentation Rate 64 H 0-20 mm/hr Lipase 40 12-53 U/L Thyroid Stimulating Hormone (TSH) 1.39 0.55-4.78 uIU/mL Assessment/Plan Assessment/Plan Assessment: #UTI likely with gram -ves, -ve CPA tenderness, -ve CT abdomen pelvis, likely uncomplicated #Sepsis likely due to above with HR>90, RR>20 and rising WBC -ve lactate #Uncontrolled hyperglycemia, 400s, 500s #DKA ruled out, no anion gap #DM type II, on insulin and GLP 1, Uncontrolled, HbA1C>14 #Gastroenteritis, diffuse abdominal pain with associated symptoms of nausea and vomiting [id number] #Inflammatory Bowel Disease to Rule out #Acute chest pain, left lower, epigastric #Electrolyte Imbalance #Food Poisoning, less likely given 2 weeks of duration #Acute abdominal pain, CT -ve -ve lipase, abdomen nonsurgical #Gastritis, Gastritis/PUD GERD questionable #Pseudohyponatremia due to hyperglycemia #KERLINE due to VMN b/l cr. 0.7 #Hyperglycemia with poor diabetic control #Mild hypercalcemia #3 mm left lower lobe subpleural nodule, unchanged needs outpatient follow up #Small pericardial effusion #Questionable pericarditis #Likely mild CAD, Coronary artery calcification. #Status Post-cholecystectomy, LFT normal #H/o gastroparesis, BM +VE #Essential HTN, moderately controlled #Hyperlipidemia on statin #Moderate dehydration, new symptoms of dizziness and headache onset #Chronic medical non-adherence #On alternative medications, homeopathic meds only #Severe morphine allergy #H/o Intertrigo, fungal skin inflammation #Anxiety/Depression managed on SSRI #Likely, starvation ketosis Plan: #Hold GLP 1s and oral home diabetic meds #Diabetic counseling and education consulted. #Rule out , urine pending #Rule out bowel ischemia, GLP 1 side effect and IBD. #ESR, CRP and Echo to further investigate pericardial effusion/inflammatory state. #Avoid nephrotoxins, NSAID, aspirin, iv hydration continue. #NPO for now, IV Pantoprazole bid, as needed ondansetron. #Check orthostatic vitals, keep on tele for now. #Stool culture, c diff, stool WBC, stool occult blood to check with serial abdominal examination #Strictly avoid morphine, Peanut Oil, deluded 0.5 q4 for severe abdominal pain #Target BG 140-180 as per NICE sugar trial, iv insulin with SSI for NPO #Continue other home meds as appropriate Montelukast Sodium 10 Mg daily, Sertraline Hcl 25 Mg Tab daily, Atorvastatin Calcium 20 Mg Tab daily when appropriate, and Sucralfate 1 Gm Tab, 1 gram ACHS when off of NPO #MiraLAX and docusate as needed while on opioids. #Needs close follow up with PCP outpatient with [facility] and if needed GI consult once acute causes ruled out. #Trops trend with EKG repeat, given previous CAD. #IV rocephin, follow urine and blood cultures. #HOLD DVT prophylaxis with SC Lovenox, hnh stable, Sequential Compression Device till GI bleed ruled out. Code Status: Full code, goals of care and care plan discussed over 39 minutes. Patient is admitted in telemetry floor for further evaluation and management. Agreeable to the plan. Case discussed with Dr. Cuevas. Plan discussed with: Patient My Orders Orders - NINA REYNOLDS RESIDENT Procedure Category Date Status Time Admit ADMIT 09/22/24 Transmitted 22:48 Allergies AL 09/22/24 In Process 22:48 Code Status CODE 09/22/24 Transmitted 22:48 Sodium Chloride 0.9% PHA 09/22/24 In Process 23:00 Docusate Sodium PHA 09/22/24 In Process Capsule (Colace 23:00 Enoxaparin Sodium PHA 09/23/24 In Process (Lovenox) 10:00 Comprehensive LAB 09/23/24 In Process Metabolic Panel 04:00 Cardiac DIET 09/23/24 Transmitted Diet-2gna,Lofat,Lochol Breakfast Echo 2d Mode Cardiac US 09/22/24 Logged DOP 22:48 Condition: Fair AL 09/22/24 In Process 22:48 Acetaminophen Tablet PHA 09/22/24 In Process (Tylenol Tablet) 23:00 Nitroglycerin PHA 09/22/24 In Process Sublingual (Ntrostat 23:00 Oxygen By Nasal RT 09/22/24 Transmitted Cannula 22:48 Stat Ekg For Chest AL 09/22/24 In Process Pain 22:48 Notify Of Changes AL 09/22/24 In Process From Base 22:48 Back Hand For AL 09/22/24 In Process 24 Hours 22:48 Emergency Dysrhythmia AL 09/22/24 In Process Protocol 22:48 Rhythm Strips Once AL 09/22/24 In Process Every Shift 22:48 Urine ED NURSING 09/22/24 Transmitted Chest Xray 1 View XY 09/22/24 Resulted 22:56 Npo Except Ice Chips AL 09/22/24 In Process 22:59 Pantoprazole PHA 09/22/24 In Process (Protonix) 23:00 Glucose Blood PHA 09/23/24 In Process (Accu-Chek Comfort 00:00 Insulin R (Human) PHA 09/23/24 In Process (Insulin R) 00:00 Dextrose 50% Syringe PHA 09/22/24 In Process 23:15 Ondansetron Hcl PHA 09/22/24 In Process (Zofran) 23:15 Atorvastatin (Lipitor) PHA 09/22/24 In Process 23:15 Hydromorphone PHA 09/23/24 In Process Injection (Dilaudid 00:00 Stool Wbc LAB 09/22/24 Logged 23:54 Stool Bacterial MAILE 09/22/24 Logged Culture 23:54 Clostridium Difficile MAILE 09/22/24 Logged Toxin 23:54 Urine Bacterial MAILE 09/23/24 Logged Culture 05:46 Ceftriaxone 1gm/50ml PHA 09/23/24 Logged D5w (Rocephin) 12:00 Ceftriaxone 1gm/50ml PHA 09/23/24 Logged D5w (Rocephin) 06:00 Date of Service: Sep 23, 2024 Billing Provider: EMERY CUEVAS MD Common Visit Codes: [id number] INP/OBS CARE (HIGH) Secondary Visit Codes: [id number] CARE PLAN 30 MINUTES NINA REYNOLDS RESIDENT Sep 23, 2024 06:02
[2024-09-23 06:03] LABS: Calcium 10.5 mg/dL (8.7-10.4); Glucose 269 mg/dL (74-106)
[2024-09-23] MEDS: cefTRIAXone 1GM/50ML D5W 50 ML IV ONE (06:39)
[2024-09-23] MEDS: ONDANSETRON HCL 4 MG/2 ML VIAL IV PRN (07:48)
[2024-09-23] MEDS: HYDROmorphone HCL 2 MG/ML VL/or syr IV PRN (07:49)
[2024-09-23] MEDS: ENOXAPARIN SOD 40 MG/0.4 ML SYRINGE SC SCH (10:08)
[2024-09-23] MEDS: INSULIN LANTUS (GLARGINE) 1 /0.01ml (100units/ml) SC SCH (10:11)
[2024-09-23] MEDS: SODIUM CHLORIDE 0.9% 1,000 ML IV ONE (11:15)
[2024-09-23] MEDS: cefTRIAXone 1GM/50ML D5W 50 ML IV SCH (13:32)
[2024-09-23] MEDS ORDERED: DEXTROSE (50%) 50ML SYRG IV PRN (14:00)
[2024-09-23] MEDS ORDERED: INSULIN LANTUS (GLARGINE) 1 /0.01ml (100units/ml) SC SCH (14:00)
--- NOTE | 2024-09-23 15:00 | DVHPNRES ---
Progress Note Date Seen: Sep 23, 2024 Resident Creating Document: JOLANTA RSOSI SHWETA Has the PT tested + for MRSA If YES, has PT been informed?: No Medical Necessity Reason Pt with a Central, PICC or Fol: No Subjective Review of Systems Ms. Hand, a 49-year-old female with a history of gastroparesis, hypertension, hyperlipidemia, obesity, diabetes mellitus, seasonal allergies, cholecystectomy, and chronic medical noncompliance, presents to the ED via wheelchair with a two- week history of diffuse, moderate abdominal pain accompanied by nausea and watery vomiting, without prehospital treatment, recent illness, stool changes, or identifiable triggers. On the day of presentation (09/22/24), she developed new symptoms of dizziness and headache. She was evaluated at [facility] and referred to the ED due to hyperglycemia, with blood glucose readings of 400s on two occasions. The patient admits to long-term non-compliance with prescribed medications, relying instead on homeopathic remedies. She denies urinary symptoms, polydipsia, fever, or chills. Her primary care provider is Dr. Javier. Past Medical History gastroparesis, hypertension, hyperlipidemia, obesity, diabetes mellitus, seasonal allergies, and chronic medical noncompliance Past Surgical History Cholecystectomy. No Pertinent OBGYN History Patient seen and examined at the bedside. Patient is complaining of abdominal pain, nausea and vomiting Patient reports: No new complaints, Feels better Changes from previous H/P or p: Changes Objective vital signs Vital Sign Date Time Temp Pulse Resp B/P (MAP) Pulse Ox O2 Delivery O2 Flow Rate FiO2 09/23/24 10:31 97.4 88 12 123/78 (93) 97 97.4 09/22/24 20:53 Room Air* 0 21 Total Intake and Output 09/22/24 09/22/24 09/23/24 15:00 23:00 07:00 Intake Total 1000 ml Balance 1000 ml medications Current Medications Medications Dose Ordered Sig/Roel Route Start Time Stop Time Status Last Admin Dose Admin Sodium Chloride 1,000 ml @ 120 mls/hr Q8H20M IV 09/22/24 23:00 09/23/24 07:47 120 MLS/HR Enoxaparin Sodium 40 mg DAILY SC 09/23/24 10:00 09/23/24 10:08 40 MG Acetaminophen 650 mg Q6HP PRN PO 09/22/24 23:00 Diagnostic Test (Pha) 1 strip Q6HR 09/23/24 00:00 09/23/24 12:00 1 STRIP Dextrose 50 ml UD PRN IV 09/22/24 23:15 Ondansetron HCl 4 mg Q6HPRN PRN IV 09/22/24 23:15 09/23/24 07:48 4 MG Pantoprazole Sodium 40 mg BID IV 09/23/24 10:00 09/23/24 10:08 40 MG Atorvastatin Calcium 40 mg HS PO 09/23/24 22:00 Insulin Glargine 20 units DAILY@1000 SC 09/23/24 14:00 UNV Insulin Human Lispro 5 units AC SC 09/23/24 17:00 Diagnostic Test (Pha) 1 strip IQ4HR 09/23/24 16:00 Insulin Human Regular IQ4HR SC 09/23/24 16:00 Dextrose 50 ml UD PRN IV 09/23/24 14:00 Examination General Appearance: Alert, Oriented X3, Cooperative, No acute distress HEENT: Atraumatic, PERRLA, EOMI, Mucous membrane moist/pink Respiratory: Clear to auscultation, Normal air movement Cardiovascular: Regular rate, Normal S1, Normal S2, No murmurs, no chest wall tenderness Abdominal: Mild abdominal tenderness Extremities: No clubbing, No cyanosis, No edema, Normal pulses, No tenderness/swelling Skin: No rashes, No breakdown, No significant lesion Neuro: Normal gait, Normal speech, Strength at 5/5 X4 ext, Normal tone, Sensation intact, Cranial nerves 3-12 NL, Reflexes 2+ Psych/Mental Status: Mental status NL, Mood NL laboratory and microbiology Laboratory Tests 09/23/24 05:13 Test 09/23/24 05:13 Range/Units Serum Glucose 269 H 74-106 mg/dL Labs and/or images reviewed: Labs reviewed by me, Image(s) reviewed by me Problem List/Assessment/Plan Problem List/Assessment/Plan Uncontrolled diabetes type 2 with hyperglycemia Intractable nausea and vomiting due to gastroparesis Diabetes mellitus with a thalamic neuropathy Gastroparesis, likely due to autonomic neuropathy Asymptomatic bacteriuria Excluded UTI Excluded sepsis Excluded DKA Excluded gastroenteritis Included inflammatory bowel disease KERLINE, likely VM and Mild hypercalcemia Pulmonary nodule, 3 mm Small pericardial effusion Excluded pericarditis Exophytic coronary artery disease History of hypertension Hypovolemia History of anxiety/depression * EKGs shows, normal sinus rhythm with no significant ST or T-wave changes * CT scan shows small pericardial effusion otherwise no significant finding Lines/recommendation * Insulin Lantus 20 units, lispro 5 units t.i.d., moderate sliding scale * IV Protonix * IV metoclopramide * IV fluid * Atorvastatin DIET: Diabetic diet DVT PROPHYLAXIS: Lovenox GI PROPHYLAXIS:: Protonix CODE STATUS: Goal of care discussed for more than 18 minutes, full code DISPOSITION: Med/surge Patient's status and plan discussed with the patient. Case discussed with Dr. Medina. Plan discussed with: Patient, Other (RN) My Orders My Orders Orders - JOLANTA ROSSI RESDIBRENDA Procedure Category Date Status Time Sodium Chloride 0.9% PHA 09/23/24 In Process 11:15 Atorvastatin (Lipitor) PHA 09/23/24 In Process 22:00 Insulin Lantus PHA 09/23/24 Logged (Glargine) (Lantus) 14:00 Insulin Lispro PHA 09/23/24 In Process (Human) (Humalog) 17:00 Glucose Blood PHA 09/23/24 In Process (Accu-Chek Comfort 16:00 Insulin R (Human) PHA 09/23/24 In Process (Insulin R) 16:00 Dextrose 50% Syringe PHA 09/23/24 In Process 14:00 Insulin Lantus PHA 09/23/24 Transmitted (Glargine) (Lantus) 15:00 Insulin Lantus PHA 09/23/24 Transmitted (Glargine) (Lantus) 15:00 Date of Service: Sep 23, 2024 Billing Provider: JACINTA MEDINA MD Common Visit Codes: [id number] INP/OBS CARE(HIGH) JOLANTA ROSSI RESDIENT Sep 23, 2024 15:00 JACINTA MEDINA MD Sep 24, 2024 12:06
[2024-09-23] MEDS: INSULIN LANTUS (GLARGINE) 1 /0.01ml (100units/ml) SC ONE (15:30)
[2024-09-23] MEDS: INSULIN LISPRO (HUMAN) 100 UNITS/ML ML SC SCH (16:56)
[2024-09-23] MEDS ORDERED: IBUPROFEN 100MG/5ML ORAL SUSP 100 MG/5 ML UD GT ONE (17:30)
--- NOTE | 2024-09-23 17:43 | DVHSR ---
APPROVED REPORT EXAM: Two-dimensional and M-mode echocardiogram with Doppler and color Doppler. Blood Pressure: 111/71 mmHg INDICATION Rule out structural heart disease Pericardial effusion RISK FACTORS Height: 5'7", Weight: 169 DIMENSIONS LVDd4.5 (3.8-5.7cm)LA (2D)3.6 (1.9-4.0cm)Aortic Root3.2 (2.0-3.7cm) LVDs3.0 (2.5-4.0cm)LA (MM) (1.9-4.0cm)Aortic Cusp Exc1.8 (1.5-2.0cm) EF (%) 60.0 (55-70%)Rt. Atrium3.1 (1.9-4.0cm)Asc. Aorta cm IVSd1.2 (0.7-1.1cm)RV (D)3.1 (1.8-2.4cm) PWd1.0 (0.7-1.1cm) Mitral Valve MitralMitral Stenosis E wave1.04m/sMV Mean GR.mmHg A wave0.97m/sMV Peak GR.mmHg E/A ratio1.12D MVAcm2 DECEL [id number] 1/2 Timems Aortic Valve Aortic ValveAortic Stenosis V11.01m/Emery Mean GR.4mmHg V21.20m/Emery Peak GR.6mmHg LVOT Diameter2.0 (1.8-2.4cm)Doppler AVA2.64cm2 Pulmonic Valve V20.88m/s Tricuspid Valve TR Velocity2.33m/s [id number] Conclusion lvef 60% moderate LVH grade 1 diastolic dysfunction normal rv function left atrium enlarged no severe valve abnormaliteis noted pericardial fat pad
[2024-09-23 20:00] VITALS: PULSE 115
[2024-09-23 21:00] VITALS: BP 109/66; PULSE 99; RESP 12; TEMP 97.2; O2SAT 97
[2024-09-24] VITALS (8 sets, daily range): BP systolic 111–146; BP diastolic 61–109; PULSE 68–107; RESP 14–20; TEMP 97–99.1; O2SAT 98–100
[2024-09-24] MEDS: KETOROLAC TROMETH 30 MG/ML 1ML VIAL IV ONE (01:39)
[2024-09-24] MEDS: ONDANSETRON HCL 4 MG/2 ML VIAL IV ONE (01:39)
[2024-09-24] MEDS: POLYETHYLENE GLYCOL 17 GM PWDR PO ONE (01:40)
[2024-09-24 02:15] LABS: Basophils # (auto) 0.1 10 ^3/uL (0-0.2); Basophils % (auto) 0.7 % (0.0-2.0); Eosinophils # (auto) 0.2 10 ^3/uL (0-0.8); Eosinophils % (auto) 2.5 % (0.0-7.0); Hematocrit 40.8 % (36.0-46.0); Hemoglobin 13.9 g/dL (12.2-16.2); Lymphocytes # (auto) 3.3 10 ^3/uL (0.4-5.4); Lymphocytes % (auto) 34.8 % (10.0-50.0); Mean Corpuscular Hemoglobin 31.6 pg (28.0-32.0); Mean Corpuscular Hgb Conc. 34.1 g/dL (32.0-36.0); Mean Corpuscular Volume 92.6 fL (80.0-100.0); Monocytes # (auto) 0.5 10 ^3/uL (0-1.3); Monocytes % (auto) 5.2 % (0.0-12.0); Neutrophils # (auto) 5.4 10 ^3/uL (1.6-8.6); Neutrophils % (auto) 56.8 % (37.0-80.0); Nucleated Red Blood Cells % 0.1 %; Platelet Count (auto) 248 10^3/uL (140-450); Red Blood Cells 4.41 10^6/uL (4.0-5.20); Red Cell Distribution Width 12.7 % (11.8-14.3); White Blood Cell 9.5 10^3/uL (4.4-10.8)
[2024-09-24 03:52] LABS: Anion Gap 12 (5-15)
[2024-09-24 03:57] LABS: BUN/Creatinine Ratio 23.8 (10.0-20.0); Chloride 106 mmol/L (98-107); Potassium 4.4 mmol/L (3.5-5.1); Sodium 138 mmol/L (136-145)
[2024-09-24 03:58] LABS: Blood Urea Nitrogen 15 mg/dL (9-23); Calcium 9.2 mg/dL (8.7-10.4); Carbon Dioxide 20 mmol/L (20-31); Glucose 167 mg/dL (74-106)
--- NOTE | 2024-09-24 05:06 | DVH ---
EXAM: XR Abdomen, 1 View CLINICAL INDICATION: r/o obstruction TECHNIQUE: Frontal supine view of the abdomen/pelvis. COMPARISON: None FINDINGS: GASTROINTESTINAL TRACT: Fecal retention in the colon consistent with constipation. No dilation. BONES/JOINTS: Unremarkable. No acute fracture. OTHER FINDINGS: . IMPRESSION: Fecal retention in the colon consistent with constipation.
[2024-09-24] MEDS: INSULIN LANTUS (GLARGINE) 1 /0.01ml (100units/ml) SC SCH (09:32)
--- NOTE | 2024-09-24 10:30 | ECG ---
[facility] Test Date: 2024-09-22 Test Time: 17:31:56 Pat Name: SLAVA CRUMP Department: ER Room: 0223T B Gender: F Bed Setter: CON : 1975 Requested By: EILEEN DE LEÓN Order Number: [id number] Reading MD: Sudhir Monk Measurements Intervals [place] Rate: 118 P: 56 MA: 162 QRS: 108 QRSD: 93 T: 58 QT: 313 QTc: 439 Interpretive Statements Sinus tachycardia Consider right atrial enlargement Right axis deviation Electronically Signed On 09-25-2024 9:25:03 PDT by Sudhir Monk Please click the below link to view image of tracing.
[2024-09-24] MEDS: IBUPROFEN 600 MG TAB PO ONE (19:25)
--- NOTE | 2024-09-24 20:51 | DVHPNRES ---
Progress Note Date Seen: Sep 24, 2024 Resident Creating Document: JOLANTA ROSSI RESDIENT Has the PT tested + for MRSA If YES, has PT been informed?: No Medical Necessity Reason Pt with a Central, PICC or Fol: No Subjective Review of Systems Patient and examined at the bedside. Patient is feeling better since admission. But still complained of nausea and mild abdominal pain. Objective vital signs Vital Sign Date Time Temp Pulse Resp B/P (MAP) Pulse Ox O2 Delivery O2 Flow Rate FiO2 09/24/24 20:20 Room Air* 0 21 09/24/24 17:00 97.3 96 17 136/86 (103) 100 97.3 Total Intake and Output 09/23/24 09/23/24 09/24/24 15:00 23:00 07:00 Intake Total 100 ml 150 ml 1320 ml Balance 100 ml 150 ml 1320 ml medications Current Medications Medications Dose Ordered Sig/Roel Route Start Time Stop Time Status Last Admin Dose Admin Sodium Chloride 1,000 ml @ 120 mls/hr Q8H20M IV 09/22/24 23:00 09/24/24 16:56 120 MLS/HR Enoxaparin Sodium 40 mg DAILY SC 09/23/24 10:00 09/24/24 09:32 40 MG Ondansetron HCl 4 mg Q6HPRN PRN IV 09/22/24 23:15 09/24/24 19:27 4 MG Pantoprazole Sodium 40 mg BID IV 09/23/24 10:00 09/24/24 09:32 40 MG Atorvastatin Calcium 40 mg HS PO 09/23/24 22:00 09/23/24 21:43 40 MG Insulin Human Lispro 5 units AC SC 09/23/24 17:00 09/24/24 16:43 5 UNITS Diagnostic Test (Pha) 1 strip IQ4HR 09/23/24 16:00 09/24/24 19:35 1 STRIP Insulin Human Regular IQ4HR SC 09/23/24 16:00 09/24/24 19:37 3 UNITS Dextrose 50 ml UD PRN IV 09/23/24 14:00 Insulin Glargine 20 units DAILY@1000 SC 09/24/24 10:00 09/24/24 09:32 20 UNITS Examination General Appearance: Alert, Oriented X3, Cooperative, No acute distress HEENT: Atraumatic, PERRLA, EOMI, Mucous membrane moist/pink Respiratory: Clear to auscultation, Normal air movement Cardiovascular: Regular rate, Normal S1, Normal S2, No murmurs, no chest wall tenderness Abdominal: Normal bowel sounds, Soft, No tenderness, No hepatospenomegaly, No masses Extremities: No clubbing, No cyanosis, No edema, Normal pulses, No tenderness/swelling Skin: No rashes, No breakdown, No significant lesion Neuro: Normal gait, Normal speech, Strength at 5/5 X4 ext, Normal tone, Sensation intact, Cranial nerves 3-12 NL, Reflexes 2+ Psych/Mental Status: Mental status NL, Mood NL laboratory and microbiology Laboratory Tests 09/24/24 02:03 Test 09/24/24 02:03 Range/Units Serum Glucose 167 H 74-106 mg/dL Microbiology Date/Time Source Procedure Growth Status 09/23/24 09:54 Blood Blood Culture - Preliminary NO GROWTH AFTER 24 HOURS OF INCUBATION. Resulted 09/23/24 03:30 Voided Urine Urine Culture - Preliminary Resulted Labs and/or images reviewed: Labs reviewed by me, Image(s) reviewed by me Problem List/Assessment/Plan Problem List/Assessment/Plan Uncontrolled diabetes type 2 with hyperglycemia Intractable nausea and vomiting due to gastroparesis Diabetes mellitus with a thalamic neuropathy Gastroparesis, likely due to autonomic neuropathy Asymptomatic bacteriuria Excluded UTI Excluded sepsis Excluded DKA Excluded gastroenteritis Included inflammatory bowel disease KERLINE, likely VM and Mild hypercalcemia Pulmonary nodule, 3 mm Small pericardial effusion Excluded pericarditis Exophytic coronary artery disease History of hypertension Hypovolemia History of anxiety/depression * EKGs shows, normal sinus rhythm with no significant ST or T-wave changes * CT scan shows small pericardial effusion otherwise no significant finding Lines/recommendation * Insulin Lantus 20 units, lispro 5 units t.i.d., moderate sliding scale * IV Protonix * IV metoclopramide * IV fluid * Atorvastatin DIET: Diabetic diet DVT PROPHYLAXIS: Lovenox GI PROPHYLAXIS:: Protonix CODE STATUS: Goal of care discussed for more than 18 minutes, full code DISPOSITION: Med/surge Patient's status and plan discussed with the patient. Case discussed with Dr. Medina. Plan discussed with: Patient, Other (RN) My Orders My Orders Orders - TAYLORDMJOLANTA HANCOCK RESDIENT Procedure Category Date Status Time Consistent DIET 6/12/25 Transmitted Carb(Ccho)Diabetes Breakfast JOLANTA ROSSI RESDIENT Sep 24, 2024 20:50
[2024-09-25] VITALS (8 sets, daily range): BP systolic 96–158; BP diastolic 60–98; PULSE 83–107; RESP 18–20; TEMP 97.1–98.4; O2SAT 96–100
[2024-09-25 06:14] LABS: Basophils # (auto) 0 10 ^3/uL (0-0.2); Basophils % (auto) 0.8 % (0.0-2.0); Eosinophils # (auto) 0.2 10 ^3/uL (0-0.8); Eosinophils % (auto) 3.4 % (0.0-7.0); Hematocrit 38.1 % (36.0-46.0); Hemoglobin 13.1 g/dL (12.2-16.2); Lymphocytes # (auto) 1.9 10 ^3/uL (0.4-5.4); Lymphocytes % (auto) 32.4 % (10.0-50.0); Mean Corpuscular Hemoglobin 31.8 pg (28.0-32.0); Mean Corpuscular Hgb Conc. 34.4 g/dL (32.0-36.0); Mean Corpuscular Volume 92.4 fL (80.0-100.0); Monocytes # (auto) 0.4 10 ^3/uL (0-1.3); Monocytes % (auto) 7.3 % (0.0-12.0); Neutrophils # (auto) 3.4 10 ^3/uL (1.6-8.6); Neutrophils % (auto) 56.1 % (37.0-80.0); Nucleated Red Blood Cells % 0.1 %; Platelet Count (auto) 213 10^3/uL (140-450); Red Blood Cells 4.13 10^6/uL (4.0-5.20); Red Cell Distribution Width 12.8 % (11.8-14.3)
[2024-09-25 06:25] LABS: Potassium 3.8 mmol/L (3.5-5.1); Sodium 141 mmol/L (136-145)
[2024-09-25 06:26] LABS: Anion Gap 8 (5-15); Carbon Dioxide 23 mmol/L (20-31)
[2024-09-25 06:31] LABS: BUN/Creatinine Ratio 15.3 (10.0-20.0); Blood Urea Nitrogen 11 mg/dL (9-23)
[2024-09-25 06:35] LABS: Calcium 8.4 mg/dL (8.7-10.4); Chloride 110 mmol/L (98-107); Glucose 249 mg/dL (74-106)
[2024-09-25] MEDS: INSULIN LANTUS (GLARGINE) 1 /0.01ml (100units/ml) SC SCH (08:44)
[2024-09-25] MEDS: INSULIN LISPRO (HUMAN) 100 UNITS/ML ML SC SCH (08:45)
[2024-09-25] MEDS: AZITHROMYCIN 500MG/ 250ML 250 ML IV SCH (09:33)
[2024-09-25] MEDS: IBUPROFEN 600 MG TAB PO ONE (09:48)
--- NOTE | 2024-09-25 10:31 | DVH ---
CHEST RADIOGRAPH Indication: Pneumonia Technique: Single frontal view of the chest was obtained Comparison: XY CHEST XRAY 1 VIEW on DOS: 09/22/24, XY CHEST PORTABLE on DOS: 07/10/23, CHEST PORTABLE o n DOS: 05/28/19 FINDINGS: Lines and Tubes: None Lungs: No focal consolidation. Pleura: No effusion. No pneumothorax. Cardiomediastinal contours: Unremarkable Bones: No acute osseous abnormality. IMPRESSION: No acute cardiopulmonary disease.
[2024-09-25] MEDS: FLUTICASONE PROP NASAL SPR 0.05 % (50MCG) 16GM EACHNOSTRI ONE (11:31)
[2024-09-25] MEDS: IBUPROFEN 800 MG TAB PO ONE ×2 (13:02→17:46)
[2024-09-25] MEDS: METOCLOPRAMIDE HCL 5MG/ml INJ 2ml VIAL IV SCH (13:02)
--- NOTE | 2024-09-25 21:43 | DVHPNRES ---
Progress Note Date Seen: Sep 25, 2024 Resident Creating Document: JOLANTA ROSSI SHWETA Has the PT tested + for MRSA If YES, has PT been informed?: No Medical Necessity Reason Pt with a Central, PICC or Fol: No Subjective Review of Systems Patient seen and examined at the bedside. Patient is feeling better since admission, of nausea,, abdominal pain. Patient is also complaining of new onset nasal congestion. Objective vital signs Vital Sign Date Time Temp Pulse Resp B/P (MAP) Pulse Ox O2 Delivery O2 Flow Rate FiO2 09/25/24 17:46 98.0 09/25/24 17:06 96 18 115/82 (93) 99 09/25/24 08:00 Room Air* 0 21 Total Intake and Output 09/24/24 09/24/24 09/25/24 14:59 22:59 06:59 Intake Total 280 ml 2230 ml 240 ml Balance 280 ml 2230 ml 240 ml medications Current Medications Medications Dose Ordered Sig/Roel Route Start Time Stop Time Status Last Admin Dose Admin Sodium Chloride 1,000 ml @ 120 mls/hr Q8H20M IV 09/22/24 23:00 09/25/24 17:47 120 MLS/HR Enoxaparin Sodium 40 mg DAILY SC 09/23/24 10:00 09/25/24 09:33 40 MG Ondansetron HCl 4 mg Q6HPRN PRN IV 09/22/24 23:15 09/24/24 19:27 4 MG Pantoprazole Sodium 40 mg BID IV 09/23/24 10:00 09/25/24 21:03 40 MG Atorvastatin Calcium 40 mg HS PO 09/23/24 22:00 09/25/24 21:07 40 MG Diagnostic Test (Pha) 1 strip IQ4HR 09/23/24 16:00 09/25/24 20:05 1 STRIP Insulin Human Regular IQ4HR SC 09/23/24 16:00 09/25/24 20:11 6 UNITS Dextrose 50 ml UD PRN IV 09/23/24 14:00 Insulin Glargine 24 units DAILY@1000 SC 09/25/24 07:00 09/25/24 08:44 24 UNITS Insulin Human Lispro 7 units AC SC 09/25/24 07:00 09/25/24 16:21 7 UNITS Azithromycin 250 ml @ 125 mls/hr DAILY IV 09/25/24 10:00 09/25/24 09:33 125 MLS/HR Metoclopramide HCl 10 mg Q8HR IV 09/25/24 14:00 09/25/24 21:03 10 MG Examination General Appearance: Alert, Oriented X3, Cooperative, No acute distress HEENT: Atraumatic, PERRLA, EOMI, Mucous membrane moist/pink Respiratory: Clear to auscultation, Normal air movement Cardiovascular: Regular rate, Normal S1, Normal S2, No murmurs, no chest wall tenderness Abdominal: Normal bowel sounds, Soft, No tenderness, No hepatospenomegaly, No masses Extremities: No clubbing, No cyanosis, No edema, Normal pulses, No tenderness/swelling Skin: No rashes, No breakdown, No significant lesion Neuro: Normal gait, Normal speech, Strength at 5/5 X4 ext, Normal tone, Sensation intact, Cranial nerves 3-12 NL, Reflexes 2+ Psych/Mental Status: Mental status NL, Mood NL laboratory and microbiology Laboratory Tests 09/25/24 05:40 Test 09/25/24 05:40 Range/Units Serum Glucose 249 H 74-106 mg/dL Microbiology Date/Time Source Procedure Growth Status 09/23/24 09:54 Blood Blood Culture - Preliminary NO GROWTH AFTER 48 HOURS OF INCUBATION. Resulted 09/23/24 03:30 Voided Urine Urine Culture - Final Complete Labs and/or images reviewed: Labs reviewed by me, Image(s) reviewed by me Problem List/Assessment/Plan Problem List/Assessment/Plan Uncontrolled diabetes type 2 with hyperglycemia Intractable nausea and vomiting due to gastroparesis Possible pneumonia, likely due to Gram-positive, Gram-negative/viral Diabetes mellitus with a thalamic neuropathy Gastroparesis, likely due to autonomic neuropathy Asymptomatic bacteriuria Excluded UTI Excluded sepsis Excluded DKA Excluded gastroenteritis Included inflammatory bowel disease KERLINE, likely VM and Mild hypercalcemia Pulmonary nodule, 3 mm Small pericardial effusion Excluded pericarditis Exophytic coronary artery disease History of hypertension Hypovolemia History of anxiety/depression * EKGs shows, normal sinus rhythm with no significant ST or T-wave changes * CT scan shows small pericardial effusion otherwise no significant finding Lines/recommendation * Insulin Lantus 20 units, lispro 5 units t.i.d., moderate sliding scale * IV Protonix * IV metoclopramide , Zofran * Empiric antibiotic azithromycin, breathing treatment * IV fluid * Atorvastatin DIET: Diabetic diet DVT PROPHYLAXIS: Lovenox GI PROPHYLAXIS:: Protonix CODE STATUS: Goal of care discussed for more than 18 minutes, full code DISPOSITION: Med/surge Patient's status and plan discussed with the patient. Case discussed with Dr. Medina. Plan discussed with: Patient, Other (RN) My Orders My Orders Orders - JOLANTA ROSSI RESDIBRENDA Procedure Category Date Status Time Insulin Lantus PHA 09/25/24 In Process (Glargine) (Lantus) 07:00 Insulin Lispro PHA 09/25/24 In Process (Human) (Humalog) 07:00 Covid19 Antigen [facility] 09/25/24 Logged Rapid Influenza A&B LAB 09/25/24 Logged 08:21 Azithromycin 500mg/ PHA 09/25/24 In Process 250ml (Zithromax 50 10:00 Chest Xray 1 View XY 09/25/24 Resulted 08:21 Metoclopramide PHA 09/25/24 In Process Injection (Reglan 14:00 Dietary Evaluation Review Comments: Dietary management: CCHO-60 diet Expected Outcomes/Goals: controlled DM, comorbidities prevention JOLANTA ROSSI RESDIENT Sep 25, 2024 21:43
[2024-09-26] VITALS (9 sets, daily range): BP systolic 107–154; BP diastolic 66–94; PULSE 87–110; RESP 16–20; TEMP 96.8–98.4; O2SAT 97–100
[2024-09-26 06:35] LABS: Basophils # (auto) 0 10 ^3/uL (0-0.2); Basophils % (auto) 0.6 % (0.0-2.0); Eosinophils # (auto) 0.2 10 ^3/uL (0-0.8); Eosinophils % (auto) 3.6 % (0.0-7.0); Hematocrit 39.4 % (36.0-46.0); Hemoglobin 13.6 g/dL (12.2-16.2); Lymphocytes # (auto) 2.7 10 ^3/uL (0.4-5.4); Mean Corpuscular Hemoglobin 31.8 pg (28.0-32.0); Mean Corpuscular Hgb Conc. 34.5 g/dL (32.0-36.0); Monocytes # (auto) 0.5 10 ^3/uL (0-1.3); Monocytes % (auto) 6.8 % (0.0-12.0); Neutrophils # (auto) 3.3 10 ^3/uL (1.6-8.6); Nucleated Red Blood Cells % 0.1 %; Platelet Count (auto) 233 10^3/uL (140-450); Red Blood Cells 4.28 10^6/uL (4.0-5.20); Red Cell Distribution Width 12.6 % (11.8-14.3); White Blood Cell 6.7 10^3/uL (4.4-10.8)
[2024-09-26 06:54] LABS: Chloride 106 mmol/L (98-107); Sodium 141 mmol/L (136-145)
[2024-09-26 06:55] LABS: Anion Gap 10 (5-15); Carbon Dioxide 25 mmol/L (20-31); Potassium 3.4 mmol/L (3.5-5.1)
[2024-09-26 07:00] LABS: Calcium 8.5 mg/dL (8.7-10.4)
[2024-09-26 07:01] LABS: BUN/Creatinine Ratio 14.7 (10.0-20.0); Blood Urea Nitrogen 10 mg/dL (9-23); Glucose 203 mg/dL (74-106)
[2024-09-26] MEDS: KETOROLAC TROMETH 30 MG/ML 1ML VIAL IV ONE (11:30)
--- NOTE | 2024-09-26 15:50 | DVHPN2 ---
Assessment/Plan Assessment/Plan progress note seen today during rounds, improving with upright after eating. still 2 episode of vomiting. educated on lifestyle changes. can be dc once tolerating oral diet w/o vomiting Physical exam aox2 PERRLA MMM s1 s2 rrr CTAB no le edema, soft tissue inf, black eschar in toe Labs ekg imaging reviewed Assessment and plan Uncontrolled diabetes type 2 with hyperglycemia Intractable nausea and vomiting due to gastroparesis Possible pneumonia, likely due to Gram-positive, Gram-negative/viral Diabetes mellitus with a thalamic neuropathy Gastroparesis, likely due to autonomic neuropathy Asymptomatic bacteriuria Excluded UTI Excluded sepsis Excluded DKA Excluded gastroenteritis Included inflammatory bowel disease KERLINE, likely VM and Mild hypercalcemia Pulmonary nodule, 3 mm Small pericardial effusion Excluded pericarditis Exophytic coronary artery disease History of hypertension Hypovolemia History of anxiety/depression c/w insulin regimen aim for fs 120-180 reinforce habit changes c/w protonix reglan diet cc dvt ppx lovenox Plan discussed with: Patient Date of Service: Sep 26, 2024 Billing Provider: JACINTA TODD MD Common Visit Codes: [id number] INP/OBS CARE(HIGH) JACINTA TODD MD Sep 26, 2024 15:50
[2024-09-26 21:26] LABS: COVID19 ANTIGEN SOFIA FIA NEGATIVE (NEGATIVE); Rapid Influenza A Negative (Negative); Rapid Influenza B Negative (Negative)
[2024-09-27 01:00] VITALS: BP 118/79; PULSE 62; RESP 17; TEMP 97.1; O2SAT 97
[2024-09-27 05:00] VITALS: BP 121/74; PULSE 95; RESP 19; TEMP 97.5; O2SAT 100
[2024-09-27] MEDS: KETOROLAC TROMETH 30 MG/ML 1ML VIAL IV ONE (05:07)
[2024-09-27 08:00] VITALS: PULSE 93
[2024-09-27 09:00] VITALS: BP 144/86; PULSE 93; RESP 18; TEMP 98.1; O2SAT 97
--- NOTE | 2024-09-27 10:40 | DVHPNRES ---
Progress Note Date Seen: Sep 27, 2024 Resident Creating Document: JOLANTA ROSSI SHWETA Has the PT tested + for MRSA If YES, has PT been informed?: No Medical Necessity Reason Pt with a Central, PICC or Fol: No Subjective Review of Systems Patient seen and examined at the bedside. Patient is still complained of severe abdominal pain. Patient reports: No new complaints, Feels better Changes from previous H/P or p: Changes Objective vital signs Vital Sign Date Time Temp Pulse Resp B/P (MAP) Pulse Ox O2 Delivery O2 Flow Rate FiO2 09/27/24 09:00 98.1 93 18 144/86 (105) 97 98.1 09/27/24 08:00 Room Air* 0 21 Total Intake and Output 09/26/24 09/26/24 09/27/24 15:00 23:00 07:00 Intake Total 600 ml 300 ml Balance 600 ml 300 ml medications Current Medications Medications Dose Ordered Sig/Roel Route Start Time Stop Time Status Last Admin Dose Admin Sodium Chloride 1,000 ml @ 120 mls/hr Q8H20M IV 09/22/24 23:00 09/26/24 17:31 120 MLS/HR Enoxaparin Sodium 40 mg DAILY SC 09/23/24 10:00 09/27/24 09:03 40 MG Ondansetron HCl 4 mg Q6HPRN PRN IV 09/22/24 23:15 09/24/24 19:27 4 MG Pantoprazole Sodium 40 mg BID IV 09/23/24 10:00 09/27/24 09:03 40 MG Atorvastatin Calcium 40 mg HS PO 09/23/24 22:00 09/26/24 21:43 40 MG Diagnostic Test (Pha) 1 strip IQ4HR 09/23/24 16:00 09/27/24 08:00 1 STRIP Insulin Human Regular IQ4HR SC 09/23/24 16:00 09/27/24 08:43 3 UNITS Dextrose 50 ml UD PRN IV 09/23/24 14:00 Insulin Glargine 24 units DAILY@1000 SC 09/25/24 07:00 09/27/24 09:18 24 UNITS Insulin Human Lispro 7 units AC SC 09/25/24 07:00 09/27/24 06:32 7 UNITS Azithromycin 250 ml @ 125 mls/hr DAILY IV 09/25/24 10:00 09/25/24 09:33 125 MLS/HR Metoclopramide HCl 10 mg Q8HR IV 09/25/24 14:00 09/27/24 05:07 10 MG Examination General Appearance: Alert, Oriented X3, Cooperative, No acute distress HEENT: Atraumatic, PERRLA, EOMI, Mucous membrane moist/pink Respiratory: Clear to auscultation, Normal air movement Cardiovascular: Regular rate, Normal S1, Normal S2, No murmurs, no chest wall tenderness Abdominal: Diffuse abdominal tenderness Extremities: No clubbing, No cyanosis, No edema, Normal pulses, No tenderness/swelling Skin: No rashes, No breakdown, No significant lesion Neuro: Normal gait, Normal speech, Strength at 5/5 X4 ext, Normal tone, Sensation intact, Cranial nerves 3-12 NL, Reflexes 2+ Psych/Mental Status: Mental status NL, Mood NL laboratory and microbiology Laboratory Tests 09/26/24 06:13 Test 09/26/24 06:13 Range/Units Serum Glucose 203 H 74-106 mg/dL Microbiology Date/Time Source Procedure Growth Status 09/23/24 09:54 Blood Blood Culture - Preliminary NO GROWTH AFTER 72 HOURS OF INCUBATION. Resulted 09/23/24 03:30 Voided Urine Urine Culture - Final Complete Labs and/or images reviewed: Labs reviewed by me, Image(s) reviewed by me Problem List/Assessment/Plan Problem List/Assessment/Plan Uncontrolled diabetes type 2 with hyperglycemia Intractable nausea and vomiting due to gastroparesis Possible pneumonia, likely due to Gram-positive, Gram-negative/viral Diabetes mellitus with a thalamic neuropathy Gastroparesis, likely due to autonomic neuropathy Asymptomatic bacteriuria Excluded UTI Excluded sepsis Excluded DKA Excluded gastroenteritis Included inflammatory bowel disease KERLINE, likely VM and Mild hypercalcemia Pulmonary nodule, 3 mm Small pericardial effusion Excluded pericarditis Exophytic coronary artery disease History of hypertension Hypovolemia History of anxiety/depression * EKGs shows, normal sinus rhythm with no significant ST or T-wave changes * CT scan shows small pericardial effusion otherwise no significant finding Lines/recommendation * Insulin Lantus 20 units, lispro 5 units t.i.d., moderate sliding scale * IV Protonix * IV metoclopramide , Zofran * Gabapentin and nortriptyline * Empiric antibiotic erythromycin, breathing treatment * IV fluid * Atorvastatin DIET: Diabetic diet DVT PROPHYLAXIS: Lovenox GI PROPHYLAXIS:: Protonix CODE STATUS: Goal of care discussed for more than 18 minutes, full code DISPOSITION: Med/surge Patient's status and plan discussed with the patient. Case discussed with Dr. Medina. Plan discussed with: Patient, Other (RN) Dietary Evaluation Review Comments: Dietary management: CCHO-60 diet Expected Outcomes/Goals: controlled DM, comorbidities prevention JOLANTA ROSSI RESDIENT Sep 27, 2024 10:40
[2024-09-27] MEDS: NORTRIPTYLINE HCL 25 MG CAP PO ONE (10:45)
[2024-09-27] MEDS: GABAPENTIN 100 MG CAP PO ONE (11:49)
--- NOTE | 2024-09-27 12:06 | DVHDSRES ---
Discharge Summary Date of Admission Resident Creating Document: JOLANTA ROSSI RESDIENT Sep 22, 2024 at 22:48 Date of Discharge: Sep 27, 2024 Admitting Diagnosis Intractable abdominal pain Labs/Diagnostic Data: Laboratory Results Test 09/27/24 08:22 09/26/24 20:00 09/26/24 06:13 09/23/24 05:13 POC Glucose 170 mg/dl (70-106) Influenza Type A Antigen Negative (Negative) Influenza Type B Antigen Negative (Negative) SARS-CoV-2 Antigen (Rapid) Negative (NEGATIVE) White Blood Count 6.7 10^3/uL (4.4-10.8) Red Blood Count 4.28 10^6/uL (4.0-5.20) Hemoglobin 13.6 g/dL (12.2-16.2) Hematocrit 39.4 % (36.0-46.0) Mean Corpuscular Volume 92.0 fL (80.0-100.0) Mean Corpuscular Hemoglobin 31.8 pg (28.0-32.0) Mean Corpuscular Hemoglobin Concent 34.5 g/dL (32.0-36.0) Red Cell Distribution Width 12.6 % (11.8-14.3) Platelet Count 233 10^3/uL (140-450) Mean Platelet Volume 7.6 fL (6.9-10.8) Neutrophils (%) (Auto) 49.0 % (37.0-80.0) Lymphocytes (%) (Auto) 40.0 % (10.0-50.0) Monocytes (%) (Auto) 6.8 % (0.0-12.0) Eosinophils (%) (Auto) 3.6 % (0.0-7.0) Basophils (%) (Auto) 0.6 % (0.0-2.0) Neutrophils # (Auto) 3.3 10 ^3/uL (1.6-8.6) Lymphocytes # (Auto) 2.7 10 ^3/uL (0.4-5.4) Monocytes # (Auto) 0.5 10 ^3/uL (0-1.3) Eosinophils # (Auto) 0.2 10 ^3/uL (0-0.8) Basophils # (Auto) 0 10 ^3/uL (0-0.2) Nucleated Red Blood Cells 0.1 % Sodium Level 141 mmol/L (136-145) Potassium Level 3.4 mmol/L (3.5-5.1) Chloride Level 106 mmol/L (98-107) Carbon Dioxide Level 25 mmol/L (20-31) Anion Gap 10 (5-15) Blood Urea Nitrogen 10 mg/dL (9-23) Creatinine 0.68 mg/dL (0.550-1.02) Glomerular Filtration Rate Calc 105 mL/min (>90) BUN/Creatinine Ratio 14.7 (10.0-20.0) Serum Glucose 203 mg/dL (74-106) Calcium Level 8.5 mg/dL (8.7-10.4) Total Bilirubin 0.6 mg/dL (0.2-1.0) Aspartate Amino Transferase (AST) 19 U/L (13-40) Alanine Aminotransferase (ALT) 25 U/L (7-40) Alkaline Phosphatase 109 U/L (46-116) Total Protein 7.1 g/dL (5.7-8.2) Albumin 3.9 g/dL (3.2-4.8) Test 09/23/24 03:30 09/22/24 23:28 09/22/24 18:49 09/22/24 18:41 Urine Color Yellow (Yellow) Urine Clarity Turbid (Clear) Urine pH 5.5 (5.0-9.0) Urine Specific [place] 1.038 (1.001-1.035) Urine Protein 1+ (Negative) Urine Ketones 2+ (Negative) Urine Blood Negative /uL (Negative) Urine Nitrite Negative (Negative) Urine Bilirubin Negative (Negative) Urine Urobilinogen Normal mg/dL (Negative) Urine Leukocyte Esterase 1+ /uL (Negative) Urine RBC 14 /hpf (0 - 4) Urine Microscopic WBC 14 /HPF (0-5) Urine Squamous Epithelial Cells Mod /hpf (<5) Urine Bacteria Mod /hpf (None Seen) Urine Hyaline Casts Few /lpf (0 - 2) Urine Glucose 4+ mg/dL (Normal) Urine Test Negative (Negative) Urine Opiates Screen Neg (NEGATIVE) Urine Fentanyl Screen Neg (NEGATIVE) Urine Barbiturates Screen Neg (NEGATIVE) Urine Phencyclidine Screen Neg (NEGATIVE) Urine Amphetamines Screen Neg (NEGATIVE) Urine Benzodiazepines Screen Neg (NEGATIVE) Urine Cocaine Screen Neg (NEGATIVE) Urine Cannabinoids Screen Neg (NEGATIVE) Lactic Acid Level 1.6 mmol/L (0.4-2.0) Troponin I High Sensitivity 5 ng/L (</=34) Magnesium Level 2.2 mg/dL (1.6-2.6) C-Reactive Protein High Sensitivity 0.69 mg/dL (<1.0) Beta-Hydroxybutyric Acid 3.703 mmol/L (< 0.4) Plasma/Serum Blood Alcohol 3.3 mg/dL (<10) Hemoglobin A1c > 14.0 % A1C (<5.7) Test 09/22/24 17:41 Erythrocyte Sedimentation Rate 64 mm/hr (0-20) Lipase 40 U/L (12-53) Thyroid Stimulating Hormone (TSH) 1.39 uIU/mL (0.55-4.78) Other Laboratory Tests 09/26/24 06:13 Brief Hx & Hospital Course: Ms. Crump, a 49-year-old female with a history of gastroparesis, hypertension, hyperlipidemia, obesity, diabetes mellitus, seasonal allergies, cholecystectomy, and chronic medical noncompliance, presents to the ED via wheelchair with a two- week history of diffuse, moderate abdominal pain accompanied by nausea and watery vomiting, without prehospital treatment, recent illness, stool changes, or identifiable triggers. On the day of presentation (09/22/24), she developed new symptoms of dizziness and headache. She was evaluated at [facility] and referred to the ED due to hyperglycemia, with blood glucose readings of 400s on two occasions. The patient admits to long-term non-compliance with prescribed medications, relying instead on homeopathic remedies. She denies urinary symptoms, polydipsia, fever, or chills. Her primary care provider is Dr. Javier. Past Medical History gastroparesis, hypertension, hyperlipidemia, obesity, diabetes mellitus, seasonal allergies, and chronic medical noncompliance Past Surgical History Cholecystectomy. No Pertinent OBGYN History Hospital course: Patient was admitted on the line of intractable abdominal pain, nausea and vomiting possibly due to gastroparesis. Abdominal CT scan showed, 3 mm left lower lobe subpleural nodule, unchanged and small pericardial effusion. Coronary artery calcification. Patient was started on Zofran, metoclopramide, nortriptyline, gabapentin, IV Protonix, and IV fluid. HB A1c was more than 14, the patient was started insulin Lantus, lispro t.i.d., and moderate sliding scale. Patient was also complaining of dry cough, mild shortness of breaths and consciousness. The patient was given empiric antibiotic of azithromycin and fluticasone nasal spray. Patient was repeated today complaining of intractable abdominal pain and the patient were given injection ketorolac and morphine. The patient was educated regarding medication adherence and how to use insulin for proper control of serum glucose. On 09/27/2024, the patient was feeling better since admission. Discharge plan discussed with the patient the patient's syndrome. Discharge plan: Follow up with the PCP within 1 week of the discharge Follow up with the GI doctor on outpatient basis for possible upper GI endoscopy/scintigraphy (gastric emptying study) Lantus 26 units evening time Lispro 7 units 3 times a day before meal Insulin regular according to sliding scale Nortriptyline 25 mg twice daily Gabapentin 200 mg 3 times daily Ondonsetron 4mg twice daily Atorvastatin 40 mg daily continue home meds Operations or Procedures [place] [address] Ph: [phone] DIAGNOSTIC IMAGING Diagnostic Imaging Report : [id number] Signed PATIENT: SLAVA CRUMP ACCT: [id number] UNIT: [id number] : 1975 LOC: ER ROOM / BED: / AGE / SEX: 49 / F ADM STATUS: REG ER SERVICE 1740 ORDERING PHYSICIAN: EILEEN DE LEÓN PROCEDURE(s): ABPL - CT AB PEL WO CON-NO ORAL OR IV REASON: abd pain ORDER NUMBER(s): [id number], ACCESSION NUMBER(s): [id number] Indication: abd pain Technique: CT axial images of the abdomen and pelvis are obtained without contrast. Coronal and sagittal reformats were obtained. Radiation Dose Information: CTDI volume is 16.51 mGy. Dose-length product is 918.98 mGy*cm Comparison: CT CT AB PEL WO CON-NO ORAL OR IV on DOS: 07/10/23, FINDINGS: There is limited interpretation of the abdomen and pelvis without administration of intravenous contrast. The lung bases demonstrate no pleural effusion. 3 mm left lower lobe subpleural nodule. Small pericardial effusion. Coronary artery calcification disease. Adrenal glands, spleen unremarkable in shape. Fatty infiltration pancreas. Cholecystectomy. Liver unremarkable in shape. No hydronephrosis, nephrolithiasis. Stomach partially distended. Small bowel loops are normal in caliber. Moderate volume stool in the colon. Normal appendix. Abdominal aorta normal in caliber. Atherosclerotic disease. Bladder partially distended. No free pelvic fluid. No inguinal lymphadenopathy. Mild thoracolumbar degenerative disc disease. IMPRESSION: 1. 3 mm left lower lobe subpleural nodule, unchanged. 2. Small pericardial effusion. Coronary artery calcification. 3. Status Post-cholecystectomy. ATED BY: MELISSA MACKENZIE MD DICTATED DATE/TIME: 09/22/241943 SIGNED BY: MELISSA MACKENZIE MD SIGNED DATE/TIME: 09/22/241943 CC: [place] [address] Ph: [phone] DIAGNOSTIC IMAGING Diagnostic Imaging Report : [id number] Signed PATIENT: SLAVA CRUMP ACCT: [id number] UNIT: [id number] : 1975 LOC: [facility] ROOM / BED: [address] [place] [address] AGE / SEX: 49 / F ADM STATUS: ADM IN SERVICE 47 ORDERING PHYSICIAN: NINA REYNOLDS RESIDENT PROCEDURE(s): ECIDC - ECHO 2D MODE CARDIAC DOP REASON: rule out structural heart disease , pericardial effusion. ORDER NUMBER(s): [id number], ACCESSION NUMBER(s): [id number] APPROVED REPORT EXAM: Two-dimensional and M-mode echocardiogram with Doppler and color Doppler. Blood Pressure: 111/71 mmHg INDICATION Rule out structural heart disease Pericardial effusion RISK FACTORS Height: 5'7", Weight: 169 DIMENSIONS LVDd 4.5 (3.8-5.7cm) LA (2D) 3.6 (1.9-4.0cm) Aortic Root 3.2 (2.0- 3.7cm) LVDs 3.0 (2.5-4.0cm) LA (MM) (1.9-4.0cm) Aortic Cusp Exc 1.8 (1.5- 2.0cm) EF (%) 60.0 (55-70%) Rt. Atrium 3.1 (1.9-4.0cm) Asc. Aorta cm IVSd 1.2 (0.7-1.1cm) RV (D) 3.1 (1.8-2.4cm) PWd 1.0 (0.7-1.1cm) Mitral Valve Mitral Mitral Stenosis E wave 1.04m/s MV Mean GR. mmHg A wave 0.97m/s MV Peak GR. mmHg E/A ratio 1.1 2D MVA cm2 DECEL Time 163ms PRESS 1/2 Time ms Aortic Valve Aortic Valve Aortic Stenosis V1 1.01m/s AO Mean GR. 4mmHg V2 1.20m/s AO Peak GR. 6mmHg LVOT Diameter 2.0 (1.8-2.4cm) Doppler BIN 2.64cm2 Pulmonic Valve V2 0.88m/s Tricuspid Valve TR Velocity 2.33m/s RVSP 25mmHg Conclusion lvef 60% moderate LVH grade 1 diastolic dysfunction normal rv function left atrium enlarged no severe valve abnormaliteis noted pericardial fat pad SIGNED BY: FILI BURRELL MD SIGNED DATE/TIME: 09/23/24 0167 CC: Condition at Discharge: Good Final Diagnosis/Problems List Uncontrolled diabetes type 2 with hyperglycemia Intractable nausea and vomiting due to gastroparesis Possible pneumonia, likely due to Gram-positive, Gram-negative/viral Diabetes mellitus with diabetic neuropathy Gastroparesis, likely due to autonomic neuropathy Asymptomatic bacteriuria Excluded UTI Excluded sepsis Excluded DKA Excluded gastroenteritis Excluded inflammatory bowel disease KERLINE, likely VMN Mild hypercalcemia Pulmonary nodule, 3 mm Small pericardial effusion Excluded pericarditis Excluded coronary artery disease History of hypertension Hypovolemia History of anxiety/depression Discharge Disposition: Home Discharge Statement: "Patient was advised to return to the ER or call 911 if any headaches, dizziness, shortness of breath, chest pain, abdominal pain, bleeding, fevers, or worsening of medical condition. Patient was counseled about treatment plan, medications, possible side effects, patientverbalized understanding. All questions were answered to the best of my ability. This discharge took greater then 30 minutes in planning, reviewing documentation, counseling the patient, and discussing with other team members." ASSESSMENT ASSESSMENT Assessment JOLANTA ROSSI RESDIENT Sep 27, 2024 12:06
[2024-09-27] MEDS ORDERED: INSU100I70 SC (12:51)
[2024-09-27] MEDS ORDERED: BLOO-169 XX ×2 (12:51→13:01)
[2024-09-27] MEDS ORDERED: INSU100I52 IJ (12:51)
[2024-09-27] MEDS ORDERED: ONDA-155 PO (12:51)
[2024-09-27] MEDS ORDERED: GABA300T4 PO (12:51)
[2024-09-27] MEDS ORDERED: INSR100KIT IV (12:51)
[2024-09-27] MEDS ORDERED: NORT-22 PO (12:51)
[2024-09-27] MEDS ORDERED: ATOR1POW XX (12:51)
[2024-09-27] MEDS ORDERED: ISOP70MI2 EX (12:51)
[2024-09-27] MEDS ORDERED: PANT40TA2 PO (12:51)
[2024-09-27 13:00] VITALS: BP 148/90; PULSE 96; RESP 18; TEMP 97.8; O2SAT 99
[2024-09-27] MEDS ORDERED: GLUC-224 VI (13:13)
[2024-09-27] MEDS ORDERED: LANC-347 XX (13:15)
[2024-09-27] MEDS: GABAPENTIN 100 MG CAP PO SCH (13:42)
[2024-09-27 16:41] VITALS: BP 149/95; PULSE 92; RESP 20; TEMP 98.1; O2SAT 97
[2024-09-27] MEDS ORDERED: NORTRIPTYLINE HCL 25 MG CAP PO SCH (22:00)
== END 2024-09-27 19:35 | disposition home or self-care (01) | DRG 48 ==
LOC: ER 17:27 → OVERFLOW 22:48 → TELE-CENTR 09-23 16:08
PROVIDERS: ADMIT Student in an Organized Health Care Education/Training Program; ATTEND Nurse Practitioner Family
DX: E11.43 Type 2 diabetes mellitus with diabetic autonomic (poly)neuropathy (principal); N17.0 Acute kidney failure with tubular necrosis; I31.39 Other pericardial effusion (noninflammatory); J15.69 Pneumonia due to other Gram-negative bacteria; J12.9 Viral pneumonia, unspecified; J15.9 Unspecified bacterial pneumonia; E86.0 Dehydration; E87.8 Other disorders of electrolyte and fluid balance, not elsewhere classified; E66.9 Obesity, unspecified; E11.65 Type 2 diabetes mellitus with hyperglycemia; I10 Essential (primary) hypertension; Z20.822 Contact with and (suspected) exposure to COVID-19; E78.5 Hyperlipidemia, unspecified; K31.84 Gastroparesis; E83.52 Hypercalcemia; E86.1 Hypovolemia; F41.9 Anxiety disorder, unspecified; R91.1 Solitary pulmonary nodule; R82.71 Bacteriuria; Z68.27 Body mass index [BMI] 27.0-27.9, adult; Z83.3 Family history of diabetes mellitus; Z90.49 Acquired absence of other specified parts of digestive tract; Z88.5 Allergy status to narcotic agent; Z91.018 Allergy to other foods; Z91.199 Patient's noncompliance with other medical treatment and regimen due to unspecified reason; Z79.4 Long term (current) use of insulin; Z79.899 Other long term (current) drug therapy; Z79.82 Long term (current) use of aspirin
CPT/HCPCS: 36415; 36600; 71045; 74018; 74176; 80048; 80053; 80307; 80320; 81001; 81025; 82010; 82805; 82962; 83036; 83605; 83690; 83735; 84443; 84484; 85025; 85652; 86141; 87040; 87086; 87426; 87804; 93005; 93306; 96374; 96375; G0378; J1815; J1885; J2405; J2470

== ENCOUNTER 2025-04-08 05:57 | Inpatient (IN) | payer MEDICAID ==
[2025-04-08] VITALS (9 sets, daily range): BP systolic 117–167; BP diastolic 59–139; PULSE 110–129; RESP 8–18; TEMP 98.3; O2SAT 93–99
[~2025-04-08] VITALS: Ht 170.2 cm; Wt 81.8 kg
[~2025-04-08 05:57] MED LIST changes: -ASPI-543 PO; +ATOR1POW XX; -ATOR20TA50 PO; -BACDST PO; +BLOO-169 XX; -CHOL20007 PO; -FLUC200T PO; -FURO40TA4 PO; +GABA300T4 PO; -GLIP10TA9 PO; +GLUC-224 VI; -HYDR-4902 PO; +INSR100KIT IV; -INSREGI SC; -INSU-450 XX; +INSU100I52 IJ; +INSU100I70 SC; -INSU300I SC; +ISOP70MI2 EX; +LANC-347 XX; -LISI-275 PO; -METO10TA4 PO; -MONT-8 PO; +NORT-22 PO; +ONDA-155 PO; -PIOG1TAB37 PO; -POLY33504 PO; -SEMA14TA2 PO; -SERT25TA28 PO; -SITA100T7 PO; -SUCR1TAB31 PO; -ZOFR4T PO; -[UNRECOGNIZED DRUG - CODE] BC
[2025-04-08] MEDS: MORPHINE SULFATE 4 MG/ML SYR/VIAL IV ONE (06:45)
--- NOTE | 2025-04-08 07:01 | ED.PDOC ---
GI ASSESSMENT HPI Comments 49 y/o F, presents to the ED for CC of abdominal pain. patient states, she has been experiencing symptoms of diffuse abdominal pain with associated nausea and vomiting onset, 1330 yesterday afternoon (04/07/25). Patient denies recent changes in diet, possible consumption of spoiled food, fever, chills, or melena. Chief Complaint: Abdominal Pain Time Seen by MD: 06:15 Primary Care Provider: TIAN Reviewed Notes: Nurses Notes, Medications, Allergies Allergies: Coded Allergies: Acetaminophen (Unverified Allergy, Unknown, 09/23/24) Morphine (Verified Allergy, Unknown, 05/28/19) Peanut Oil (Verified Allergy, Unknown, 09/22/24) Home Meds Active Scripts Lancets (Freestyle Lancets) Lancets Mis, EA XX ACHS, #120 Check blood sugar before each meal and at bedtime Prov:JOLANTA ROSSI RESDIENT 09/27/24 Glucose Blood (EASY TOUCH GLUCOSE TEST S) Strips Jennifer, 1 EA ACHS for 30 Days, #120 MISC Prov:HEJOLANTA AVELAR RESDIENT 09/27/24 Ondansetron HCl (Ondansetron) 4 Mg Tab, 4 MG PO BID for 20 Days, #40 TAB Prov:HEJOLANTA AVELAR RESDIENT 09/27/24 Atorvastatin Calcium (Atorvastatin Calcium) 1 Pow Pow, 1 POW XX HS for 20 Days, #60 POW 1 Refill Prov:HEJOLANTA AVELAR RESDIENT 09/27/24 Pantoprazole Sodium Sesquihydr (Protonix) 40 Mg Tab, 40 MG PO DAILY, #30 TAB Prov:HEJOLANTA AVELAR RESDIENT 09/27/24 Gabapentin (Once-Daily) (Gabapentin) 300 Mg Tab, 300 MG PO BID for 20 Days, #40 TAB 1 Refill Prov:HEJOLANTA AVELAR RESDIENT 09/27/24 Nortriptyline HCl (Nortriptyline Hydrochlori) 25 Mg Cap, 25 MG PO BID for 20 Days, #60 CAP 1 Refill Prov:HEJOLANTA AVELAR RESDIENT 09/27/24 Blood Glucose Monitoring Suppl (EASY TOUCH GLUCOSE MONITO) Monitor Kit, EA XX ACHS, #1 Check blood sugar before each meal and at bedtime Prov:JOLANTA ROSSI RESDIENT 09/27/24 Insulin Regular (Human) (INSULIN DRIP KIT (OPEN HEART ONLY)) 100 Units/100 Ml Iv, 0 IV Q6HP PRN for 30 Days, #10 INJ 1 Refill Check blood sugar before each meal and at bedtime Prov:JOLANTA ROSSI RESDIENT 09/27/24 Isopropyl Alcohol (Isopropyl Alcohol Wipes) 70 % Mis, 70 % EX ACHS for 30 Days, #120 MISC 1 Refill Prov:JOLANTA ROSSI RESDIENT 09/27/24 Insulin Lispro (Insulin Lispro) 100 Unit/Ml Inj, 8 UNIT IJ AC for 30 Days, #10 INJ 5 Refills Prov:JOLANTA ROSSI RESDIENT 09/27/24 Insulin Glargine-Yfgn (Insulin Glargine) 100 Unit/Ml Inj, 26 UNIT SC HS for 30 Days, #10 INJ 5 Refills Prov:JOLANTA ROSSI RESDIENT 09/27/24 Information Source: Patient Mode of Arrival: Ambulatory Timing: Hours Duration: Since onset Prehospital treatment: None Quality: None Vomitus: Watery Stool: Normal Severity: Moderate Recent: None Recent Hx of: None Pain Location: Diffuse Modifying Factors: Nothing Associated sign and symptoms: Nausea, Vomiting, Abdominal Pain Past Medical History PAST MEDICAL HISTORY: DM, High Lipids, HTN Surgical History: Cholecystectomy 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 CUTTER History: No Pertinent MOLDING CUTTER History Family History Family History: Family hx of DM Family History (Other): Gastroparesis Social History Smoker: Non-Smoker Alcohol: Denies ETOH Use Drugs: Denies Drug Use Lives In: Home Constitutional: denies: chills, diaphoresis, fatigue, fever, malaise, sweats, weakness, others EENTM: denies: blurred vision, double vision, ear bleeding, ear discharge, ear drainage, ear pain, ear ringing, eye pain, eye redness, hearing loss, mouth pain, mouth swelling, nasal discharge, nose bleeding, nose congestion, nose pain, photophobia, tearing, throat pain, throat swelling, voice changes, others Respiratory: denies: cough, hemoptysis, orthopnea, SOB at rest, shortness of breath, SOB with excertion, stridor, wheezing, others Cardiovascular: denies: chest pain, dizzy spells, diaphoresis, Dyspnea on exertion, edema, irregular heart beat, left arm pain, lightheadedness, palpitations, PND, syncope, others Gastrointestinal: reports: abdominal pain, nausea, vomiting; denies: abdomen distended, blood streaked bowels, constipated, diarrhea, dysphagia, difficulty swallowing, hematemesis, melena, poor appetite, poor fluid intake, rectal blee ding, rectal pain, others Genitourinary: denies: abnormal vagina bleeding, burning, dyspareunia, dysuria, flank pain, frequency, hematuria, incontinence, pain, , vagina discharge, urgency, others Neurological: denies: dizziness, fainting, headache, left sided numbness, left sided weakness, numbness, paresthesia, pre-existing deficit, right sided numbness, right sided weakness, seizure, speech problems, tingling, tremors, weakness, others Musculoskeletal: denies: back pain, gout, joint pain, joint swelling, muscle pain, muscle stiffness, neck pain, others Integumetry: denies: bruises, change in color, change in hair/nails, dryness, laceration, lesions, lumps, rash, wounds, others Allergic/Immunocompromised: denies: Difficulty Healing, Frequent Infections, Hives, Itching, others Hematologic/Lymphatic: denies: anemia, blood clots, easy bleeding, easy bruising, swollen glands, others Endocrine: denies: excessive hunger, excessive sweating, excessive thirst, excessive urination, flushing, intolerance to cold, intolerance to heat, unexplained weight gain, unexplained weight loss, others Psychiatric: denies: anxiety, bipolar disorder, depression, hopeless, panic disorder, schizophrenia, sleepless, suicidal, others All Other Systems: Reviewed and Negative Physical Exam General Appearance: Moderate Distress HEENT: Normal ENT Inspection, Pharynx Normal, TMs Normal Neck: Full Range of Motion, Non-Tender, Normal, Normal Inspection Respiratory: Chest Non-Tender, Lungs Clear, No Accessory Muscle Use, No Respiratory Distress, Normal Breath Sounds Cardiovascular: No Edema, No JVD, No Murmur, No Gallop, Normal Peripheral Pulses, Regular Rate/Rhythm Breast Exam: Deferred Gastrointestinal: No Organomegaly, Non Tender, No Pulsatile Mass, Normal Bowel Sounds, Soft Genitalia: Deferred Pelvic: Deferred Rectal: Deferred Extremities: No calf tenderness, Normal capillary refill, Normal inspection, Normal range of motion, Non-tender, No pedal edema Musculoskeletal : Apperance: Normal Neurologic: Alert, vulnerability assessment analyst II-XII nml as Tested, No Motor Deficits, Normal Affect, Normal Mood, No Sensory Deficits Cerebellar Function: NOT DONE Reflexes: NOT DONE Skin: Dry, Normal Color, Warm Peripheral Pulses: 3+ Radial (R), 3+ Radial (L) Lymphatic: No Adenopathy Was a procedure done? Was a procedure done?: No GI differential Dx Differential Diagnosis: Bowel Obstruction, Constipation, Diverticular disease, Esophagitis, Gastritis/PUD, Gastroenteritis, Electrolyte Imbalance, Bacterial, Viral X-Ray, Labs, Meds, VS Vital Signs Date Time Temp Pulse Resp B/P (MAP) Pulse Ox O2 Delivery O2 Flow Rate FiO2 04/08/25 08:54 97.4 125 18 116/92 (100) 96 97.4 04/08/25 08:10 97.4 125 18 116/92 (100) 96 97.4 04/08/25 08:10 125 18 96 Room Air* 0 21 04/08/25 06:05 97.1 124 18 148/100 96 97.1 Lab Test 04/08/25 06:54 Range/Units White Blood Count 11.5 H 4.4-10.8 10^3/uL Red Blood Count 5.02 4.0-5.20 10^6/uL Hemoglobin 15.3 12.2-16.2 g/dL Hematocrit 44.9 36.0-46.0 % Mean Corpuscular Volume 89.5 80.0-100.0 fL Mean Corpuscular Hemoglobin 30.4 28.0-32.0 pg Mean Corpuscular Hemoglobin Concent 34.0 32.0-36.0 g/dL Red Cell Distribution Width 13.9 11.8-14.3 % Platelet Count 344 140-450 10^3/uL Mean Platelet Volume 8.3 6.9-10.8 fL Neutrophils (%) (Auto) 83.8 H 37.0-80.0 % Lymphocytes (%) (Auto) 13.0 10.0-50.0 % Monocytes (%) (Auto) 2.8 0.0-12.0 % Eosinophils (%) (Auto) 0.0 0.0-7.0 % Basophils (%) (Auto) 0.4 0.0-2.0 % Neutrophils # (Auto) 9.6 H 1.6-8.6 10 ^3/uL Lymphocytes # (Auto) 1.5 0.4-5.4 10 ^3/uL Monocytes # (Auto) 0.3 0-1.3 10 ^3/uL Eosinophils # (Auto) 0 0-0.8 10 ^3/uL Basophils # (Auto) 0 0-0.2 10 ^3/uL Nucleated Red Blood Cells 0.0 % Sodium Level 137 136-145 mmol/L Potassium Level 4.5 3.5-5.1 mmol/L Chloride Level 95 L 98-107 mmol/L Carbon Dioxide Level 25 20-31 mmol/L Anion Gap 17 H 5-15 Blood Urea Nitrogen 16 9-23 mg/dL Creatinine 1.13 H 0.550-1.02 mg/dL Glomerular Filtration Rate Calc 59 >90 mL/min BUN/Creatinine Ratio 14.2 10.0-20.0 Serum Glucose 460 *H 74-106 mg/dL Calcium Level 10.3 8.7-10.4 mg/dL Current Medications Medications (Trade) Dose Ordered Sig/Roel Route Start Time Stop Time Status Last Admin Ondansetron HCl (Zofran) 4 mg ONCE ONCE IV 04/08/25 06:45 04/08/25 06:46 DC 04/08/25 08:33 Sodium Chloride 1,000 ml @ 1,000 mls/hr Q1H ONCE IVB 04/08/25 06:45 04/08/25 07:44 DC 04/08/25 08:36 Ketorolac Tromethamine (Toradol Injection) 30 mg ONCE ONCE IV 04/08/25 09:00 04/08/25 09:01 DC 04/08/25 09:08 Patient alert. Came in because of nausea vomiting. Vitals stable. Answering questions. Saturation pristine on room air. She continues to have nausea. Possible gastroenteritis. Establish intravenous access. Was given fluids. Was given Zofran. Blood sugar elevated. Was given insulin. Continue monitoring. Time of 1ST Reevaluation: 06:45 Reevaluation 1ST: Unchanged Patient Education/Counseling: Diagnosis, Treatment Family Education/Counseling: No Family Present SEPSIS Sepsis Screen Date sepsis recognized/suspect: Apr 08, 2025 Time Sepsis recognized/suspect: 0609 Recent Procedure: No On Antibiotic Therapy: No Respiratory Rate >20: No Heart Rate >90: Yes Temp<36 C (96.8 F) or >38.3 C: No SBP <90 or MAP <65 mmHG: No New Acute Mental Status Change: No Is the patient on CPAP, BIPAP,: No Physician Orders Urinalysis (04/08/25 06:43) Vital Signs Date Time Temp Pulse Resp B/P (MAP) Pulse Ox O2 Delivery O2 Flow Rate FiO2 04/08/25 08:54 97.4 125 18 116/92 (100) 96 97.4 04/08/25 08:10 97.4 125 18 116/92 (100) 96 97.4 04/08/25 08:10 125 18 96 Room Air* 0 21 04/08/25 06:05 97.1 124 18 148/100 96 97.1 Laboratory Tests Test 04/08/25 06:54 White Blood Count 11.5 10^3/uL (4.4-10.8) H Medications Medications Dose Ordered Sig/Roel Route Start Time Stop Time Status Last Admin Dose Admin Ketorolac Tromethamine 30 mg ONCE ONCE IV 04/08/25 09:00 04/08/25 09:01 DC 04/08/25 09:08 Ondansetron HCl 4 mg ONCE ONCE IV 04/08/25 06:45 04/08/25 06:46 DC 04/08/25 08:33 Sodium Chloride 1,000 ml @ 1,000 mls/hr Q1H ONCE IVB 04/08/25 06:45 04/08/25 07:44 DC 04/08/25 08:36 Departure 1 Departure Time of Disposition: 07:05 Impression: Primary Impression: Uncontrolled diabetes mellitus Qualified Codes: E13.65 - Other specified diabetes mellitus with hyperglycemia Additional Impression: Intractable vomiting with nausea Disposition: ADMITTED INPATIENT Admit to: Med Surg Condition: Guarded Critical Care Note Critical Care Time?: No Stability Stability form required: No Heart Score Heart Score: Heart Score Response (Comments) Value History N/A 0 EKG N/A 0 Age N/A 0 Risk Factors N/A 0 Troponin N/A 0 Total 0 I personally scribed for JASMYN CISNEROS MD ([email or web address]) on 04/08/25 at 07:01. Electronically submitted by Jolene Rudd ([email or web address]). JASMYN CISNEROS MD Apr 08, 2025 07:01
[2025-04-08 07:24] LABS: Potassium 4.5 mmol/L (3.5-5.1); Sodium 137 mmol/L (136-145)
[2025-04-08 07:25] LABS: Anion Gap 17 (5-15); Carbon Dioxide 25 mmol/L (20-31)
[2025-04-08 07:26] LABS: Calcium 10.3 mg/dL (8.7-10.4)
[2025-04-08 07:27] LABS: Chloride 95 mmol/L (98-107)
[2025-04-08 07:30] LABS: BUN/Creatinine Ratio 14.2 (10.0-20.0); Blood Urea Nitrogen 16 mg/dL (9-23)
[2025-04-08 07:43] LABS: Hematocrit 44.9 % (36.0-46.0); Hemoglobin 15.3 g/dL (12.2-16.2); Mean Corpuscular Hemoglobin 30.4 pg (28.0-32.0); Mean Corpuscular Volume 89.5 fL (80.0-100.0); Nucleated Red Blood Cells % 0.0 %
[2025-04-08 07:46] LABS: Glucose 460 mg/dL (74-106)
[2025-04-08] MEDS: ONDANSETRON HCL 4 MG/2 ML VIAL IV ONE ×2 (08:33→18:39)
[2025-04-08] MEDS: SODIUM CHLORIDE 0.9% 1,000 ML IVB ONE (08:36)
[2025-04-08] MEDS: KETOROLAC TROMETH 30 MG/ML 1ML VIAL IV ONE ×3 (09:08→23:05)
[2025-04-08] MEDS: PROCHLORPERAZINE EDISYLATE 5 MG/ML 2ML VIAL IV ONE (10:17)
[2025-04-08] MEDS: InsuLIN REG 1unit/0.01ml Soln (100units/ml) IV ONE (10:22)
[2025-04-08 10:23] LABS: Urine Protein, UAD 3+ (Negative)
[2025-04-08] MEDS ORDERED: DEXTROSE (50%) 50ML SYRG IV PRN (10:45)
[2025-04-08] MEDS ORDERED: LOSA-534 PO (10:55)
--- NOTE | 2025-04-08 10:58 | DVHHP2 ---
History of Present Illness Reason for Visit: Abdominal pain, nausea and vomiting History of Present Illness 49-year-old female with past medical history significant for type 2 diabetes, hypertension, hyperlipidemia, peripheral neuropathy, and medical noncompliance presents to the ED with abdominal pain, nausea, and vomiting that began yesterday. In the ED, blood glucose is 460 mg L, urinalysis positive for ketones, and beta-hydroxybutyrate is pending. Patient reports taking insulin as prescribed, however review of medical records indicates a history of poor glycemic control with A1c 14% during previous admission in September 2024. Patient denies following with endocrinology for diabetes management. No other complaints reported at this time. Past Medical History As stated in HPI Past Surgical History Cholecystectomy Family History Reviewed, non-contributory to the management of this case. Past Social History The patient lives at home, denies smoking, alcohol or illicit drugs abuse. Review of Systems Constitutional: Yes: Weakness, Malaise; No: Fever, Chills, Sweats, Other Eyes: No: Pain, Vision change, Conjunctivae inflammation, Eyelid inflammation, Other, Redness ENT: No: Ear pain, Ear discharge, Nose pain, Nose discharge, Nose congestion, Mouth pain, Mouth swelling, Throat pain, Throat swelling, Other Respiratory: No: Cough, Dry, Shortness of breath, SOB with excertion, Wheezing, Hemoptysis, Pleuritic Pain, Sputum, Wheezing, Other Cardiovascular: No: Chest Pain, Palpitations, Orthopnea, Paroxysmal Noc. Dyspnea, Edema, Lt Headedness, Other Gastrointestinal: Nausea, Vomiting; No: Abdominal Pain, Diarrhea, Constipation, Melena, Hematochezia, Other Genitourinary: No Dysuria, No Frequency, No Incontinence, No Hematuria, No Retention, No Other Musculoskeletal: No: other, neck pain, shoulder pain, arm pain, back pain, hand pain, leg pain, foot pain Skin: No: Rash, Lesions, Jaundice, Bruising, Other Neurological: No: Weakness, Numbness, Incoordination, Change in speech, C onfusion, Seizures, Other Allergies: Coded Allergies: Acetaminophen (Unverified Allergy, Unknown, 09/23/24) Morphine (Verified Allergy, Unknown, 05/28/19) Peanut Oil (Verified Allergy, Unknown, 09/22/24) Exam Vital Signs Vital Signs Date Time Temp Pulse Resp B/P (MAP) Pulse Ox O2 Delivery O2 Flow Rate FiO2 04/08/25 08:54 97.4 125 18 116/92 (100) 96 97.4 04/08/25 08:10 Room Air* 0 21 General Appearance: Alert, Cooperative, mild distress HEENT: Atraumatic, PERRLA, EOMI Respiratory: Clear to auscultation, Normal air movement Cardiovascular: Regular rate, Normal S1 Abdominal: Normal bowel sounds, Soft Extremities: No clubbing, No cyanosis, No edema Skin: No rashes, No breakdown Neuro: Normal speech Psych/Mental Status: Mental status NL Labs/Xrays Labs Test 04/08/25 10:09 04/08/25 08:45 04/08/25 06:54 Range/Units POC Glucose 442 *H 70-106 mg/dl Urine Color Yellow Yellow Urine Clarity Cloudy H Clear Urine pH 6.0 5.0-9.0 Urine Specific [place] 1.038 H 1.001-1.035 Urine Protein 3+ H Negative Urine Ketones 2+ H Negative Urine Blood Trace H Negative /uL Urine Nitrite Negative Negative Urine Bilirubin Negative Negative Urine Urobilinogen Normal Negative mg/dL Urine Leukocyte Esterase Negative Negative /uL Urine RBC 8 0 - 4 /hpf Urine Microscopic WBC 10 H 0-5 /HPF Urine Squamous Epithelial Cells Few <5 /hpf Urine Bacteria Mod H None Seen /hpf Urine Hyaline Casts Few 0 - 2 /lpf Urine Mucus Few None Seen Urine Glucose 4+ H Normal mg/dL White Blood Count 11.5 H 4.4-10.8 10^3/uL Red Blood Count 5.02 4.0-5.20 10^6/uL Hemoglobin 15.3 12.2-16.2 g/dL Hematocrit 44.9 36.0-46.0 % Mean Corpuscular Volume 89.5 80.0-100.0 fL Mean Corpuscular Hemoglobin 30.4 28.0-32.0 pg Mean Corpuscular Hemoglobin Concent 34.0 32.0-36.0 g/dL Red Cell Distribution Width 13.9 11.8-14.3 % Platelet Count 344 140-450 10^3/uL Mean Platelet Volume 8.3 6.9-10.8 fL Neutrophils (%) (Auto) 83.8 H 37.0-80.0 % Lymphocytes (%) (Auto) 13.0 10.0-50.0 % Monocytes (%) (Auto) 2.8 0.0-12.0 % Eosinophils (%) (Auto) 0.0 0.0-7.0 % Basophils (%) (Auto) 0.4 0.0-2.0 % Neutrophils # (Auto) 9.6 H 1.6-8.6 10 ^3/uL Lymphocytes # (Auto) 1.5 0.4-5.4 10 ^3/uL Monocytes # (Auto) 0.3 0-1.3 10 ^3/uL Eosinophils # (Auto) 0 0-0.8 10 ^3/uL Basophils # (Auto) 0 0-0.2 10 ^3/uL Nucleated Red Blood Cells 0.0 % Sodium Level 137 136-145 mmol/L Potassium Level 4.5 3.5-5.1 mmol/L Chloride Level 95 L 98-107 mmol/L Carbon Dioxide Level 25 20-31 mmol/L Anion Gap 17 H 5-15 Blood Urea Nitrogen 16 9-23 mg/dL Creatinine 1.13 H 0.550-1.02 mg/dL Glomerular Filtration Rate Calc 59 >90 mL/min BUN/Creatinine Ratio 14.2 10.0-20.0 Serum Glucose 460 *H 74-106 mg/dL Calcium Level 10.3 8.7-10.4 mg/dL SEPSIS Sepsis Screen Date sepsis recognized/suspect: Apr 08, 2025 Time Sepsis recognized/suspect: 0810 Recent Procedure: No On Antibiotic Therapy: No Respiratory Rate >20: No Heart Rate >90: Yes Temp<36 C (96.8 F) or >38.3 C: No SBP <90 or MAP <65 mmHG: No New Acute Mental Status Change: No Is the patient on CPAP, BIPAP,: No Physician Orders Metronidazole 500mg/100ml (Flagyl 500mg/ (04/08/25 10:00) Beta-Hydroxybutyrate (04/08/25 10:25) Hemoglobin A1c (04/08/25 10:26) Admit (04/08/25 10:40) Code Status (04/08/25 10:40) Ondansetron Hcl (Zofran) (04/08/25 10:45) Fall Risk Precautions In Place QSHIFT (04/08/25 10:40) Complete Blood Count (04/09/25 04:00) Comprehensive Metabolic Panel (04/09/25 04:00) Condition: Serious (04/08/25 10:40) Clear Liq Diet (04/08/25 Lunch) Enoxaparin Sodium (Lovenox) (04/08/25 10:45) Insulin Drip Protocol (04/08/25 ) Sodium Chloride 0.9% (04/08/25 14:45) Sodium Chloride 0.9% (04/08/25 16:45) Insulin Drip 100 Unit/100ml (Myxredlin 1 (04/08/25 10:45) Dextrose 50% Syringe (04/08/25 10:45) Glucose Blood (Accu-Chek Comfort Curve T (04/08/25 12:00) Phosphorus (04/08/25 10:40) Magnesium (04/08/25 10:40) Osmolality, Serum (04/08/25 10:40) Abg W/ Co-Ox (04/08/25 10:40) Basic Metabolic Panel (04/08/25 10:40) Basic Metabolic Panel (04/08/25 16:40) Basic Metabolic Panel (04/08/25 22:40) Basic Metabolic Panel (04/09/25 04:40) Neurological Assessment (04/08/25 10:40) Vs/Hemodynamics .PER UNIT PROTOCOL (04/08/25 10:40) Acetone (04/08/25 10:40) Insulin Lantus (Glargine) (Lantus) (04/08/25 10:45) Insulin Lantus (Glargine) (Lantus) (04/09/25 10:00) Vital Signs Date Time Temp Pulse Resp B/P (MAP) Pulse Ox O2 Delivery O2 Flow Rate FiO2 04/08/25 08:54 97.4 125 18 116/92 (100) 96 97.4 04/08/25 08:10 97.4 125 18 116/92 (100) 96 97.4 04/08/25 08:10 125 18 96 Room Air* 0 21 04/08/25 06:05 97.1 124 18 148/100 96 97.1 Laboratory Tests Test 04/08/25 06:54 White Blood Count 11.5 10^3/uL (4.4-10.8) H Medications Medications Dose Ordered Sig/Roel Route Start Time Stop Time Status Last Admin Dose Admin Insulin Human Regular 10 units ONCE ONCE IV 04/08/25 10:00 04/08/25 10:01 DC 04/08/25 10:22 10 UNITS Ketorolac Tromethamine 30 mg ONCE ONCE IV 04/08/25 09:00 04/08/25 09:01 DC 04/08/25 09:08 30 MG Metronidazole 100 ml @ 100 mls/hr ONCE ONCE IV 04/08/25 10:00 04/08/25 10:59 04/08/25 10:20 100 MLS/HR Ondansetron HCl 4 mg ONCE ONCE IV 04/08/25 06:45 04/08/25 06:46 DC 04/08/25 08:33 4 MG Prochlorperazine Edisylate 10 mg ONCE ONCE IV 04/08/25 10:00 04/08/25 10:01 DC 04/08/25 10:17 10 MG Sodium Chloride 1,000 ml @ 1,000 mls/hr Q1H ONCE IVB 04/08/25 06:45 04/08/25 07:44 DC 04/08/25 08:36 1,000 MLS/HR Assessment/Plan Assessment/Plan #hyperglycemia with concern for DKA versus HHS (ketonuria present, beta hydroxybutyrate pending) # uncontrolled diabetes type 2, recent A1c 14 Admit to ICU IV fluid resuscitation DKA protocol initiated BMP and beta hydroxybutyrate q.6h Monitor electrolytes # acute abdominal pain, nausea and vomiting, likely due to possible DKA IV fluid Antiemetics PPI Clear liquid diet advance as tolerated # KERLINE likely VMN IV fluid # hypertension Continue with the antihypertensive medication # hyperlipidemia Continue with statin # neuropathy Continue with gabapentin # medical noncompliance Educate on the importance of medical compliance including 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-up with 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 to manage diabetes Medical plan discussed with patient Plan discussed with: Patient My Orders Orders - SHERRI FALCON TITLE ATTORNEY Procedure Category Date Status Time Beta-Hydroxybutyrate LAB 04/08/25 In Process 10:25 Hemoglobin A1c LAB 04/08/25 In Process 10:26 Admit ADMIT 04/08/25 Transmitted 10:40 Code Status CODE 04/08/25 Transmitted 10:40 Ondansetron Hcl PHA 04/08/25 Logged (Aminta) 10:45 Fall Risk Precautions AL 04/08/[address] 10:40 Complete Blood Count LAB 04/09/25 Verified 04:00 Comprehensive LAB 04/09/25 Verified Metabolic Panel 04:00 Condition: Serious AL 04/08/25 In Process 10:40 Clear Liq Diet DIET 04/08/25 Transmitted Lunch Enoxaparin Sodium PHA 04/08/25 Logged (Lovenox) 10:45 Insulin Drip Protocol AL 04/08/25 In Process Sodium Chloride 0.9% PHA 04/08/25 Logged 14:45 Sodium Chloride 0.9% PHA 04/08/25 Logged 16:45 Insulin Drip 100 PHA 04/08/25 Logged Unit/100ml (Myxredlin 10:45 Dextrose 50% Syringe PHA 04/08/25 Logged 10:45 Glucose Blood PHA 04/08/25 Logged (Accu-Chek Comfort 12:00 Phosphorus LAB 04/08/25 Logged 10:40 Magnesium LAB 04/08/25 Logged 10:40 Osmolality, Serum LAB 04/08/25 Logged 10:40 Abg W/ Co-Ox RT 04/08/25 Logged 10:40 Basic Metabolic Panel LAB 04/08/25 Logged 10:40 Basic Metabolic Panel LAB 04/08/25 Logged 16:40 Basic Metabolic Panel LAB 04/08/25 Logged 22:40 Basic Metabolic Panel LAB 04/09/25 Verified 04:40 Neurological [facility] 04/08/25 In Process Assessment 10:40 Vs/Hemodynamics [facility] 04/08/25 In Process 10:40 Acetone LAB 04/08/25 Logged 10:40 Insulin Lantus PHA 04/08/25 Logged (Glargine) (Lantus) 10:45 Insulin Lantus PHA 04/09/25 Logged (Glargine) (Lantus) 10:00 Date of Service: Apr 08, 2025 Billing Provider: SHERRI FALCONP Common Visit Codes: [id number] INP/OBS CARE (HIGH) SHERRI FALCON TITLE ATTORNEY Apr 08, 2025 10:58
[2025-04-08 11:24] LABS: Chloride 98 mmol/L (98-107); Potassium 4.0 mmol/L (3.5-5.1); Sodium 139 mmol/L (136-145)
[2025-04-08 11:25] LABS: Anion Gap 17 (5-15); Carbon Dioxide 24 mmol/L (20-31)
[2025-04-08 11:26] LABS: Calcium 10.2 mg/dL (8.7-10.4)
[2025-04-08 11:31] LABS: BUN/Creatinine Ratio 10.6 (10.0-20.0); Blood Urea Nitrogen 13 mg/dL (9-23)
[2025-04-08 11:38] LABS: Glucose 370 mg/dL (74-106)
[2025-04-08 11:46] LABS: Magnesium 1.9 mg/dL (1.6-2.6)
[2025-04-08 11:47] LABS: Base Excess -0.7 mmol/L (-2.0-3.0)
[2025-04-08] MEDS: ENOXAPARIN SOD 40 MG/0.4 ML SYRINGE SC SCH (12:07)
[2025-04-08] MEDS: ACCU-CHEK COMFORT CURVE STRIP VI SCH (12:11)
[2025-04-08] MEDS: PANTOPRAZOLE 40 MG TAB PO SCH (12:11)
[2025-04-08] MEDS: INSULIN LANTUS (GLARGINE) 1 /0.01ml (100units/ml) SC ONE (12:13)
[2025-04-08] MEDS: SODIUM CHLORIDE 0.9% 1,000 ML IV SCH ×2 (13:10→14:45)
[2025-04-08] MEDS: INSULIN DRIP 100 UNIT/100ML 100 ML IV SCH ×2 (13:10→19:45)
[2025-04-08] MEDS: ONDANSETRON HCL 4 MG/2 ML VIAL IV PRN (13:11)
[2025-04-08] MEDS: hydrALAZINE HCL 20 MG/ML VL IV PRN (13:43)
[2025-04-08 16:58] LABS: Chloride 101 mmol/L (98-107); Potassium 3.8 mmol/L (3.5-5.1); Sodium 141 mmol/L (136-145)
[2025-04-08 17:00] LABS: Anion Gap 16 (5-15); Calcium 10.0 mg/dL (8.7-10.4); Carbon Dioxide 24 mmol/L (20-31)
[2025-04-08 17:05] LABS: BUN/Creatinine Ratio 20.4 (10.0-20.0); Blood Urea Nitrogen 23 mg/dL (9-23); Glucose 295 mg/dL (74-106)
--- NOTE | 2025-04-08 18:30 | DVH ---
EXAM: CT CT AB PEL WO CON-NO ORAL OR IV History: PAIN Comparison Study: CT CT AB PEL WO CON-NO ORAL OR IV on DOS: 09/22/24, CT CT AB PEL WO CON-NO ORAL OR IV on DOS: 07/10/23, CT CT AB PEL WO CON-NO ORAL OR IV on DOS: 07/02/23 TECHNIQUE: Multidetector CT of the abdomen and pelvis without IV contrast. Axial, coronal and sagittal multiplanar reformats were obtained from the axial data set by the technologist. Radiation Dose Information: CT Dose: CTDI volume is 17.89 mGy. Dose-length product is 3.64 mGy*cm FINDINGS: The lung bases are clear. Heart size is within normal limits. Small pericardial effusion. Status post cholecystectomy. Liver, spleen, and left adrenal gland are unremarkable. 1.6 cm right adrenal nodule measuring up to 11 Hounsfield units. Moderate to significant fatty atrophy of the pancreatic head with questionable mild fat stranding adjacent to The pancreatic head. Non specific hyperdensity of the renal pyramids bilaterally. Otherwise , Kidneys, ureters, mildly distended urinary bladder are unremarkable. Uterus and adnexa are unremarkable. Fluid within the distal esophagus. Stomach is unremarkable. Small bowel loops are unremarkable. Appendix is unremarkable. Moderate amount of fecal material within the colon. No evidence of intraperitoneal free air or free fluid. No evidence of aortic aneurysm. Minimal atherosclerotic calcification of the aorta. No significant lymphadenopathy. Tiny fat containing umbilical hernia. Minimal subcutaneous emphysema of the left midabdominal ventral subcutaneous fat. No evidence of acute osseous abnormalities. IMPRESSION: Fluid within the distal esophagus. Aspiration precaution is recommended. Fatty atrophy of the pancreas most prominent over the pancreatic head with questionable mild fat stranding adjacent to The pancreatic head. Recommend correlation with lipase to exclude pancreatitis. Trace pericardial effusion.
[2025-04-08] MEDS: HYDROmorphone HCL 2 MG/ML VL/or syr IV PRN (18:38)
[2025-04-08] MEDS: ATORVASTATIN 20 MG TAB PO SCH (22:00)
[2025-04-08] MEDS: NORTRIPTYLINE HCL 25 MG CAP PO SCH (22:00)
[2025-04-08 22:56] LABS: Chloride 101 mmol/L (98-107); Sodium 141 mmol/L (136-145)
[2025-04-08 22:57] LABS: Anion Gap 9 (5-15)
[2025-04-08 22:58] LABS: Calcium 9.8 mg/dL (8.7-10.4)
[2025-04-08 23:03] LABS: BUN/Creatinine Ratio 20.8 (10.0-20.0); Blood Urea Nitrogen 21 mg/dL (9-23)
[2025-04-08 23:07] LABS: Carbon Dioxide 31 mmol/L (20-31); Glucose 131 mg/dL (74-106); Potassium 3.4 mmol/L (3.5-5.1)
[2025-04-09] VITALS (11 sets, daily range): BP systolic 119–146; BP diastolic 79–90; PULSE 108–132; RESP 17–19; TEMP 97.9–98.8; O2SAT 90–97
[2025-04-09] MEDS ORDERED: DEXTROSE (50%) 50ML SYRG IV PRN (00:45)
[2025-04-09] MEDS: POTASSIUM CHL 20MEQ/100ML 100 ML IV SCH (01:06)
[2025-04-09] MEDS: D5W/SOD CHL 0.45% 1,000 ML IV SCH (01:06)
[2025-04-09] MEDS: ACCU-CHEK COMFORT CURVE STRIP VI SCH (04:05)
[2025-04-09] MEDS: InsuLIN REG 1unit/0.01ml Soln (100units/ml) SC SCH (04:12)
[2025-04-09] MEDS ORDERED: HYDROcodone-ACET 5/325MG TAB PO PRN (05:00)
[2025-04-09] MEDS: LORazepam 2MG/ML-1ML VIAL IV PRN (05:21)
[2025-04-09 05:33] LABS: Hematocrit 41.9 % (36.0-46.0); Hemoglobin 14.1 g/dL (12.2-16.2); Mean Corpuscular Hemoglobin 30.0 pg (28.0-32.0); Mean Corpuscular Volume 89.1 fL (80.0-100.0); Nucleated Red Blood Cells % 0.0 %
[2025-04-09 05:52] LABS: Alanine Aminotransferase 19 U/L (7-40); Anion Gap 9 (5-15); BUN/Creatinine Ratio 16.8 (10.0-20.0); Calcium 9.6 mg/dL (8.7-10.4); Carbon Dioxide 30 mmol/L (20-31); Chloride 99 mmol/L (98-107); Potassium 3.9 mmol/L (3.5-5.1); Sodium 138 mmol/L (136-145); Total Protein 7.2 g/dL (5.7-8.2)
[2025-04-09 05:53] LABS: Albumin 3.9 g/dL (3.2-4.8); Bilirubin, Total 0.5 mg/dL (0.2-1.0)
[2025-04-09 06:09] LABS: Alkaline Phosphatase 128 U/L (46-116); Blood Urea Nitrogen 23 mg/dL (9-23); Glucose 201 mg/dL (74-106)
[2025-04-09] MEDS: INSULIN LANTUS (GLARGINE) 1 /0.01ml (100units/ml) SC SCH (10:26)
[2025-04-09 10:54] LABS: Triglycerides 90 mg/dL (< 150)
[2025-04-09 10:56] LABS: Cholesterol 167 mg/dL (< 200)
[2025-04-09 11:02] LABS: HDL Cholesterol 63 mg/dL (40-59)
--- NOTE | 2025-04-09 11:34 | DVH ---
CHEST RADIOGRAPH INDICATION: sob TECHNIQUE: Single frontal view of the chest was obtained COMPARISON: XR CHEST 1 VIEW on DOS: 03/13/25, XY CHEST XRAY 1 VIEW on DOS: 09/25/24, XY CHEST XRAY 1 VIEW on DOS: 09/22/24 FINDINGS: Lines and Tubes: None Lungs: No focal consolidation. Pleura: No effusion. No pneumothorax. Cardiomediastinal contours: Unremarkable Bones: No acute osseous abnormality. IMPRESSION: 1. No acute cardiopulmonary disease. 2. No change from 09/25/2024.
[2025-04-09] MEDS: LACTATED RINGER'S 1,000 ML IV SCH (13:14)
--- NOTE | 2025-04-09 14:43 | DVHPNRES ---
Progress Note Date Seen: Apr 09, 2025 Resident Creating Document: VIJAY SALINAS RESIDENT Medical Necessity Reason Pt with a Central, PICC or Fol: No Subjective Review of Systems This is a 49-year-old female with past medical history of DM 2, HTN, HLD, peripheral neuropathy, noncompliant with medical management the complaint of abdominal pain associated with nausea and vomiting since yesterday. Pain was 8/10 intensity, localized, midepigastric area, no radiation, no aggravating and relieving factors. During admission patient blood sugar 460. As per patient, she had poor appetite and not eating properly last week and barely take her insulin as directed. Patient history of recent admission in [facility] and EGD done but unknown result. Patient feeling discomfort during deglutition but denies any fever, blood mixed vomiting. Currently denies any fever, headache, neck rigidity, dysuria or any focal weakness. Past Medical History: As stated in HPI Past Surgical History: Cholecystectomy Family History: Reviewed, non-contributory to the management of this case. Past Social History: he patient lives at home, denies smoking, alcohol or illicit drugs abuse. Allergy: No acetaminophen, morphine, peanut oil PCP: Maria Eugenia Johnson Home medication: In glargine, nortriptyline, losartan, lisinopril, pioglitazone, metoprolol, Januvia, atorvastatin, aspirin, polyethylene glycol, gabapentin. Objective vital signs Vital Sign Date Time Temp Pulse Resp B/P (MAP) Pulse Ox O2 Delivery O2 Flow Rate FiO2 04/09/25 12:45 98.6 110 17 127/79 (95) 97 98.6 04/09/25 08:29 Room Air* 0 21 Total Intake and Output 04/08/25 04/08/25 04/09/25 15:00 23:00 07:00 Intake Total 312 ml 450 ml Balance 312 ml 450 ml medications Current Medications Medications Dose Ordered Sig/Roel Route Start Time Stop Time Status Last Admin Dose Admin Ondansetron HCl 4 mg Q4HP PRN IV 04/08/25 10:45 04/09/25 08:35 4 MG Enoxaparin Sodium 40 mg DAILY SC 04/08/25 10:45 04/09/25 10:23 40 MG Dextrose 50 ml UD PRN IV 04/08/25 10:45 Insulin Glargine 15 units DAILY SC 04/09/25 10:00 04/09/25 10:26 15 UNITS Nortriptyline HCl 25 mg BID PO 04/08/25 22:00 04/09/25 10:23 25 MG Pantoprazole Sodium 40 mg DAILY PO 04/08/25 10:59 04/09/25 10:23 40 MG Hydralazine HCl 10 mg Q6HP PRN IV 04/08/25 13:15 04/08/25 13:43 10 MG Hydromorphone HCl 1 mg Q6HPRN PRN IV 04/08/25 17:45 04/09/25 08:40 1 MG Diagnostic Test (Pha) 1 strip IQ4HR 04/09/25 04:00 04/09/25 12:06 1 STRIP Insulin Human Regular IQ4HR SC 04/09/25 04:00 04/09/25 12:06 6 UNITS Dextrose 50 ml UD PRN IV 04/09/25 00:45 Acetaminophen/ Hydrocodone Bitart 1 tab Q6HPRN PRN PO 04/09/25 05:00 UNV Lorazepam 0.5 mg Q8HP PRN IV 04/09/25 05:15 04/09/25 05:21 0.5 MG Ceftriaxone Sodium 50 ml @ 100 mls/hr DAILY@09 IV 04/10/25 09:00 Metronidazole 100 ml @ 100 mls/hr Q8HR IV 04/09/25 14:00 04/09/25 14:09 100 MLS/HR Lactated Ringer's 1,000 ml @ 100 mls/hr Q10H IV 04/09/25 12:00 04/09/25 13:14 100 MLS/HR Examination General Appearance: Alert, Cooperative, mild distress HEENT: Atraumatic, PERRLA, EOMI Respiratory: Clear to auscultation, Normal air movement Cardiovascular: Regular rate, Normal S1 Abdominal: Normal bowel sounds, soft and tender on deep palpation Extremities: No clubbing, No cyanosis, No edema Skin: No rashes, No breakdown Neuro: Normal speech Psych/Mental Status: Mental status NL laboratory and microbiology Laboratory Tests 04/09/25 05:09 Test 04/09/25 05:09 Range/Units Serum Glucose 201 H 74-106 mg/dL Problem List/Assessment/Plan Problem List/Assessment/Plan Possible Hyperosmolar hyperglycemic state Likely diabetic ketoacidosis Type 2 diabetes mellitus with hyperglycemia Tele monitor Beta hydroxybutyrate >4.5 ABG: PH 7.44, pCO2 33.4, PO2 77.1, SaO2 95.7 IV fluid resuscitation s/p Insulin drip Basal bolus insulin Monitor blood sugar Hemoglobin A1c BMP and beta hydroxybutyrate q.6h Monitor electrolytes Sepsis likely gastroenteritis Intractable abdominal pain likely gastroenteritis Gram-positive/Gram-negative bacteria Lipase 40 IVF PPI Diet as tolerated Antiemetic Empiric antibiotic ceftriaxone metronidazole KERLINE due to vasomotor nephropathy Hypokalemia IVF Avoid nephrotoxic drugs BMP Hypertensive hypertensive heart disease likely systolic/diastolic heart failure Metoprolol ER 25 mg Aspirin 81 mg home medication Mixed hyperlipidemia with diabetes Diabetic neuropathy Nortriptyline Atorvastatin Lifestyle modification Noncompliance with medical management Elevated alkaline phosphatase DVT prophylaxis: Lovenox GI prophylaxis: Pantoprazole Goals of care discussion. More than 23 minute spent with patient. Full code status. Case discussed with Dr. Todd Plan discussed with: Patient, Other (nurse) Visit Coding STANDARD RES Billing Provider: JACINTA TODD MD Date of Service if different f: Apr 09, 2025 Common Visit Codes: [id number] INP/OBS CARE(HIGH) VIJAY SALINAS RESIDENT Apr 09, 2025 14:43 JACINTA TODD MD Apr 14, 2025 13:51
[2025-04-09] MEDS: METOPROLOL SUCCINATE XL 50 MG TAB PO ONE (15:05)
[2025-04-09] MEDS ORDERED: MORPHINE SULFATE 4 MG/ML SYR/VIAL IV PRN (15:30)
[2025-04-09] MEDS: HYDROmorphone HCL 2 MG/ML VL/or syr IV PRN (16:23)
--- NOTE | 2025-04-09 18:22 | DVHINCON2 ---
Date of service: Apr 09, [address] Amezcua Reason for Consultation Nausea vomiting and abdominal pain History of Present Illness 49-year-old female presents to the ED with abdominal pain, nausea, and vomiting that began yesterday. In the ED, blood glucose is 460 mg L, urinalysis positive for ketones, and beta-hydroxybutyrate is pending. Patient reports taking insulin as prescribed, however review of medical records indicates a history of poor glycemic control with A1c 14% during previous admission in September 2024. Patient denies following with endocrinology for diabetes management. No other complaints reported at this time. Past Medical History with past medical history significant for type 2 diabetes, hypertension, hyperlipidemia, peripheral neuropathy, and medical noncompliance Past Surgical History Past Surgical History Cholecystectomy Family History: Diabetes mellitus G8 FATHER Allergies: Coded Allergies: Latex (Verified Allergy, Mild, 04/09/25) RASH Acetaminophen (Unverified Allergy, Unknown, 09/23/24) Morphine (Verified Allergy, Unknown, 05/28/19) Peanut Oil (Verified Allergy, Unknown, 09/22/24) Home Meds Active Scripts Lancets (Freestyle Lancets) Lancets Mis, EA XX ACHS, #120 Check blood sugar before each meal and at bedtime Prov:JOLANTA ROSSI RESDIENT 09/27/24 Glucose Blood (EASY TOUCH GLUCOSE TEST S) Strips Jennifer, 1 EA ACHS for 30 Days, #120 MISC Prov:JOLANTA ROSSI RESDIENT 09/27/24 Ondansetron HCl (Ondansetron) 4 Mg Tab, 4 MG PO BID for 20 Days, #40 TAB Prov:JOLANTA ROSSI RESDIENT 09/27/24 Atorvastatin Calcium (Atorvastatin Calcium) 1 Pow Pow, 1 POW XX HS for 20 Days, #60 POW 1 Refill Prov:JOLANTA ROSSI RESDIENT 09/27/24 Pantoprazole Sodium Sesquihydr (Protonix) 40 Mg Tab, 40 MG PO DAILY, #30 TAB Prov:JOLANTA ROSSI RESDIENT 09/27/24 Gabapentin (Once-Daily) (Gabapentin) 300 Mg Tab, 300 MG PO BID for 20 Days, #40 TAB 1 Refill Prov:JOLANTA ROSSI RESDIENT 09/27/24 Nortriptyline HCl (Nortriptyline Hydrochlori) 25 Mg Cap, 25 MG PO BID for 20 Days, #60 CAP 1 Refill Prov:JOLANTA ROSSI RESDIENT 09/27/24 Blood Glucose Monitoring Suppl (EASY TOUCH GLUCOSE MONITO) Monitor Kit, EA XX ACHS, #1 Check blood sugar before each meal and at bedtime Prov:JOLANTA ROSSI RESDIENT 09/27/24 Insulin Regular (Human) (INSULIN DRIP KIT (OPEN HEART ONLY)) 100 Units/100 Ml Iv, 0 IV Q6HP PRN for 30 Days, #10 INJ 1 Refill Check blood sugar before each meal and at bedtime Prov:JOLANTA ROSSI RESDIENT 09/27/24 Isopropyl Alcohol (Isopropyl Alcohol Wipes) 70 % Mis, 70 % EX ACHS for 30 Days, #120 MISC 1 Refill Prov:JOLANTA ROSSI RESDIENT 09/27/24 Insulin Lispro (Insulin Lispro) 100 Unit/Ml Inj, 8 UNIT IJ AC for 30 Days, #10 INJ 5 Refills Prov:JOLANTA ROSSI RESDIENT 09/27/24 Insulin Glargine-Yfgn (Insulin Glargine) 100 Unit/Ml Inj, 26 UNIT SC HS for 30 Days, #10 INJ 5 Refills Prov:JOLANTA ROSSI RESDIENT 09/27/24 Reported Medications Losartan Potassium (Losartan Potassium) 50 Mg Tab, 1 TAB PO DAILY 04/08/25 Current Medications Current Medications Medications (Trade) Dose Ordered Sig/Roel Route PRN Reason Start Time Stop Time Status Last Admin Insulin Glargine (Lantus) 15 units DAILY SC 04/09/25 10:00 04/09/25 10:26 Nortriptyline HCl (Pamelor Capsule) 25 mg BID PO 04/08/25 22:00 04/09/25 10:23 Patient Own Medication 300 mg BID PO 04/08/25 22:00 04/09/25 10:38 DC Atorvastatin Calcium (Lipitor) 40 mg HS PO 04/08/25 22:00 04/09/25 10:38 DC Insulin Human (Reg)/Sodium Chloride 100 ml @ 0.5 mls/hr Q24H IV 04/08/25 19:45 04/09/25 00:47 DC 04/09/25 00:07 Potassium Chloride 100 ml @ 50 mls/hr Q2H IV 04/09/25 00:45 04/09/25 04:44 DC 04/09/25 05:16 Dextrose/Sodium Chloride 1,000 ml @ 100 mls/hr Q10H IV 04/09/25 00:45 04/09/25 11:53 DC 04/09/25 10:43 Diagnostic Test (Pha) (Accu-Chek Comfort Curve T) 1 strip IQ4HR 04/09/25 04:00 04/09/25 16:27 Insulin Human Regular (InsuLIN R) IQ4HR SC 04/09/25 04:00 04/09/25 16:28 Dextrose 50 ml UD PRN IV Blood Sugar LESS THAN 60 04/09/25 00:45 Acetaminophen/ Hydrocodone Bitart ([place] 5/325MG Tab) 1 tab Q6HPRN PRN PO MODERATE PAIN (4-6 PAIN SCALE) 04/09/25 05:00 UNV Lorazepam (Ativan Inj) 0.5 mg Q8HP PRN IV ANXIETY 04/09/25 05:15 04/09/25 05:21 Ceftriaxone Sodium 50 ml @ 100 mls/hr DAILY@09 IV 04/10/25 09:00 Metronidazole 100 ml @ 100 mls/hr Q8HR IV 04/09/25 14:00 04/09/25 14:09 Lactated Ringer's 1,000 ml @ 100 mls/hr Q10H IV 04/09/25 12:00 04/09/25 13:14 Metoprolol Succinate (Toprol Xl) 25 mg DAILY PO 04/10/25 10:00 Morphine Sulfate 2 mg Q6HPRN PRN IV MODERATE PAIN (4-6 PAIN SCALE) 04/09/25 15:30 04/09/25 15:32 DC Tramadol HCl (Ultram) 50 mg Q6HP PRN PO MODERATE PAIN (4-6 PAIN SCALE) 04/09/25 15:30 04/09/25 15:55 DC Hydromorphone HCl (Dilaudid Injection) 1 mg Q6HPRN PRN IV PAIN SCALE 7 THRU 10 04/09/25 16:00 04/09/25 16:41 DC 04/09/25 16:23 Hydromorphone HCl (Dilaudid Injection) 0.5 mg Q6HPRN PRN IV PAIN SCALE 7 THRU 10 04/09/25 16:45 Vital Signs Vital Signs Date Time Temp Pulse Resp B/P (MAP) Pulse Ox O2 Delivery O2 Flow Rate FiO2 04/09/25 17:00 97.9 110 18 119/80 (93) 96 97.9 04/09/25 08:29 Room Air* 0 21 Physical Exam General Appearance: Alert, Cooperative, no distress HEENT: Atraumatic, PERRLA, EOMI Respiratory: Clear to auscultation, Normal air movement Cardiovascular: Regular rate, Normal S1 Abdominal: Normal bowel sounds, Soft Extremities: No clubbing, No cyanosis, No edema Skin: No rashes, No breakdown Neuro: Normal speech Psych/Mental Status: Mental status NL Labs/Diagnostic Data Labs Test 04/09/25 16:02 04/09/25 05:09 04/08/25 18:07 04/08/25 11:42 Range/Units POC Glucose 189 H 70-106 mg/dl White Blood Count 17.3 #H 4.4-10.8 10^3/uL Red Blood Count 4.70 4.0-5.20 10^6/uL Hemoglobin 14.1 12.2-16.2 g/dL Hematocrit 41.9 36.0-46.0 % Mean Corpuscular Volume 89.1 80.0-100.0 fL Mean Corpuscular Hemoglobin 30.0 28.0-32.0 pg Mean Corpuscular Hemoglobin Concent 33.7 32.0-36.0 g/dL Red Cell Distribution Width 13.9 11.8-14.3 % Platelet Count 294 140-450 10^3/uL Mean Platelet Volume 7.8 6.9-10.8 fL Neutrophils (%) (Auto) 73.5 37.0-80.0 % Lymphocytes (%) (Auto) 19.1 10.0-50.0 % Monocytes (%) (Auto) 6.3 0.0-12.0 % Eosinophils (%) (Auto) 0.2 0.0-7.0 % Basophils (%) (Auto) 0.9 0.0-2.0 % Neutrophils # (Auto) 12.7 H 1.6-8.6 10 ^3/uL Lymphocytes # (Auto) 3.3 0.4-5.4 10 ^3/uL Monocytes # (Auto) 1.1 0-1.3 10 ^3/uL Eosinophils # (Auto) 0 0-0.8 10 ^3/uL Basophils # (Auto) 0.2 0-0.2 10 ^3/uL Nucleated Red Blood Cells 0.0 % Sodium Level 138 136-145 mmol/L Potassium Level 3.9 3.5-5.1 mmol/L Chloride Level 99 98-107 mmol/L Carbon Dioxide Level 30 20-31 mmol/L Anion Gap 9 5-15 Blood Urea Nitrogen 23 9-23 mg/dL Creatinine 1.37 #H 0.550-1.02 mg/dL Glomerular Filtration Rate Calc 47 >90 mL/min BUN/Creatinine Ratio 16.8 10.0-20.0 Serum Glucose 201 H 74-106 mg/dL Calcium Level 9.6 8.7-10.4 mg/dL Total Bilirubin 0.5 0.2-1.0 mg/dL Aspartate Amino Transferase (AST) 21 13-40 U/L Alanine Aminotransferase (ALT) 19 7-40 U/L Alkaline Phosphatase 128 H 46-116 U/L Total Protein 7.2 5.7-8.2 g/dL Albumin 3.9 3.2-4.8 g/dL Triglycerides Level 90 < 150 mg/dL Cholesterol Level 167 < 200 mg/dL LDL Cholesterol 90 < 100 mg/dL HDL Cholesterol 63 H 40-59 mg/dL Lipase 40 12-53 U/L Beta-Hydroxybutyric Acid 2.634 H < 0.4 mmol/L Blood Gas Specimen Type Arterial Blood Gas Sample Site Left radial Blood Gas Patient Temperature 37.0 Arterial Blood Date Drawn Arterial Blood pH 7.446 7.350-7.450 Arterial Blood Partial Pressure CO2 33.4 32.0-45.0 mmHg Arterial Blood Partial Pressure O2 77.1 L 83.0-108.0 mmHg Arterial Blood HCO3 22.5 21.0-28.0 mmol/L Arterial Blood Oxygen Saturation 95.7 94.0-98.0 % Arterial Blood Base Excess -0.7 -2.0-3.0 mmol/L Arterial Blood Oxyhemoglobin 94.0 94.0-98.0 % Arterial Blood Carboxyhemoglobin 1.2 0.5-1.5 % Arterial Blood Methemoglobin 0.6 0.0-1.5 % Arterial Blood Deoxyhemoglobin 4.2 0.0-5.0 % Enmanuel Test Yes Blood Gas Total Hemoglobin 15.60 12.0-16.0 g/dL Blood Gas Modality Room air FiO2 % 21.0 Test 04/08/25 11:01 04/08/25 08:45 04/08/25 06:54 Range/Units Serum Osmolality 319 H 278-298 mOsm/kg Phosphorus Level 4.0 2.4-5.1 mg/dL Magnesium Level 1.9 1.6-2.6 mg/dL Urine Color Yellow Yellow Urine Clarity Cloudy H Clear Urine pH 6.0 5.0-9.0 Urine Specific [place] 1.038 H 1.001-1.035 Urine Protein 3+ H Negative Urine Ketones 2+ H Negative Urine Blood Trace H Negative /uL Urine Nitrite Negative Negative Urine Bilirubin Negative Negative Urine Urobilinogen Normal Negative mg/dL Urine Leukocyte Esterase Negative Negative /uL Urine RBC 8 0 - 4 /hpf Urine Microscopic WBC 10 H 0-5 /HPF Urine Squamous Epithelial Cells Few <5 /hpf Urine Bacteria Mod H None Seen /hpf Urine Hyaline Casts Few 0 - 2 /lpf Urine Mucus Few None Seen Urine Glucose 4+ H Normal mg/dL Hemoglobin A1c 12.3 H <5.7 % A1C Microbiology Date/Time Source Procedure Growth Status 04/09/25 05:00 Nose MRSA Screen - Final Complete Abd Pelvic CT Scan IMPRESSION: Fluid within the distal esophagus. Aspiration precaution is recommended. Fatty atrophy of the pancreas most prominent over the pancreatic head with questionable mild fat stranding adjacent to The pancreatic head. Recommend correlation with lipase to exclude pancreatitis. Trace pericardial effusion. Problems(with codes): (1) Intractable vomiting with nausea (2) Epigastric pain (3) Hyperglycemia (4) Fatty liver (5) Gastroparesis (6) Uncontrolled diabetes mellitus Plan/Recommendation Plan Continue supportive care Correct hyperglycemia Correct diabetic ketoacidosis Protonix 40 mg IV q.12 hours Reglan 5 mg IV q.8 hours I will continue monitor the patient with you Consider endoscopy once medically stabilized Plan discussed with: Other (Nurse) TIM OLEA MD Apr 09, 2025 18:22
[2025-04-09] MEDS: METOCLOPRAMIDE HCL 5MG/ml INJ 2ml VIAL IV SCH (21:19)
[2025-04-10] VITALS (8 sets, daily range): BP systolic 116–157; BP diastolic 66–99; PULSE 98–110; RESP 18–21; TEMP 96.6–98.6; O2SAT 95–100
[2025-04-10 05:22] LABS: Hematocrit 36.0 % (36.0-46.0); Hemoglobin 12.1 g/dL (12.2-16.2); Mean Corpuscular Hemoglobin 30.0 pg (28.0-32.0); Mean Corpuscular Volume 89.1 fL (80.0-100.0); Nucleated Red Blood Cells % 0.1 %
[2025-04-10 05:32] LABS: Chloride 101 mmol/L (98-107); Potassium 3.5 mmol/L (3.5-5.1); Sodium 138 mmol/L (136-145)
[2025-04-10 05:33] LABS: Anion Gap 10 (5-15); Calcium 9.0 mg/dL (8.7-10.4); Carbon Dioxide 27 mmol/L (20-31)
[2025-04-10 05:38] LABS: BUN/Creatinine Ratio 20.0 (10.0-20.0); Blood Urea Nitrogen 22 mg/dL (9-23); Glucose 96 mg/dL (74-106)
[2025-04-10] MEDS: HYDROmorphone HCL 2 MG/ML VL/or syr IV PRN ×2 (08:44→18:42)
[2025-04-10] MEDS: METOPROLOL SUCCINATE XL 50 MG TAB PO SCH (08:45)
[2025-04-10] MEDS ORDERED: PANTOPRAZOLE 40 MG/10 ML VIAL INJ IV ONE (11:15)
--- NOTE | 2025-04-10 11:28 | DVHPNRES ---
Progress Note Date Seen: Apr 10, 2025 Resident Creating Document: ОЛЬГА KIM RESIDENT Medical Necessity Reason Pt with a Central, PICC or Fol: No Subjective Review of Systems Ms. Hand is a 49-year-old female with past medical history of DM 2, HTN, HLD, peripheral neuropathy, noncompliant with medical management the complaint of abdominal pain associated with nausea and vomiting since yesterday. Pain was 8/10 intensity, localized, midepigastric area, no radiation, no aggravating and relieving factors. During admission patient blood sugar 460. As per patient, she had poor appetite and not eating properly last week and barely take her insulin as directed. Patient history of recent admission in [facility] and EGD done but unknown result. Patient feeling discomfort during deglutition but denies any fever, blood mixed vomiting. Currently denies any fever, headache, neck rigidity, dysuria or any focal weakness. Past Medical History: As stated in HPI Past Surgical History: Cholecystectomy Family History: Reviewed, non-contributory to the management of this case. Past Social History: he patient lives at home, denies smoking, alcohol or illicit drugs abuse. Allergy: No acetaminophen, morphine, peanut oil PCP: Maria Eugenia Johnson Home medication: In glargine, nortriptyline, losartan, lisinopril, pioglitazone, metoprolol, Januvia, atorvastatin, aspirin, polyethylene glycol, gabapentin. 04/10/2025: Patient seen at bedside. She states she continues to have abdominal pain and nausea. States she has not vomited and has been able to tolerate clear liquid diet. Patient is afebrile, tachycardic, normotensive and saturating adequately on room air. She was evaluated by GI who recommends continued supportive care, hyperglycemia correction, protonix, and reglan. An endoscopy may be considered once medically stabilized. ESR, CRP, and BNP have been ordered. Review of Systems: Constitutional: Denies weight loss, fever and chills. HEENT: Denies changes in vision and hearing. Respiratory: Denies shortness of breath and cough Cardiovascular: Denies chest discomfort or palpitations GI: Refers abdominal pain and nausea, Denies abdominal distention, diarrhea : Denies dysuria and urinary frequency. Musculoskeletal: Denies Skin: Denies rash and pruritus. Neurological: denies dizziness headache vision or hearing problems Objective vital signs Vital Sign Date Time Temp Pulse Resp B/P (MAP) Pulse Ox O2 Delivery O2 Flow Rate FiO2 04/10/25 09:00 98.3 110 21 135/96 (109) 98 98.3 04/10/25 08:00 Room Air* 0 21 Total Intake and Output 04/09/25 04/09/25 04/10/25 15:00 23:00 07:00 Intake Total 650 ml 1650 ml Balance 650 ml 1650 ml medications Current Medications Medications Dose Ordered Sig/Roel Route Start Time Stop Time Status Last Admin Dose Admin Ondansetron HCl 4 mg Q4HP PRN IV 04/08/25 10:45 04/09/25 08:35 4 MG Enoxaparin Sodium 40 mg DAILY SC 04/08/25 10:45 04/10/25 08:42 40 MG Dextrose 50 ml UD PRN IV 04/08/25 10:45 Insulin Glargine 15 units DAILY SC 04/09/25 10:00 04/10/25 10:00 15 UNITS Nortriptyline HCl 25 mg BID PO 04/08/25 22:00 04/10/25 08:42 25 MG Hydralazine HCl 10 mg Q6HP PRN IV 04/08/25 13:15 04/08/25 13:43 10 MG Diagnostic Test (Pha) 1 strip IQ4HR 04/09/25 04:00 04/10/25 08:00 1 STRIP Insulin Human Regular IQ4HR SC 04/09/25 04:00 04/10/25 08:40 2 UNITS Dextrose 50 ml UD PRN IV 04/09/25 00:45 Acetaminophen/ Hydrocodone Bitart 1 tab Q6HPRN PRN PO 04/09/25 05:00 UNV Lorazepam 0.5 mg Q8HP PRN IV 04/09/25 05:15 04/09/25 05:21 0.5 MG Ceftriaxone Sodium 50 ml @ 100 mls/hr DAILY@09 IV 04/10/25 09:00 04/10/25 08:42 100 MLS/HR Metronidazole 100 ml @ 100 mls/hr Q8HR IV 04/09/25 14:00 04/10/25 05:40 100 MLS/HR Lactated Ringer's 1,000 ml @ 100 mls/hr Q10H IV 04/09/25 12:00 04/10/25 08:49 100 MLS/HR Metoprolol Succinate 25 mg DAILY PO 04/10/25 10:00 04/10/25 08:45 25 MG Hydromorphone HCl 0.5 mg Q6HPRN PRN IV 04/09/25 16:45 04/10/25 08:44 0.5 MG Metoclopramide HCl 5 mg Q8HR IV 04/09/25 22:00 04/10/25 05:38 5 MG Pantoprazole Sodium 40 mg BID IV 04/10/25 22:00 UNV Examination General: The patient alert and oriented in person place and time. Patient following commands HEENT: Normocephalic, atraumatic, normal reactive pupils, EOM intact, pink conjunctiva, pink moist mucous membrane Respiratory/pulmonary: Bilateral chest expansion, no pain on palpation of chest wall, clear lungs bilaterally, vesicular murmurs present in almost all lung edmondson, no associated crackles or wheezes. Cardiovascular: Tachycardic, normal S1 and S2, no murmurs Abdomen: Abdomen nondistended, normal bowel sounds, soft, pain to general palpation, no palpable masses. Extremities: No deformities, there is no peripheral edema present at the lower extremities, normal pulses Skin: No rashes or pruritus, there is no sacral edema present at this time. Neurological: Intact cranial nerves with no focal neurologic deficits laboratory and microbiology Laboratory Tests 04/10/25 04:53 Test 04/10/25 04:53 Range/Units Serum Glucose 96 74-106 mg/dL Microbiology Date/Time Source Procedure Growth Status 04/09/25 05:00 Nose MRSA Screen - Final Complete Problem List/Assessment/Plan Problem List/Assessment/Plan Possible Hyperosmolar hyperglycemic state Likely diabetic ketoacidosis Type 2 diabetes mellitus with hyperglycemia Tele monitor Beta hydroxybutyrate >4.5 ABG: PH 7.44, pCO2 33.4, PO2 77.1, SaO2 95.7 IV fluid resuscitation s/p Insulin drip Basal bolus insulin Monitor blood sugar Hemoglobin A1c BMP and beta hydroxybutyrate q.6h Monitor electrolytes Sepsis likely gastroenteritis Intractable abdominal pain likely gastroenteritis Gram-positive/Gram-negative bacteria Lipase 40 IVF PPI Diet as tolerated Antiemetic Empiric antibiotic ceftriaxone metronidazole KERLINE due to vasomotor nephropathy Hypokalemia IVF Avoid nephrotoxic drugs BMP Hypertensive hypertensive heart disease likely systolic/diastolic heart failure Metoprolol ER 25 mg Aspirin 81 mg home medication Mixed hyperlipidemia with diabetes Diabetic neuropathy Nortriptyline Atorvastatin Lifestyle modification Noncompliance with medical management Elevated alkaline phosphatase DVT prophylaxis: Lovenox GI prophylaxis: Pantoprazole Goals of care discussion. More than 24 minute spent with patient. Full code status. Case discussed with Dr. Medina Plan discussed with: Patient, Other (Nurse) Visit Coding STANDARD RES Billing Provider: JACINTA MEDINA MD Date of Service if different f: Apr 10, 2025 Common Visit Codes: [id number] INP/OBS CARE(HIGH) ОЛЬГА KIM RESIDENT Apr 10, 2025 11:27 JACINTA MEDINA MD Apr 14, 2025 14:16
[2025-04-10] MEDS: SODIUM CHLORIDE 0.9% 1,000 ML IV ONE (14:12)
--- NOTE | 2025-04-10 21:08 | DVHPN2 ---
Progress Note - Dictate Date Seen: Apr 10, 2025 Medical Necessity Reason Pt with a Central, PICC or Fol: No vital signs Vital Sign Date Time Temp Pulse Resp B/P (MAP) Pulse Ox O2 Delivery O2 Flow Rate FiO2 04/10/25 18:42 89 19 143/89 04/10/25 17:00 98.6 99 98.6 04/10/25 08:00 Room Air* 0 21 Total Intake and Output 04/09/25 04/09/25 04/10/25 15:00 23:00 07:00 Intake Total 650 ml 1650 ml Balance 650 ml 1650 ml medications Current Medications Medications Dose Ordered Sig/Roel Route Start Time Stop Time Status Last Admin Dose Admin Ondansetron HCl 4 mg Q4HP PRN IV 04/08/25 10:45 04/10/25 16:17 4 MG Enoxaparin Sodium 40 mg DAILY SC 04/08/25 10:45 04/10/25 08:42 40 MG Dextrose 50 ml UD PRN IV 04/08/25 10:45 Cancel Insulin Glargine 15 units DAILY SC 04/09/25 10:00 04/10/25 10:00 15 UNITS Nortriptyline HCl 25 mg BID PO 04/08/25 22:00 04/10/25 08:42 25 MG Hydralazine HCl 10 mg Q6HP PRN IV 04/08/25 13:15 04/08/25 13:43 10 MG Diagnostic Test (Pha) 1 strip IQ4HR 04/09/25 04:00 04/10/25 20:20 1 STRIP Insulin Human Regular IQ4HR SC 04/09/25 04:00 04/10/25 20:25 9 UNITS Dextrose 50 ml UD PRN IV 04/09/25 00:45 Acetaminophen/ Hydrocodone Bitart 1 tab Q6HPRN PRN PO 04/09/25 05:00 UNV Lorazepam 0.5 mg Q8HP PRN IV 04/09/25 05:15 04/09/25 05:21 0.5 MG Ceftriaxone Sodium 50 ml @ 100 mls/hr DAILY@09 IV 04/10/25 09:00 04/10/25 08:42 100 MLS/HR Metronidazole 100 ml @ 100 mls/hr Q8HR IV 04/09/25 14:00 04/10/25 14:10 100 MLS/HR Lactated Ringer's 1,000 ml @ 100 mls/hr Q10H IV 04/09/25 12:00 04/10/25 20:21 100 MLS/HR Metoprolol Succinate 25 mg DAILY PO 04/10/25 10:00 04/10/25 08:45 25 MG Metoclopramide HCl 5 mg Q8HR IV 04/09/25 22:00 04/10/25 14:10 5 MG Pantoprazole Sodium 40 mg BID IV 04/10/25 22:00 Hydromorphone HCl 1 mg Q4HPRN PRN IV 04/10/25 15:45 04/10/25 18:42 1 MG laboratory and microbiology Laboratory Tests 04/10/25 04:53 Test 04/10/25 04:53 Range/Units Serum Glucose 96 74-106 mg/dL Prognosis Plan Continue supportive care Correct hyperglycemia Correct diabetic ketoacidosis Protonix 40 mg IV q.12 hours Reglan 5 mg IV q.8 hours I will continue monitor the patient with you Consider endoscopy once medically stabilized Dietary Evaluation Review Comments: Nutrition Recommendation: 1) Advance to [facility] 60gm + cardiac diet as medically feasible 2) Monitor PO intake, lab values, weight trend, and I/O Expected Outcomes/Goals: Intake to meet >75% estimated needs Lab values to improve FU 2-3 days Plan discussed with: Other (Bisi) TIM OLEA MD Apr 10, 2025 21:08
[2025-04-10] MEDS: PANTOPRAZOLE 40 MG/10 ML VIAL INJ IV SCH (22:11)
[2025-04-11] VITALS (12 sets, daily range): BP systolic 120–154; BP diastolic 80–131; PULSE 92–111; RESP 14–20; TEMP 97.2–98.3; O2SAT 96–99
[2025-04-11 05:24] LABS: Hematocrit 34.2 % (36.0-46.0); Hemoglobin 11.8 g/dL (12.2-16.2); Mean Corpuscular Hemoglobin 30.4 pg (28.0-32.0); Mean Corpuscular Volume 87.9 fL (80.0-100.0); Nucleated Red Blood Cells % 0.1 %
[2025-04-11 05:28] LABS: Anion Gap 9 (5-15); Carbon Dioxide 26 mmol/L (20-31); Chloride 105 mmol/L (98-107); Sodium 140 mmol/L (136-145)
[2025-04-11 05:29] LABS: Calcium 8.7 mg/dL (8.7-10.4); Potassium 3.4 mmol/L (3.5-5.1)
[2025-04-11 05:34] LABS: BUN/Creatinine Ratio 16.7 (10.0-20.0); Blood Urea Nitrogen 12 mg/dL (9-23); Glucose 82 mg/dL (74-106)
[2025-04-11] MEDS: POTASSIUM CHL 20 Meq TABLET PO ONE (08:38)
--- NOTE | 2025-04-11 11:08 | DVHPNRES ---
Progress Note Date Seen: Apr 11, 2025 Resident Creating Document: VIJAY SALINAS RESIDENT Medical Necessity Reason Pt with a Central, PICC or Fol: No Subjective Review of Systems Ms. Hand is a 49-year-old female with past medical history of DM 2, HTN, HLD, peripheral neuropathy, noncompliant with medical management the complaint of abdominal pain associated with nausea and vomiting since yesterday. Pain was 8/10 intensity, localized, midepigastric area, no radiation, no aggravating and relieving factors. During admission patient blood sugar 460. As per patient, she had poor appetite and not eating properly last week and barely take her insulin as directed. Patient history of recent admission in [facility] and EGD done but unknown result. Patient feeling discomfort during deglutition but denies any fever, blood mixed vomiting. Currently denies any fever, headache, neck rigidity, dysuria or any focal weakness. Past Medical History: As stated in HPI Past Surgical History: Cholecystectomy Family History: Reviewed, non-contributory to the management of this case. Past Social History: he patient lives at home, denies smoking, alcohol or illicit drugs abuse. Allergy: No acetaminophen, morphine, peanut oil PCP: Maria Eugenia Johnson Home medication: In glargine, nortriptyline, losartan, lisinopril, pioglitazone, metoprolol, Januvia, atorvastatin, aspirin, polyethylene glycol, gabapentin. 04/11/2025: Patient seen and evaluated bedside today. Patient acute distress. Patient abdominal pain improving. Patient feeling discomfort on and off, Maalox ordered. WBC trending down 11.8 TO 7.9. ESR 48 CRP 1.59. GI consult appreciated and possible endoscopy. Objective vital signs Vital Sign Date Time Temp Pulse Resp B/P (MAP) Pulse Ox O2 Delivery O2 Flow Rate FiO2 04/11/25 09:30 97.2 103 20 134/131 (132) 99 97.2 04/11/25 08:00 Room Air* 0 21 Total Intake and Output 04/10/25 04/10/25 04/11/25 15:00 23:00 07:00 Intake Total 150 ml 925 ml 120 ml Balance 150 ml 925 ml 120 ml medications Current Medications Medications Dose Ordered Sig/Roel Route Start Time Stop Time Status Last Admin Dose Admin Ondansetron HCl 4 mg Q4HP PRN IV 04/08/25 10:45 04/10/25 16:17 4 MG Enoxaparin Sodium 40 mg DAILY SC 04/08/25 10:45 04/11/25 08:35 40 MG Dextrose 50 ml UD PRN IV 04/08/25 10:45 Cancel Insulin Glargine 15 units DAILY SC 04/09/25 10:00 04/11/25 10:45 15 UNITS Nortriptyline HCl 25 mg BID PO 04/08/25 22:00 04/11/25 08:37 25 MG Hydralazine HCl 10 mg Q6HP PRN IV 04/08/25 13:15 04/08/25 13:43 10 MG Diagnostic Test (Pha) 1 strip IQ4HR 04/09/25 04:00 04/11/25 07:58 1 STRIP Insulin Human Regular IQ4HR SC 04/09/25 04:00 04/11/25 00:15 3 UNITS Dextrose 50 ml UD PRN IV 04/09/25 00:45 Acetaminophen/ Hydrocodone Bitart 1 tab Q6HPRN PRN PO 04/09/25 05:00 UNV Lorazepam 0.5 mg Q8HP PRN IV 04/09/25 05:15 04/09/25 05:21 0.5 MG Ceftriaxone Sodium 50 ml @ 100 mls/hr DAILY@09 IV 04/10/25 09:00 04/11/25 08:35 100 MLS/HR Metronidazole 100 ml @ 100 mls/hr Q8HR IV 04/09/25 14:00 04/11/25 05:35 100 MLS/HR Lactated Ringer's 1,000 ml @ 100 mls/hr Q10H IV 04/09/25 12:00 04/10/25 20:21 100 MLS/HR Metoprolol Succinate 25 mg DAILY PO 04/10/25 10:00 04/11/25 08:38 25 MG Metoclopramide HCl 5 mg Q8HR IV 04/09/25 22:00 04/11/25 05:35 5 MG Pantoprazole Sodium 40 mg BID IV 04/10/25 22:00 04/11/25 08:35 40 MG Hydromorphone HCl 1 mg Q4HPRN PRN IV 04/10/25 15:45 04/11/25 08:38 1 MG Examination Patient lying on bed.. General: The patient alert and oriented in person place and time. Patient following commands HEENT: Normocephalic, atraumatic, normal reactive pupils, EOM intact, pink conjunctiva, pink moist mucous membrane Respiratory/pulmonary: Bilateral chest expansion, no pain on palpation of chest wall, clear lungs bilaterally, vesicular murmurs present in almost all lung edmondson, no associated crackles or wheezes. Cardiovascular: Tachycardic, normal S1 and S2, no murmurs Abdomen: Abdomen nondistended, normal bowel sounds, soft, mild tender on deep palpation epigastric region. Extremities: No deformities, there is no peripheral edema present at the lower extremities, normal pulses Skin: No rashes or pruritus, there is no sacral edema present at this time. Neurological: Intact cranial nerves with no focal neurologic deficits laboratory and microbiology Laboratory Tests 04/11/25 04:32 Test 04/11/25 04:32 Range/Units Serum Glucose 82 74-106 mg/dL Microbiology Date/Time Source Procedure Growth Status 04/09/25 18:27 Blood Blood Culture - Preliminary NO GROWTH AFTER 24 HOURS OF INCUBATION. Resulted 04/09/25 05:00 Nose MRSA Screen - Final Complete Problem List/Assessment/Plan Problem List/Assessment/Plan Possible Hyperosmolar hyperglycemic state Likely diabetic ketoacidosis Type 2 diabetes mellitus with hyperglycemia Tele monitor Beta hydroxybutyrate >4.5 ABG: PH 7.44, pCO2 33.4, PO2 77.1, SaO2 95.7 IV fluid resuscitation s/p Insulin drip Basal bolus insulin Monitor blood sugar Hemoglobin A1c- 12.3 Echocardiogram Serum cortisol THS Monitor electrolytes Sepsis likely gastroenteritis Likely concomitant gastritis Intractable abdominal pain likely gastroenteritis Gram-positive/Gram-negative bacteria Lipase 40 IVF PPI Maalox q.8h as needed Antiemetic Empiric antibiotic ceftriaxone metronidazole GI consult appreciated and possible EGD, when patient stable. KERLINE due to vasomotor nephropathy Hypokalemia IVF Avoid nephrotoxic drugs BMP Hypertensive hypertensive heart disease likely systolic/diastolic heart failure Metoprolol ER 25 mg Aspirin 81 mg home medication Mixed hyperlipidemia with diabetes Diabetic neuropathy Nortriptyline Atorvastatin Lifestyle modification Noncompliance with medical management Elevated alkaline phosphatase DVT prophylaxis: Lovenox GI prophylaxis: Pantoprazole Goals of care discussion. More than 21 minute spent with patient. Full code status. Case discussed with Dr. Medina Plan discussed with: Patient, Other (Nurse) My Orders My Orders Orders - VIJAY SALINAS RESIDENT Procedure Category Date Status Time Alum & Mag PHA 04/11/25 Transmitted Hydrox-Simethicone 11:00 Dietary Evaluation Review Comments: Nutrition Recommendation: 1) Advance to [facility] 60gm + cardiac diet as medically feasible 2) Monitor PO intake, lab values, weight trend, and I/O Expected Outcomes/Goals: Intake to meet >75% estimated needs Lab values to improve FU 2-3 days Visit Coding STANDARD RES Billing Provider: JACINTA MEDINA MD Date of Service if different f: Apr 11, 2025 Common Visit Codes: [id number] INP/OBS CARE(HIGH) VIJAY SALINAS RESIDENT Apr 11, 2025 11:08 JACINTA MEDINA MD Apr 14, 2025 14:21
[2025-04-11] MEDS: INSULIN LANTUS (GLARGINE) 1 /0.01ml (100units/ml) SC SCH (11:11)
[2025-04-11] MEDS: MAALOX PLUS or MAALOX 30 ML PO PRN (12:19)
--- NOTE | 2025-04-11 16:36 | DVHPN2 ---
Progress Note - Dictate Date Seen: Apr 11, 2025 Medical Necessity Reason Pt with a Central, PICC or Fol: No Subjective No new complaints Patient is still has epigastric pain discomfort and some nausea noncompliance with diabetic management vital signs Vital Sign Date Time Temp Pulse Resp B/P (MAP) Pulse Ox O2 Delivery O2 Flow Rate FiO2 04/11/25 14:52 98.3 96 18 139/92 (108) 96 98.3 04/11/25 08:00 Room Air* 0 21 Total Intake and Output 04/10/25 04/10/25 04/11/25 15:00 23:00 07:00 Intake Total 150 ml 925 ml 120 ml Balance 150 ml 925 ml 120 ml medications Current Medications Medications Dose Ordered Sig/Roel Route Start Time Stop Time Status Last Admin Dose Admin Ondansetron HCl 4 mg Q4HP PRN IV 04/08/25 10:45 04/10/25 16:17 4 MG Enoxaparin Sodium 40 mg DAILY SC 04/08/25 10:45 04/11/25 08:35 40 MG Dextrose 50 ml UD PRN IV 04/08/25 10:45 Cancel Nortriptyline HCl 25 mg BID PO 04/08/25 22:00 04/11/25 08:37 25 MG Hydralazine HCl 10 mg Q6HP PRN IV 04/08/25 13:15 04/11/25 13:09 10 MG Diagnostic Test (Pha) 1 strip IQ4HR 04/09/25 04:00 04/11/25 16:17 1 STRIP Insulin Human Regular IQ4HR SC 04/09/25 04:00 04/11/25 16:33 3 UNITS Dextrose 50 ml UD PRN IV 04/09/25 00:45 Acetaminophen/ Hydrocodone Bitart 1 tab Q6HPRN PRN PO 04/09/25 05:00 UNV Lorazepam 0.5 mg Q8HP PRN IV 04/09/25 05:15 04/09/25 05:21 0.5 MG Ceftriaxone Sodium 50 ml @ 100 mls/hr DAILY@09 IV 04/10/25 09:00 04/11/25 08:35 100 MLS/HR Metronidazole 100 ml @ 100 mls/hr Q8HR IV 04/09/25 14:00 04/11/25 15:04 100 MLS/HR Lactated Ringer's 1,000 ml @ 100 mls/hr Q10H IV 04/09/25 12:00 04/11/25 14:12 100 MLS/HR Metoprolol Succinate 25 mg DAILY PO 04/10/25 10:00 04/11/25 08:38 25 MG Metoclopramide HCl 5 mg Q8HR IV 04/09/25 22:00 04/11/25 15:04 5 MG Pantoprazole Sodium 40 mg BID IV 04/10/25 22:00 04/11/25 08:35 40 MG Hydromorphone HCl 1 mg Q4HPRN PRN IV 04/10/25 15:45 04/11/25 13:09 1 MG Al Hydrox/Mg Hydrox/Simethicone 30 ml Q8HP PRN PO 04/11/25 11:00 Insulin Glargine 18 units DAILY SC 04/11/25 11:15 objective General Appearance: Alert, Cooperative, no distress HEENT: Atraumatic, PERRLA, EOMI Respiratory: Clear to auscultation, Normal air movement Cardiovascular: Regular rate, Normal S1 Abdominal: Normal bowel sounds, Soft, obese Extremities: No clubbing, No cyanosis, No edema Skin: No rashes, No breakdown Neuro: Normal speech Psych/Mental Status: Mental status NL laboratory and microbiology Laboratory Tests 04/11/25 04:32 Test 04/11/25 04:32 Range/Units Serum Glucose 82 74-106 mg/dL Problems(with codes): (1) Intractable vomiting with nausea (2) Uncontrolled diabetes mellitus (3) Fatty liver (4) Epigastric pain (5) Gastroparesis Prognosis Plan Patient would like to proceed with an endoscopy tomorrow to evaluate her upper GI symptoms Keep NPO after clear liquid breakfast Get consent Dietary Evaluation Review Comments: Nutrition Recommendation: 1) Advance to [facility] 60gm + cardiac diet as medically feasible 2) Monitor PO intake, lab values, weight trend, and I/O Expected Outcomes/Goals: Intake to meet >75% estimated needs Lab values to improve FU 2-3 days Plan discussed with: Patient, Other (Dr Rojas) TIM OLEA MD Apr 11, 2025 16:36
--- NOTE | 2025-04-11 17:01 | DVHSR ---
APPROVED REPORT EXAM: Two-dimensional and M-mode echocardiogram with Doppler and color Doppler. Blood Pressure: 120/87 mmHg INDICATION Tachycardia RISK FACTORS Obesity: Height: 5'7", Weight: 180 DIMENSIONS LVDd 4.6 (3.8-5.7cm) LA (2D) 4.2 (1.9-4.0cm) Aortic Root 3.2 (2.0-3.7cm) LVDs 3.2 (2.5-4.0cm) LA (MM) (1.9-4.0cm) Aortic Cusp Exc 1.8 (1.5-2.0cm) EF (%) 60.0 (55-70%) Rt. Atrium 4.2 (1.9-4.0cm) Asc. Aorta cm IVSd 1.2 (0.7-1.1cm) RV (D) (1.8-2.4cm) PWd 1.2 (0.7-1.1cm) Mitral Valve Mitral Mitral Stenosis E wave 1.15m/s MV Mean GR. mmHg A wave 1.08m/s MV Peak GR. mmHg E/A ratio 1.1 2D MVA cm2 DECEL Time 135ms PRESS 1/2 Time ms Aortic Valve Aortic Valve Aortic Stenosis V1 0.88m/s AO Mean GR. 3mmHg V2 1.30m/s AO Peak GR. 7mmHg LVOT Diameter 1.9 (1.8-2.4cm) Doppler BIN 1.92cm2 Pulmonic Valve V2 0.96m/s Other Information Technically limited study due to body habitus. Conclusion LV EF IS 65% NORMAL VALVES NORMAL RV FUNCTION NO EFFUSION
[2025-04-12] VITALS (8 sets, daily range): BP systolic 120–154; BP diastolic 72–106; PULSE 99–109; RESP 14–20; TEMP 36.8; O2SAT 93–100
--- NOTE | 2025-04-12 07:42 | ECG ---
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
[2025-04-12 09:09] LABS: Hematocrit 37.3 % (36.0-46.0); Hemoglobin 12.6 g/dL (12.2-16.2); Mean Corpuscular Hemoglobin 30.3 pg (28.0-32.0); Mean Corpuscular Volume 89.4 fL (80.0-100.0); Nucleated Red Blood Cells % 0.1 %
[2025-04-12 09:23] LABS: Chloride 104 mmol/L (98-107); Potassium 3.8 mmol/L (3.5-5.1); Sodium 140 mmol/L (136-145)
[2025-04-12 09:24] LABS: Anion Gap 8 (5-15); Calcium 9.1 mg/dL (8.7-10.4); Carbon Dioxide 28 mmol/L (20-31)
[2025-04-12 09:29] LABS: BUN/Creatinine Ratio 7.4 (10.0-20.0)
[2025-04-12 09:32] LABS: INR 1.7 (0.9-1.15); Partial Thromboplastin Time 26.9 SEC (24.5-34.5); Prothrombin Time 17.1 sec (9.3-11.8)
[2025-04-12 09:35] LABS: Blood Urea Nitrogen 5 mg/dL (9-23); Glucose 124 mg/dL (74-106)
[2025-04-12] MEDS ORDERED: PROPOFOL 10 MG/ML 20 ML IV ONE (12:14)
[2025-04-12] MEDS ORDERED: ONDANSETRON HCL 4 MG/2 ML VIAL ONE (12:14)
[2025-04-12] MEDS ORDERED: SODIUM CHLORIDE LOCK 10 ML ONE (12:14)
[2025-04-12] MEDS ORDERED: fentaNYL CITRATE 100 MCG/2 ML VL ONE (12:14)
[2025-04-12] MEDS ORDERED: MIDAZOLAM HCL 2MG/2ML 2ml VIAL (1mg/ml) ONE (12:14)
[2025-04-12] MEDS ORDERED: LIDOCAINE 1% INJ PF 5ML AMP ONE (12:14)
[2025-04-12] MEDS ORDERED: KETAMINE 50mg/ML 1ml syringe ONE (12:14)
[2025-04-12] MEDS ORDERED: fentaNYL CITRATE 100 MCG/2 ML VL IV PRN (12:30)
[2025-04-12] MEDS ORDERED: METOCLOPRAMIDE HCL 5MG/ml INJ 2ml VIAL IV PRN (12:30)
[2025-04-12] MEDS: ACCU-CHEK COMFORT CURVE STRIP VI ONE (12:30)
[2025-04-12] MEDS ORDERED: HYDROmorphone HCL 2 MG/ML VL/or syr IV PRN ×2 (12:30)
[2025-04-12] MEDS: LIDOCAINE VISCOUS 2% 15ML UD ONE (13:00)
--- NOTE | 2025-04-12 13:21 | DVHOP2 ---
Operative Report DATE OF OPERATION: 04/12/25 PROCEDURE: Upper Endoscopy with biopsy. PREOPERATIVE INDICATION: The patient is a 49 -year-old female undergoing endoscopy for nausea vomiting and abdominal pain POSTOPERATIVE DIAGNOSES: 1. 2 cm sliding-type hiatal hernia with [id number] grade C erosive esophagitis with distal esophageal ulcers extending into the esophagus for about 8-10 cm with underlying Barretts esophagus 2. Mild antral gastritis and minimal duodenitis of the duodenal bulb otherwise normal examination up to the 2nd and 3rd part of the duodenum PROCEDURE PERFORMED BY: Tim Small GI NURSE: Destiny SCOPE: Olympus videoendoscope. ASA CLASS: 3 PREOPERATIVE MEDICATIONS: Mac Dr. Terrell galeano PROCEDURE IN DETAIL: After obtaining an informed consent, the patient was placed on left lateral decubitus position. The patient was then sedated with the above medications. A bite block was placed between her teeth. The endoscope was then passed through the oropharynx, into the esophagus, and through the stomach and pylorus up to the second and third part of the duodenum. The endoscope was then withdrawn. The 2nd and 3rd part of the duodenum were normal and the duodenal bulb showed minimal duodenal. Duodenal biopsies were obtained. The pre-pyloric area antrum showed mild gastritis with some hyperemia erythema. Gastric biopsies were obtained On retroflexion the fundus and cardia were normal. The endoscope was then withdrawn into distal esophagus Patient had a 2 cm sliding-type hiatal hernia with severe grade C erosive esophagitis with some circumferential and linear ulcers extending into the distal 8-10 cm of the esophagus . Esophageal biopsies were obtained The remaining mid to proximal esophagus and oropharynx were unremarkable The patient tolerated the procedure well without difficulty. COMPLICATIONS : None SPECIMENS: Duodenal biopsies Gastric biopsies Esophageal biopsies DISPOSITION: Transfer back to the floor Stable PLAN: 1. Await for biopsy result 2. Will place pt on Protonix 40 mg bid IV 3. Carafate suspension 1 g p.o. 4 times a day 4. Lifestyle and dietary modifications for GERD 5. DC aspirin NSAIDs smoking alcohol 6. Trial of Reglan 5 mg IV q.8 hours 7. Outpatient follow up with me in 2-4 weeks to review results and discuss f urther management TIM SMALL MD Apr 12, 2025 13:21
[2025-04-12] MEDS: METOCLOPRAMIDE HCL 5MG/ml INJ 2ml VIAL IV SCH (15:32)
[2025-04-12] MEDS ORDERED: SUCR1TAB31 PO (15:37)
[2025-04-12] MEDS ORDERED: AUG875T PO (15:37)
[2025-04-12] MEDS ORDERED: METO5TAB67 PO (15:37)
[2025-04-12] MEDS ORDERED: ATOR20TA50 PO (15:37)
[2025-04-12] MEDS ORDERED: INSUINJ37 SC (15:37)
[2025-04-12] MEDS ORDERED: PANT40TA2 PO (15:37)
--- NOTE | 2025-04-12 15:53 | DVHDSRES ---
Discharge Summary Date of Admission Resident Creating Document: VIJAY SALINAS RESIDENT Apr 08, 2025 at 10:40 Date of Discharge: Apr 12, 2025 Labs/Diagnostic Data: Laboratory Results Test 04/12/25 09:05 04/12/25 08:55 04/10/25 04:53 04/09/25 05:09 POC Glucose 113 mg/dl (70-106) White Blood Count 6.1 10^3/uL (4.4-10.8) Red Blood Count 4.17 10^6/uL (4.0-5.20) Hemoglobin 12.6 g/dL (12.2-16.2) Hematocrit 37.3 % (36.0-46.0) Mean Corpuscular Volume 89.4 fL (80.0-100.0) Mean Corpuscular Hemoglobin 30.3 pg (28.0-32.0) Mean Corpuscular Hemoglobin Concent 33.8 g/dL (32.0-36.0) Red Cell Distribution Width 13.9 % (11.8-14.3) Platelet Count 269 10^3/uL (140-450) Mean Platelet Volume 7.8 fL (6.9-10.8) Neutrophils (%) (Auto) 56.0 % (37.0-80.0) Lymphocytes (%) (Auto) 31.3 % (10.0-50.0) Monocytes (%) (Auto) 8.4 % (0.0-12.0) Eosinophils (%) (Auto) 3.3 % (0.0-7.0) Basophils (%) (Auto) 1.0 % (0.0-2.0) Neutrophils # (Auto) 3.4 10 ^3/uL (1.6-8.6) Lymphocytes # (Auto) 1.9 10 ^3/uL (0.4-5.4) Monocytes # (Auto) 0.5 10 ^3/uL (0-1.3) Eosinophils # (Auto) 0.2 10 ^3/uL (0-0.8) Basophils # (Auto) 0.1 10 ^3/uL (0-0.2) Nucleated Red Blood Cells 0.1 % Prothrombin Time 17.1 sec (9.3-11.8) Prothrombin Time INR 1.70 (0.9-1.15) Activated Partial Thromboplast Time 26.9 SEC (24.5-34.5) Sodium Level 140 mmol/L (136-145) Potassium Level 3.8 mmol/L (3.5-5.1) Chloride Level 104 mmol/L (98-107) Carbon Dioxide Level 28 mmol/L (20-31) Anion Gap 8 (5-15) Blood Urea Nitrogen 5 mg/dL (9-23) Creatinine 0.68 mg/dL (0.550-1.02) Glomerular Filtration Rate Calc 105 mL/min (>90) BUN/Creatinine Ratio 7.4 (10.0-20.0) Serum Glucose 124 mg/dL (74-106) Calcium Level 9.1 mg/dL (8.7-10.4) Thyroid Stimulating Hormone (TSH) 0.67 uIU/mL (0.55-4.78) Cortisol AM Sample 16.67 ug/dL (5.27-22.45) Erythrocyte Sedimentation Rate 48 mm/hr (0-20) C-Reactive Protein High Sensitivity 1.59 mg/dL (<1.0) B-Type Natriuretic Peptide 9.40 pg/mL (0-100) Total Bilirubin 0.5 mg/dL (0.2-1.0) Aspartate Amino Transferase (AST) 21 U/L (13-40) Alanine Aminotransferase (ALT) 19 U/L (7-40) Alkaline Phosphatase 128 U/L (46-116) Total Protein 7.2 g/dL (5.7-8.2) Albumin 3.9 g/dL (3.2-4.8) Triglycerides Level 90 mg/dL (< 150) Cholesterol Level 167 mg/dL (< 200) LDL Cholesterol 90 mg/dL (< 100) HDL Cholesterol 63 mg/dL (40-59) Lipase 40 U/L (12-53) Test 04/08/25 18:07 04/08/25 11:42 04/08/25 11:01 04/08/25 08:45 Beta-Hydroxybutyric Acid 2.634 mmol/L (< 0.4) Blood Gas Specimen Type Arterial Blood Gas Sample Site Left radial Blood Gas Patient Temperature 37.0 Arterial Blood Date Drawn [id number] Arterial Blood pH 7.446 (7.350-7.450) Arterial Blood Partial Pressure CO2 33.4 mmHg (32.0-45.0) Arterial Blood Partial Pressure O2 77.1 mmHg (83.0-108.0) Arterial Blood HCO3 22.5 mmol/L (21.0-28.0) Arterial Blood Oxygen Saturation 95.7 % (94.0-98.0) Arterial Blood Base Excess -0.7 mmol/L (-2.0-3.0) Arterial Blood Oxyhemoglobin 94.0 % (94.0-98.0) Arterial Blood Carboxyhemoglobin 1.2 % (0.5-1.5) Arterial Blood Methemoglobin 0.6 % (0.0-1.5) Arterial Blood Deoxyhemoglobin 4.2 % (0.0-5.0) Enmanuel Test Yes Blood Gas Total Hemoglobin 15.60 g/dL (12.0-16.0) Blood Gas Modality Room air FiO2 % 21.0 Serum Osmolality 319 mOsm/kg (278-298) Phosphorus Level 4.0 mg/dL (2.4-5.1) Magnesium Level 1.9 mg/dL (1.6-2.6) Urine Color Yellow (Yellow) Urine Clarity Cloudy (Clear) Urine pH 6.0 (5.0-9.0) Urine Specific Bitely 1.038 (1.001-1.035) Urine Protein 3+ (Negative) Urine Ketones 2+ (Negative) Urine Blood Trace /uL (Negative) Urine Nitrite Negative (Negative) Urine Bilirubin Negative (Negative) Urine Urobilinogen Normal mg/dL (Negative) Urine Leukocyte Esterase Negative /uL (Negative) Urine RBC 8 /hpf (0 - 4) Urine Microscopic WBC 10 /HPF (0-5) Urine Squamous Epithelial Cells Few /hpf (<5) Urine Bacteria Mod /hpf (None Seen) Urine Hyaline Casts Few /lpf (0 - 2) Urine Mucus Few (None Seen) Urine Glucose 4+ mg/dL (Normal) Test 04/08/25 06:54 Hemoglobin A1c 12.3 % A1C (<5.7) Other Laboratory Tests 04/12/25 08:55 Brief Hx & Hospital Course: Ms. Hand is a 49-year-old female with past medical history of DM 2, HTN, HLD, peripheral neuropathy, noncompliant with medical management the complaint of abdominal pain associated with nausea and vomiting since yesterday. Pain was 8/10 intensity, localized, midepigastric area, no radiation, no aggravating and relieving factors. During admission patient blood sugar 460. As per patient, she had poor appetite and not eating properly last week and barely take her insulin as directed. Patient history of recent admission in [facility] and EGD done but unknown result. Patient feeling discomfort during deglutition but denies any fever, blood mixed vomiting. Currently denies any fever, headache, neck rigidity, dysuria or any focal weakness. Past Medical History: As stated in HPI Past Surgical History: Cholecystectomy Family History: Reviewed, non-contributory to the management of this case. Past Social History: he patient lives at home, denies smoking, alcohol or illicit drugs abuse. Allergy: No acetaminophen, morphine, peanut oil PCP: Maria Eugenia Johnson Home medication: In glargine, nortriptyline, losartan, lisinopril, pioglitazone, metoprolol, Januvia, atorvastatin, aspirin, polyethylene glycol, gabapentin. Hospital course: Patient admitted due to diabetes mellitus with hyperglycemia. During admission lab showed. Beta hydroxybutyrate >4.5 ABG: PH 7.44, pCO2 33.4, PO2 77.1, SaO2 95.7. Patient treated conservatively with IV fluid, insulin. And blood sugar coming down towards normal. Patient also having intractable abdominal pain associated with dysphagia. GI consulted and EGD done on 04/12/2025 which showed 2 cm sliding-type of hiatal hernia with [id number] grade C erosive esophagitis with distal esophageal ulcer extending into the esophagus for event 8-10 cm with underlying Bundy esophagus. Mild antral gastritis and minimal duodenitis of the duodenal bulb otherwise normal examination up to 2nd and 3rd part of the duodenum. Recommended to continue Protonix 40 mg p.o. b.i.d. and Carafate every 6 hour and Reglan [address] abdomen 04/08/2025 showed fluid in the distal esophagus, fatty atrophy of the pain case prominent over the pancreatic head with questionable mild fat stranding adjacent to the pancreatic head. During hospital stay, patient treated with both acute and chronic medical condition and patient symptoms significantly improved. On examination on 04/12/2025,, patient denies any fever, SOB, chest pain, dysuria, abdominal pain or any other acute distress. Continue Augmentin p.o. oral antibiotic for 5 days. Patient advised to resume home medication and medication sent to the pharmacy. Patient is hemodynamically stable for discharge. Patient has received maximum benefit from inpatient treatment. Time was given to answer patient's questions and concerns in layman terms and explained by RN. Patient verbalized understanding and agreed with treatment and follow-up. Patient was recommended to return to ER if he experiences any worsening symptoms not limited to current symptoms. Follow-up with PCP and outpatient continuity clinic Aaron morning within week after discharge. Follow up with GI outpatient clinic 2-4 weeks after discharge. Physical examination Constitutional: No: Fever, Chills, Sweats, Weakness, Malaise, Other Eyes: No: Pain, Vision change, Conjunctivae inflammation, Eyelid inflammation, Other, Redness ENT: No: Ear pain, Ear discharge, Nose pain, Nose discharge, Nose congestion, Mouth pain, Mouth swelling, Throat pain, Throat swelling, Other Respiratory: Shortness of breath; No: Cough, Dry, SOB with excertion, Wheezing, Hemoptysis, Pleuritic Pain, Sputum, Wheezing, Other Cardiovascular: No: Chest Pain, Palpitations, Orthopnea, Paroxysmal Noc. Dyspnea, Edema, Lt Headedness, Other Gastrointestinal: No: Nausea, Vomiting, Abdominal Pain, Diarrhea, Constipation, Melena, Hematochezia, Other Genitourinary: No Dysuria, No Frequency, No Incontinence, No Hematuria, No Retention, No Other Musculoskeletal: No: other, neck pain, shoulder pain, arm pain, back pain, hand pain, leg pain, foot pain Skin: No: Rash, Lesions, Jaundice, Bruising, Other Neurological: No: Weakness, Numbness, Incoordination, Change in speech, Confusion, Seizures, Other 27 minute spent with patient. Case discussed with patient, nurse, Dr. Medina. Operations or Procedures ORDERING PHYSICIAN: SHERRI FALCON PROCEDURE(s): ABPL - CT AB PEL WO CON-NO ORAL OR IV REASON: PAIN ORDER NUMBER(s): [id number], ACCESSION NUMBER(s): [id number] ADDENDUM ADDENDUM # 1 1.6 cm indeterminate right adrenal nodule ; unchanged from 2023. Adrenal protocol CT / MRI should be considered for further evaluation. ORIGINAL REPORT EXAM: CT CT AB PEL WO CON-NO ORAL OR IV History: PAIN Comparison Study: CT CT AB PEL WO CON-NO ORAL OR IV on DOS: 09/22/24, CT CT AB PEL WO CON-NO ORAL OR IV on DOS: 07/10/23, CT CT AB PEL WO CON-NO ORAL OR IV on DOS: 07/02/23 TECHNIQUE: Multidetector CT of the abdomen and pelvis without IV contrast. Axial, coronal and sagittal multiplanar reformats were obtained from the axial data set by the technologist. Radiation Dose Information: CT Dose: CTDI volume is 17.89 mGy. Dose-length product is 3.64 mGy*cm FINDINGS: The lung bases are clear. Heart size is within normal limits. Small pericardial effusion. Status post cholecystectomy. Liver, spleen, and left adrenal gland are unremarkable. 1.6 cm right adrenal nodule measuring up to 11 Hounsfield units. Moderate to significant fatty atrophy of the pancreatic head with questionable mild fat stranding adjacent to The pancreatic head. Non specific hyperdensity of the renal pyramids bilaterally. Otherwise , Kidneys, ureters, mildly distended urinary bladder are unremarkable. Uterus and adnexa are unremarkable. Fluid within the distal esophagus. Stomach is unremarkable. Small bowel loops are unremarkable. Appendix is unremarkable. Moderate amount of fecal material within the colon. No evidence of intraperitoneal free air or free fluid. No evidence of aortic aneurysm. Minimal atherosclerotic calcification of the aorta. No significant lymphadenopathy. Tiny fat containing umbilical hernia. Minimal subcutaneous emphysema of the left midabdominal ventral subcutaneous fat. No evidence of acute osseous abnormalities. IMPRESSION: Fluid within the distal esophagus. Aspiration precaution is recommended. Fatty atrophy of the pancreas most prominent over the pancreatic head with questionable mild fat stranding adjacent to The pancreatic head. Recommend correlation with lipase to exclude pancreatitis. Trace pericardial effusion. ATED BY: CHRISTIE GOODMAN DO DICTATED DATE/TIME: 04/08/25 183 SIGNED BY: CHRISTIE GOODMAN DO SIGNED DATE/TIME: 04/08/25 1832 CC: EXAM: CT CT AB PEL WO CON-NO ORAL OR IV History: PAIN Comparison Study: CT CT AB PEL WO CON-NO ORAL OR IV on DOS: 09/22/24, CT CT AB PEL WO CON-NO ORAL OR IV on DOS: 07/10/23, CT CT AB PEL WO CON-NO ORAL OR IV on DOS: 07/02/23 TECHNIQUE: Multidetector CT of the abdomen and pelvis without IV contrast. Axial, coronal and sagittal multiplanar reformats were obtained from the axial data set by the technologist. Radiation Dose Information: CT Dose: CTDI volume is 17.89 mGy. Dose-length product is 3.64 mGy*cm FINDINGS: The lung bases are clear. Heart size is within normal limits. Small pericardial effusion. Status post cholecystectomy. Liver, spleen, and left adrenal gland are unremarkable. 1.6 cm right adrenal nodule measuring up to 11 Hounsfield units. Moderate to significant fatty atrophy of the pancreatic head with questionable mild fat stranding adjacent to The pancreatic head. Non specific hyperdensity of the renal pyramids bilaterally. Otherwise , Kidneys, ureters, mildly distended urinary bladder are unremarkable. Uterus and adnexa are unremarkable. Fluid within the distal esophagus. Stomach is unremarkable. Small bowel loops are unremarkable. Appendix is unremarkable. Moderate amount of fecal material within the colon. No evidence of intraperitoneal free air or free fluid. No evidence of aortic aneurysm. Minimal atherosclerotic calcification of the aorta. No significant lymphadenopathy. Tiny fat containing umbilical hernia. Minimal subcutaneous emphysema of the left midabdominal ventral subcutaneous fat. No evidence of acute osseous abnormalities. IMPRESSION: Fluid within the distal esophagus. Aspiration precaution is recommended. Fatty atrophy of the pancreas most prominent over the pancreatic head with questionable mild fat stranding adjacent to The pancreatic head. Recommend correlation with lipase to exclude pancreatitis. Trace pericardial effusion. ATED BY: CHRISTIE GOODMAN DO DICTATED DATE/TIME: 04/08/25 1828 ORDERING PHYSICIAN: COREEN GUZMÁN PROCEDURE(s): CXRP - CHEST PORTABLE REASON: sob ORDER NUMBER(s): [id number], ACCESSION NUMBER(s): [id number] CHEST RADIOGRAPH INDICATION: sob TECHNIQUE: Single frontal view of the chest was obtained COMPARISON: XR CHEST 1 VIEW on DOS: 03/13/25, XY CHEST XRAY 1 VIEW on DOS: 09/25/24, XY CHEST XRAY 1 VIEW on DOS: 09/22/24 FINDINGS: Lines and Tubes: None Lungs: No focal consolidation. Pleura: No effusion. No pneumothorax. Cardiomediastinal contours: Unremarkable Bones: No acute osseous abnormality. IMPRESSION: 1. No acute cardiopulmonary disease. 2. No change from 09/25/2024. ATED BY: ALEXA MORLEY Jr., DO DICTATED DATE/TIME: 04/09/25 1131 Condition at Discharge: Stable Final Diagnosis/Problems List Type 2 diabetes mellitus with hyperglycemia Likely Hyperosmolar hyperglycemic state Ruled out diabetic ketoacidosis Nffuixcp-vj-dscitl grade C erosive esophagitis with underlying Barretts esophagus Sepsis likely gastroenteritis KERLINE due to vasomotor nephropathy Hypokalemia Hypertensive hypertensive heart disease likely systolic/diastolic heart failure Mixed hyperlipidemia with diabetes Diabetic neuropathy Noncompliance with medical management Elevated alkaline phosphatase Discharge Disposition: Home Discharge Instruct/Medications Diet: Consistent carbohydrate Activity: No Restrictions, As Tolerated Follow Up/Referral: PCP Follow-up with GI 2-4 weeks after discharge to discuss biopsy result Outpatient continuity clinic Saturday morning Scheduled Amoxicillin & Pot Clavulanate (Augmentin Tablet), 875 MG PO BID Atorvastatin Calcium (Atorvastatin Calcium), 1 TAB PO HS Gabapentin (Once-Daily) (Gabapentin), 300 MG PO BID Glucose Blood (Easy Touch Glucose Test S), 1 EA ACHS Insulin Lispro (Insulin Lispro), 8 UNIT IJ AC Isopropyl Alcohol (Isopropyl Alcohol Wipes), 70 % EX ACHS Losartan Potassium (Losartan Potassium), 1 TAB PO DAILY, (Reported) Nortriptyline HCl (Nortriptyline Hydrochlori), 25 MG PO BID Ondansetron HCl (Ondansetron), 4 MG PO BID Pantoprazole Sodium Sesquihydr (Protonix), 40 MG PO BID Sucralfate (Carafate), 1 GM PO QID Scheduled PRN Insulin Glargine (Lantus Solostar), 18 UNIT SC QPM PRN Metoclopramide Hcl (Reglan), 5 MG PO TID PRN Discontinued Medications Atorvastatin Calcium (Atorvastatin Calcium), 1 POW XX HS Insulin Glargine-Yfgn (Insulin Glargine), 26 UNIT SC HS Insulin Regular (Human) (Insulin Drip Kit (Open Heart Only)), 0 IV Q6HP PRN Pantoprazole Sodium Sesquihydr (Protonix), 40 MG PO DAILY Durable Medical Equipment Blood Glucose Monitoring Suppl (Easy Touch Glucose Monito), EA XX ABDIRIZAK, (DME) Lancets (Freestyle Lancets), EA XX ACHS, (DME) Discharge Statement: "Patient was advised to return to the ER or call 911 if any headaches, dizziness, shortness of breath, chest pain, abdominal pain, bleeding, fevers, or worsening of medical condition. Patient was counseled about treatment plan, medications, possible side effects, patientverbalized understanding. All questions were answered to the best of my ability. This discharge took greater then 30 minutes in planning, reviewing documentation, counseling the patient, and discussing with other team members." ASSESSMENT ASSESSMENT Assessment Visit Coding STANDARD RES Billing Provider: JACINTA MEDINA MD Date of Service if different f: Apr 12, 2025 Common Visit Codes: 68719-QTD/OBS DISCH DAY >30min VIJAY SALINAS RESIDENT Apr 12, 2025 15:53 JACINTA MEDINA MD Apr 14, 2025 14:32
[2025-04-12] MEDS: SUCRALFATE 1 GM/10 ML ORAL SUSP PO SCH (17:00)
[2025-04-12] MEDS: KETOROLAC TROMETH 30 MG/ML 1ML VIAL IV ONE (17:48)
== END 2025-04-12 19:35 | disposition home or self-care (01) | DRG 420 ==
LOC: ER 05:57 → OVERFLOW 10:40 → TELE-WESTW 04-09 17:40
PROVIDERS: ADMIT Student in an Organized Health Care Education/Training Program; ATTEND Internal Medicine Gastroenterology
PROC: 0DB98ZX Excision of Duodenum, Via Natural or Artificial Opening Endoscopic, Diagnostic (ICD-10-PCS; 2025-04-12)
PROC: 0DB68ZX Excision of Stomach, Via Natural or Artificial Opening Endoscopic, Diagnostic (ICD-10-PCS; 2025-04-12)
PROC: 0DB58ZX Excision of Esophagus, Via Natural or Artificial Opening Endoscopic, Diagnostic (ICD-10-PCS; principal; 2025-04-12 13:01)
DX: E11.00 Type 2 diabetes mellitus with hyperosmolarity without nonketotic hyperglycemic-hyperosmolar coma (NKHHC) (principal); N17.0 Acute kidney failure with tubular necrosis; A41.9 Sepsis, unspecified organism; I11.0 Hypertensive heart disease with heart failure; A04.8 Other specified bacterial intestinal infections; I50.40 Unspecified combined systolic (congestive) and diastolic (congestive) heart failure; K76.0 Fatty (change of) liver, not elsewhere classified; E11.40 Type 2 diabetes mellitus with diabetic neuropathy, unspecified; K86.89 Other specified diseases of pancreas; K22.10 Ulcer of esophagus without bleeding; E78.5 Hyperlipidemia, unspecified; K44.9 Diaphragmatic hernia without obstruction or gangrene; K29.70 Gastritis, unspecified, without bleeding; E87.6 Hypokalemia; E78.2 Mixed hyperlipidemia; R74.8 Abnormal levels of other serum enzymes; Z91.199 Patient's noncompliance with other medical treatment and regimen due to unspecified reason; Z83.3 Family history of diabetes mellitus; Z91.040 Latex allergy status; Z88.5 Allergy status to narcotic agent; Z91.010 Allergy to peanuts
CPT/HCPCS: 36415; 36600; 43239; 71045; 74176; 80048; 80053; 80061; 81001; 82010; 82533; 82805; 82962; 83036; 83690; 83735; 83880; 83930; 84100; 84443; 85025; 85610; 85652; 85730; 86141; 86850; 86900; 86901; 87040; 87081; 93005; 93306; 96361; 96374; G0378; J1815; J1885; J2250; J2405; J2470; J2704; J3480; J3490